=== PATIENT | female | born 1990 | race Caucasian/White ===

== ENCOUNTER 2019-06-15 17:35 | Inpatient (IN) ==
[2019-06-15] MEDS ORDERED: OXYTOCIN 30 UNITS/500 ML BAG IV PRN (20:40)
[2019-06-15] MEDS ORDERED: BUTORPHANOL TARTRATE 1 MG/ML VIAL IV ONE (20:44)
[2019-06-15] MEDS: LACTATED RINGER'S 1,000 ML IV PRN (20:45)
[2019-06-15] MEDS ORDERED: BUTORPHANOL TARTRATE 1 MG/ML VIAL ONE (20:55)
[2019-06-15] MEDS ORDERED: PENICILLIN G POTASSIUM 6 MU in DEXTROSE 5% 250 ML IV ONE (21:15)
[2019-06-15 21:16] LABS: Hematocrit (blood only) 37.9 % (37-47); Hemoglobin 12.5 g/dL (12.0-16.0); Mean Corpuscular Hemoglobin 31.3 pg (25-34); Mean Platelet Volume 12.2 fL (7.4-10.4); Platelet Count 181 K/uL (130-400); RDW Coefficient of Variation 14.1 % (11.5-14.5); RDW Standard Deviation 48.6 fL (36.4-46.3); Red Blood Count 3.99 M/uL (4.2-5.4); White Blood Count 12.69 K/uL (4.8-10.8)
[2019-06-15] MEDS ORDERED: fentaNYL citrate 100 MCG/2 ML VIAL ONE ×2 (22:12→22:35)
[2019-06-15] MEDS ORDERED: ePHEDrine sulfate 50 MG/ML AMP ONE (22:12)
[2019-06-15] MEDS ORDERED: BUPIVACAINE 0.25% 30 ML VIAL ONE (22:13)
[2019-06-15] MEDS ORDERED: fentaNYL 2MCG/ML ROPIV 1.25MG/ML 100 ML BAG EPI ONE (22:13)
--- NOTE | 2019-06-15 22:14 | Anesthesiology Consultation ---
Date of Service June 15, 2019 Assessment & Plan ASA ASA2 Proposed Anesthesia Anesthesia Type: Labor Epidural Risk / Benefits Reviewed With: PT / POA / Parent / Guardian, Accepts Plan and Informed Consent Obtained History Height/Weight Height: 5 ft 3 in Weight: 68.039 kg Allergies Allergy/AdvReac Type Severity Reaction Status Date / Time No Known Allergies Allergy Unverified 06/14/19 16:32 Medications Home Medications Medication Instructions Recorded Confirmed Last Taken vit-iron fum-folic ac 1 tab PO DAILY 06/15/19 06/15/19 06/15/19 08:00 [ Vitamin] Active Medications Generic Name Dose Route Start Last Admin Trade Name Freq PRN Reason Stop Dose Admin Penicillin G Potassium 6 mu/ 262 mls @ 262 mls/hr 06/15/19 21:15 06/15/19 21:22 Dextrose IV 06/15/19 22:14 262 mls/hr 2115 ONE Administration Exercise / Class Metabolic Activity II 4-5 Yardwork/Stairs/Walk up hill Past Anesthesia History No Hx of Anesthesia Complications and No Family Hx of Anesthesia Complications History of PONV No Hx of PONV and No Hx of Motion Sickness Social History Smoking Status: Never smoker Hx Alcohol Use: No Hx Substance Use: No substance use type: does not use Review of Systems denies fever/cough/ colds/ chest pain/ SOB/ LORE Constitutional: no fever and no chills Respiratory: no cough and no dyspnea denies LORE Cardiovascular: no chest pain and no dyspnea on exertion Physical Exam Vital Signs Last Vital Signs Temp 36.7 C 06/15/19 19:25 Pulse 100 H 06/15/19 19:29 Resp 18 06/15/19 19:25 BP 128/76 06/15/19 19:29 ENMT Mouth: no TMJ abnormality and no dentition abnormality Thyromental Distance: > or= 3.5 Finger Breadths Mallampati Class: II Neck neck extension not limited Respiratory normal respiratory effort; no respiratory distress Auscultation: lungs clear to auscultation bilaterally Cardiovascular Rate/Rhythm: regular rate and regular rhythm Neurologic moves all extremities Psychiatric Orientation: alert and oriented x 3 Testing Laboratory Results 06/15/19 20:52
[2019-06-15] MEDS ORDERED: NALOXONE HCL 1 MG in SODIUM CHLORIDE 0.9% 1000ML 1,000 ML IV PRN (22:16)
[2019-06-15] MEDS ORDERED: NALOXONE HCL 0.4 MG/1 ML VIAL/CARP IV PRN (22:16)
[2019-06-15] MEDS ORDERED: fentaNYL 2MCG/ML ROPIV 1.25MG/ML 100 ML BAG EPI PRN (22:16)
[2019-06-15] MEDS ORDERED: NALBUPHINE HCL INJ 10 MG/ML AMP IV PRN (22:16)
[2019-06-15] MEDS ORDERED: ONDANSETRON INJ 2 MG/ML 2 ML VIAL IV PRN (22:16)
[2019-06-15] MEDS ORDERED: DiphenhydrAMINE HCL 50 MG/ML VIAL IV PRN (22:16)
[2019-06-15] MEDS ORDERED: ePHEDrine sulfate 50 MG/ML AMP IV PRN (22:16)
--- NOTE | 2019-06-15 23:06 | Obstetrical Progress Note ---
Date of Service June 15, 2019 Subjective Admit Note 29 F P0000 at 40.5 weeks with early onset of labor. Cervix is 4/90/-1/intact. GBS is positive. FHT Cat 1. Patient to get epidural. Antibiotics running. Results & Data Vital Signs (Past 12 Hours) Vital Signs Temp Pulse Resp BP Pulse Ox 06/15/19 23:01 92 H 97 06/15/19 22:56 103 H 97 06/15/19 22:51 98 H 125/70 97 06/15/19 22:49 104 H 128/73 06/15/19 22:47 105 H 125/68 06/15/19 22:46 101 H 97 06/15/19 22:45 107 H 124/69 06/15/19 22:43 96 H 125/68 06/15/19 22:41 105 H 124/70 97 06/15/19 22:39 106 H 123/71 06/15/19 22:37 100 H 125/72 06/15/19 22:36 101 H 98 06/15/19 22:35 106 H 127/68 06/15/19 22:33 100 H 124/67 06/15/19 22:31 113 H 129/73 98 06/15/19 22:29 112 H 130/73 06/15/19 22:26 111 H 99 06/15/19 22:21 121 H 98 06/15/19 19:29 100 H 128/76 06/15/19 19:25 36.7 C 18 06/15/19 17:41 36.7 C 121 H 20 135/84
[2019-06-16] MEDS: LACTATED RINGER'S 1,000 ML IV PRN ×3 (01:20→11:19)
[2019-06-16] MEDS: PENICILLIN G POTASSIUM 3 MU in DEXTROSE 5% 100 ML IV PRN ×3 (02:15→09:48)
[2019-06-16] MEDS ORDERED: OXYTOCIN 30 UNITS/500 ML BAG IV PRN ×2 (06:42→13:28)
--- NOTE | 2019-06-16 06:44 | Obstetrical Progress Note ---
Date of Service June 16, 2019 Subjective patient checked by nurse and now 6 cm contractions are spaced out EFW 8lb. will start Oxytocin to augment contractions Results & Data Vital Signs (Past 12 Hours) Vital Signs Temp Pulse Resp BP Pulse Ox 06/16/19 06:41 73 95 06/16/19 06:36 76 95 06/16/19 06:34 73 108/56 L 06/16/19 06:31 75 95 06/16/19 06:26 80 95 06/16/19 06:21 75 96 06/16/19 06:19 76 110/57 L 06/16/19 06:16 78 95 06/16/19 06:11 86 97 06/16/19 06:06 92 H 118/69 97 06/16/19 06:04 92 H 115/71 06/16/19 06:02 86 109/63 06/16/19 06:01 86 96 06/16/19 05:59 18 06/16/19 05:56 90 97 06/16/19 05:51 90 96 06/16/19 05:46 90 98 06/16/19 05:41 94 H 96 06/16/19 05:36 79 96 06/16/19 05:34 78 100/60 06/16/19 05:31 82 96 06/16/19 05:30 16 06/16/19 05:26 85 95 06/16/19 05:21 87 95 06/16/19 05:20 79 98/53 L 06/16/19 05:16 87 95 06/16/19 05:11 90 96 06/16/19 05:06 85 95 06/16/19 05:03 97 H 99/58 L 06/16/19 05:01 37.3 C 82 18 95 06/16/19 05:00 18 06/16/19 04:56 89 95 06/16/19 04:52 86 94 06/16/19 04:51 90 95 06/16/19 04:49 76 98/49 L 06/16/19 04:46 89 94 06/16/19 04:43 93 H 94 06/16/19 04:41 87 95 06/16/19 04:36 89 95 06/16/19 04:34 88 97/55 L 06/16/19 04:32 89 94 06/16/19 04:31 99 H 95 06/16/19 04:30 16 06/16/19 04:26 85 95 06/16/19 04:21 85 95 06/16/19 04:19 86 99/50 L 06/16/19 04:16 83 95 06/16/19 04:11 83 95 06/16/19 04:06 87 93/53 L 96 06/16/19 04:01 86 95 06/16/19 04:00 18 06/16/19 03:56 85 96 06/16/19 03:51 88 95 06/16/19 03:49 86 98/55 L 06/16/19 03:46 90 96 06/16/19 03:41 91 H 96 06/16/19 03:36 89 96 06/16/19 03:34 82 99/52 L 06/16/19 03:31 84 96 06/16/19 03:30 16 06/16/19 03:26 90 95 06/16/19 03:21 91 H 95 06/16/19 03:19 98 H 116/62 06/16/19 03:16 91 H 95 06/16/19 03:15 37.2 C 18 06/16/19 03:11 90 95 06/16/19 03:06 85 16 95 06/16/19 03:04 113 H 108/67 06/16/19 03:01 84 95 06/16/19 02:56 94 H 95 06/16/19 02:51 88 106/69 95 06/16/19 02:46 97 H 96 06/16/19 02:41 98 H 96 06/16/19 02:36 95 H 16 98 06/16/19 02:34 88 106/65 06/16/19 02:31 89 95 06/16/19 02:26 85 96 06/16/19 02:21 91 H 100 06/16/19 02:20 92 H 117/68 06/16/19 02:19 37.7 C H 18 06/16/19 02:16 106 H 99 06/16/19 02:15 16 06/16/19 02:11 90 97 06/16/19 02:06 104 H 98 06/16/19 02:04 113 H 117/69 06/16/19 02:01 94 H 96 06/16/19 02:00 18 06/16/19 01:56 96 H 96 06/16/19 01:51 89 96 06/16/19 01:50 88 111/58 L 06/16/19 01:46 88 95 06/16/19 01:41 86 95 06/16/19 01:36 92 H 96 06/16/19 01:34 90 108/61 06/16/19 01:31 85 95 06/16/19 01:30 18 06/16/19 01:26 93 H 95 06/16/19 01:21 96 H 98 06/16/19 01:20 99 H 112/63 06/16/19 01:16 94 H 18 116/63 95 06/16/19 01:11 90 18 95 06/16/19 01:06 88 95 06/16/19 01:01 94 H 95 06/16/19 01:00 18 06/16/19 00:56 87 95 06/16/19 00:51 90 96 06/16/19 00:46 95 H 114/63 95 06/16/19 00:41 87 95 06/16/19 00:36 91 H 96 06/16/19 00:31 89 96 06/16/19 00:30 18 116/62 06/16/19 00:26 104 H 96 06/16/19 00:21 95 H 18 97 06/16/19 00:16 104 H 96 06/16/19 00:15 90 118/64 06/16/19 00:11 100 H 95 06/16/19 00:06 103 H 96 06/16/19 00:01 96 H 18 96 06/16/19 00:00 18 114/62 06/15/19 23:56 91 H 97 06/15/19 23:46 98 H 116/64 97 06/15/19 23:45 101 H 18 97 06/15/19 23:41 100 H 97 06/15/19 23:36 94 H 96 06/15/19 23:31 102 H 18 97 06/15/19 23:30 18 116/64 02 23:26 98 H 96 06/15/19 23:21 98 H 98 06/15/19 23:16 102 H 98 06/15/19 23:15 37.1 C 18 117/63 06/15/19 23:11 105 H 99 06/15/19 23:06 100 H 117/66 97 06/15/19 23:01 92 H 97 06/15/19 22:56 103 H 97 06/15/19 22:51 98 H 125/70 97 06/15/19 22:49 104 H 128/73 06/15/19 22:47 105 H 125/68 06/15/19 22:46 101 H 97 06/15/19 22:45 107 H 124/69 06/15/19 22:43 96 H 125/68 06/15/19 22:41 105 H 124/70 97 06/15/19 22:39 106 H 123/71 06/15/19 22:37 100 H 125/72 06/15/19 22:36 101 H 98 06/15/19 22:35 106 H 127/68 06/15/19 22:33 100 H 124/67 06/15/19 22:31 113 H 129/73 98 06/15/19 22:29 112 H 130/73 06/15/19 22:26 111 H 99 06/15/19 22:21 121 H 98 06/15/19 19:29 100 H 128/76 06/15/19 19:25 36.7 C 18
--- NOTE | 2019-06-16 08:12 | Obstetrical Progress Note ---
Date of Service June 16, 2019 Physical Exam Genitourinary: Manual OB Exam: + cervical dilation 7 cm, + cervical effacement 100% and + station -1 OB Exam Monitor Tracing: + external FHT monitor used, + external uterine monitor used, + category I and + normal FHT variability AROM with Amni-hook with clear fluid Results & Data Vital Signs (Past 12 Hours) Vital Signs Temp Pulse Resp BP Pulse Ox 06/16/19 08:06 83 98 06/16/19 08:04 90 115/61 06/16/19 08:01 84 96 06/16/19 07:56 80 96 06/16/19 07:51 80 96 06/16/19 07:49 79 111/59 L 06/16/19 07:46 88 96 06/16/19 07:41 85 97 06/16/19 07:36 83 96 06/16/19 07:34 86 113/59 L 06/16/19 07:31 83 97 06/16/19 07:26 84 97 06/16/19 07:21 91 H 119/69 97 06/16/19 07:16 90 97 06/16/19 07:11 89 96 06/16/19 07:08 36.9 C 20 06/16/19 07:06 92 H 96 06/16/19 07:05 94 H 115/65 06/16/19 07:01 97 H 97 06/16/19 06:56 78 95 06/16/19 06:51 80 96 06/16/19 06:50 78 107/59 L 06/16/19 06:46 83 16 95 06/16/19 06:41 73 95 06/16/19 06:36 76 95 06/16/19 06:34 73 108/56 L 06/16/19 06:31 75 95 06/16/19 06:30 16 06/16/19 06:26 80 95 06/16/19 06:21 75 96 06/16/19 06:19 76 110/57 L 06/16/19 06:16 78 95 06/16/19 06:11 86 97 06/16/19 06:06 92 H 118/69 97 06/16/19 06:04 92 H 115/71 06/16/19 06:02 86 109/63 06/16/19 06:01 86 96 06/16/19 05:59 18 02/02/20 05:56 90 97 06/16/19 05:51 90 96 06/16/19 05:46 90 98 06/16/19 05:41 94 H 96 06/16/19 05:36 79 96 06/16/19 05:34 78 100/60 06/16/19 05:31 82 96 06/16/19 05:30 16 06/16/19 05:26 85 95 06/16/19 05:21 87 95 06/16/19 05:20 79 98/53 L 06/16/19 05:16 87 95 06/16/19 05:11 90 96 06/16/19 05:06 85 95 06/16/19 05:03 97 H 99/58 L 06/16/19 05:01 37.3 C 82 18 95 06/16/19 05:00 18 06/16/19 04:56 89 95 06/16/19 04:52 86 94 06/16/19 04:51 90 95 06/16/19 04:49 76 98/49 L 06/16/19 04:46 89 94 06/16/19 04:43 93 H 94 06/16/19 04:41 87 95 06/16/19 04:36 89 95 06/16/19 04:34 88 97/55 L 06/16/19 04:32 89 94 06/16/19 04:31 99 H 95 06/16/19 04:30 16 06/16/19 04:26 85 95 06/16/19 04:21 85 95 06/16/19 04:19 86 99/50 L 06/16/19 04:16 83 95 06/16/19 04:11 83 95 06/16/19 04:06 87 93/53 L 96 06/16/19 04:01 86 95 06/16/19 04:00 18 06/16/19 03:56 85 96 06/16/19 03:51 88 95 06/16/19 03:49 86 98/55 L 06/16/19 03:46 90 96 06/16/19 03:41 91 H 96 06/16/19 03:36 89 96 06/16/19 03:34 82 99/52 L 06/16/19 03:31 84 96 06/16/19 03:30 16 06/16/19 03:26 90 95 06/16/19 03:21 91 H 95 06/16/19 03:19 98 H 116/62 06/16/19 03:16 91 H 95 06/16/19 03:15 37.2 C 18 06/16/19 03:11 90 95 06/16/19 03:06 85 16 95 06/16/19 03:04 113 H 108/67 06/16/19 03:01 84 95 06/16/19 02:56 94 H 95 06/16/19 02:51 88 106/69 95 06/16/19 02:46 97 H 96 06/16/19 02:41 98 H 96 06/16/19 02:36 95 H 16 98 06/16/19 02:34 88 106/65 06/16/19 02:31 89 95 06/16/19 02:26 85 96 06/16/19 02:21 91 H 100 06/16/19 02:20 92 H 117/68 06/16/19 02:19 37.7 C H 18 06/16/19 02:16 106 H 99 06/16/19 02:15 16 06/16/19 02:11 90 97 06/16/19 02:06 104 H 98 06/16/19 02:04 113 H 117/69 06/16/19 02:01 94 H 96 06/16/19 02:00 18 06/16/19 01:56 96 H 96 06/16/19 01:51 89 96 06/16/19 01:50 88 111/58 L 06/16/19 01:46 88 95 06/16/19 01:41 86 95 06/16/19 01:36 92 H 96 06/16/19 01:34 90 108/61 06/16/19 01:31 85 95 06/16/19 01:30 18 06/16/19 01:26 93 H 95 06/16/19 01:21 96 H 98 06/16/19 01:20 99 H 112/63 06/16/19 01:16 94 H 18 116/63 95 06/16/19 01:11 90 18 95 06/16/19 01:06 88 95 06/16/19 01:01 94 H 95 06/16/19 01:00 18 06/16/19 00:56 87 95 06/16/19 00:51 90 96 06/16/19 00:46 95 H 114/63 95 06/16/19 00:41 87 95 06/16/19 00:36 91 H 96 06/16/19 00:31 89 96 06/16/19 00:30 18 116/62 06/16/19 00:26 104 H 96 06/16/19 00:21 95 H 18 97 06/16/19 00:16 104 H 96 06/16/19 00:15 90 118/64 06/16/19 00:11 100 H 95 06/16/19 00:06 103 H 96 06/16/19 00:01 96 H 18 96 06/16/19 00:00 18 114/62 06/15/19 23:56 91 H 97 06/15/19 23:46 98 H 116/64 97 06/15/19 23:45 101 H 18 97 06/15/19 23:41 100 H 97 06/15/19 23:36 94 H 96 06/15/19 23:31 102 H 18 97 06/15/19 23:30 18 116/64 06/15/19 23:26 98 H 96 06/15/19 23:21 98 H 98 06/15/19 23:16 102 H 98 06/15/19 23:15 37.1 C 18 117/63 06/15/19 23:11 105 H 99 06/15/19 23:06 100 H 117/66 97 06/15/19 23:01 92 H 97 06/15/19 22:56 103 H 97 06/15/19 22:51 98 H 125/70 97 06/15/19 22:49 104 H 128/73 06/15/19 22:47 105 H 125/68 06/15/19 22:46 101 H 97 06/15/19 22:45 107 H 124/69 06/15/19 22:43 96 H 125/68 06/15/19 22:41 105 H 124/70 97 06/15/19 22:39 106 H 123/71 06/15/19 22:37 100 H 125/72 06/15/19 22:36 101 H 98 06/15/19 22:35 106 H 127/68 06/15/19 22:33 100 H 124/67 06/15/19 22:31 113 H 129/73 98 02/01/20 22:29 112 H 130/73 06/15/19 22:26 111 H 99 06/15/19 22:21 121 H 98
--- NOTE | 2019-06-16 10:25 | Obstetrical Progress Note ---
Date of Service June 16, 2019 Physical Exam Genitourinary: Manual OB Exam: + cervical dilation 9 cm, + cervical effacement 100%, + station 0 and + amniotic fluid clear OB Exam Monitor Tracing: + external FHT monitor used, + external uterine monitor used, + category I and + normal FHT variability Results & Data Vital Signs (Past 12 Hours) Vital Signs Temp Pulse Resp BP Pulse Ox 06/16/19 10:21 92 H 96 06/16/19 10:19 76 108/57 L 06/16/19 10:16 81 94 06/16/19 10:11 85 96 06/16/19 10:06 80 96 06/16/19 10:05 76 111/59 L 06/16/19 10:01 86 95 06/16/19 09:56 93 H 96 06/16/19 09:51 95 H 96 06/16/19 09:50 87 110/59 L 06/16/19 09:47 86 94 06/16/19 09:46 88 95 06/16/19 09:42 83 94 06/16/19 09:41 80 95 06/16/19 09:36 82 96 06/16/19 09:35 83 107/58 L 06/16/19 09:34 88 94 06/16/19 09:31 94 H 95 06/16/19 09:26 87 96 06/16/19 09:21 86 97 06/16/19 09:19 83 107/61 06/16/19 09:16 79 95 06/16/19 09:11 87 95 06/16/19 09:09 81 94 06/16/19 09:06 82 96 06/16/19 09:04 85 108/63 06/16/19 09:01 86 95 06/16/19 08:56 97 H 97 06/16/19 08:51 83 96 06/16/19 08:49 106 H 110/63 06/16/19 08:46 90 95 06/16/19 08:41 74 96 06/16/19 08:36 87 95 06/16/19 08:34 86 109/56 L 06/16/19 08:31 84 96 06/16/19 08:26 82 97 06/16/19 08:21 86 97 06/16/19 08:20 86 116/67 06/16/19 08:16 84 97 06/16/19 08:11 122 H 97 06/16/19 08:06 83 98 06/16/19 08:04 90 115/61 06/16/19 08:01 84 96 06/16/19 07:56 80 96 06/16/19 07:51 80 96 06/16/19 07:49 79 111/59 L 06/16/19 07:46 88 96 06/16/19 07:41 85 97 06/16/19 07:36 83 96 06/16/19 07:34 86 113/59 L 06/16/19 07:31 83 97 06/16/19 07:26 84 97 06/16/19 07:21 91 H 119/69 97 06/16/19 07:16 90 97 06/16/19 07:11 89 96 06/16/19 07:08 36.9 C 20 06/16/19 07:06 92 H 96 06/16/19 07:05 94 H 115/65 06/16/19 07:01 97 H 97 06/16/19 06:56 78 95 06/16/19 06:51 80 96 06/16/19 06:50 78 107/59 L 06/16/19 06:46 83 16 95 06/16/19 06:41 73 95 06/16/19 06:36 76 95 06/16/19 06:34 73 108/56 L 06/16/19 06:31 75 95 06/16/19 06:30 16 06/16/19 06:26 80 95 06/16/19 06:21 75 96 06/16/19 06:19 76 110/57 L 06/16/19 06:16 78 95 06/16/19 06:11 86 97 06/16/19 06:06 92 H 118/69 97 06/16/19 06:04 92 H 115/71 06/16/19 06:02 86 109/63 06/16/19 06:01 86 96 06/16/19 05:59 18 06/16/19 05:56 90 97 06/16/19 05:51 90 96 06/16/19 05:46 90 98 06/16/19 05:41 94 H 96 06/16/19 05:36 79 96 06/16/19 05:34 78 100/60 06/16/19 05:31 82 96 06/16/19 05:30 16 06/16/19 05:26 85 95 06/16/19 05:21 87 95 06/16/19 05:20 79 98/53 L 06/16/19 05:16 87 95 06/16/19 05:11 90 96 06/16/19 05:06 85 95 06/16/19 05:03 97 H 99/58 L 06/16/19 05:01 37.3 C 82 18 95 06/16/19 05:00 18 06/16/19 04:56 89 95 06/16/19 04:52 86 94 06/16/19 04:51 90 95 06/16/19 04:49 76 98/49 L 06/16/19 04:46 89 94 06/16/19 04:43 93 H 94 06/16/19 04:41 87 95 06/16/19 04:36 89 95 06/16/19 04:34 88 97/55 L 06/16/19 04:32 89 94 06/16/19 04:31 99 H 95 06/16/19 04:30 16 06/16/19 04:26 85 95 06/16/19 04:21 85 95 06/16/19 04:19 86 99/50 L 06/16/19 04:16 83 95 06/16/19 04:11 83 95 06/16/19 04:06 87 93/53 L 96 06/16/19 04:01 86 95 06/16/19 04:00 18 06/16/19 03:56 85 96 06/16/19 03:51 88 95 06/16/19 03:49 86 98/55 L 06/16/19 03:46 90 96 06/16/19 03:41 91 H 96 06/16/19 03:36 89 96 06/16/19 03:34 82 99/52 L 06/16/19 03:31 84 96 06/16/19 03:30 16 06/16/19 03:26 90 95 06/16/19 03:21 91 H 95 06/16/19 03:19 98 H 116/62 06/16/19 03:16 91 H 95 06/16/19 03:15 37.2 C 18 06/16/19 03:11 90 95 06/16/19 03:06 85 16 95 06/16/19 03:04 113 H 108/67 06/16/19 03:01 84 95 06/16/19 02:56 94 H 95 06/16/19 02:51 88 106/69 95 06/16/19 02:46 97 H 96 06/16/19 02:41 98 H 96 06/16/19 02:36 95 H 16 98 06/16/19 02:34 88 106/65 06/16/19 02:31 89 95 06/16/19 02:26 85 96 06/16/19 02:21 91 H 100 06/16/19 02:20 92 H 117/68 06/16/19 02:19 37.7 C H 18 06/16/19 02:16 106 H 99 06/16/19 02:15 16 06/16/19 02:11 90 97 06/16/19 02:06 104 H 98 06/16/19 02:04 113 H 117/69 06/16/19 02:01 94 H 96 06/16/19 02:00 18 06/16/19 01:56 96 H 96 06/16/19 01:51 89 96 06/16/19 01:50 88 111/58 L 06/16/19 01:46 88 95 06/16/19 01:41 86 95 06/16/19 01:36 92 H 96 06/16/19 01:34 90 108/61 06/16/19 01:31 85 95 06/16/19 01:30 18 06/16/19 01:26 93 H 95 06/16/19 01:21 96 H 98 06/16/19 01:20 99 H 112/63 06/16/19 01:16 94 H 18 116/63 95 06/16/19 01:11 90 18 95 06/16/19 01:06 88 95 06/16/19 01:01 94 H 95 06/16/19 01:00 18 06/16/19 00:56 87 95 06/16/19 00:51 90 96 06/16/19 00:46 95 H 114/63 95 06/16/19 00:41 87 95 06/16/19 00:36 91 H 96 06/16/19 00:31 89 96 06/16/19 00:30 18 116/62 06/16/19 00:26 104 H 96 06/16/19 00:21 95 H 18 97 06/16/19 00:16 104 H 96 06/16/19 00:15 90 118/64 06/16/19 00:11 100 H 95 06/16/19 00:06 103 H 96 06/16/19 00:01 96 H 18 96 06/16/19 00:00 18 114/62 06/15/19 23:56 91 H 97 06/15/19 23:46 98 H 116/64 97 06/15/19 23:45 101 H 18 97 06/15/19 23:41 100 H 97 06/15/19 23:36 94 H 96 06/15/19 23:31 102 H 18 97 06/15/19 23:30 18 116/64 06/15/19 23:26 98 H 96 06/15/19 23:21 98 H 98 06/15/19 23:16 102 H 98 06/15/19 23:15 37.1 C 18 117/63 06/15/19 23:11 105 H 99 06/15/19 23:06 100 H 117/66 97 06/15/19 23:01 92 H 97 06/15/19 22:56 103 H 97 06/15/19 22:51 98 H 125/70 97 06/15/19 22:49 104 H 128/73 06/15/19 22:47 105 H 125/68 06/15/19 22:46 101 H 97 06/15/19 22:45 107 H 124/69 06/15/19 22:43 96 H 125/68 06/15/19 22:41 105 H 124/70 97 06/15/19 22:39 106 H 123/71 06/15/19 22:37 100 H 125/72 06/15/19 22:36 101 H 98 06/15/19 22:35 106 H 127/68 06/15/19 22:33 100 H 124/67 06/15/19 22:31 113 H 129/73 98 06/15/19 22:29 112 H 130/73 06/15/19 22:26 111 H 99
--- NOTE | 2019-06-16 13:07 | Delivery Summary ---
Vaginal Delivery Summary Date of Service June 16, 2019 Vaginal Delivery Summary Delivery Note live male over intact perineum with delayed cord clamping and Apgars 8/9 weight pending. Cord blood obtained and placenta delivered spontaneously and intact. Small vaginal tear on left sidewall of vagina repaired with 3/0 Vicryl. EBL 200 ml. Final sponge, needle and instrument count are correct. Mom and baby in stable condition.
[2019-06-16] MEDS ORDERED: SUPERCREAM 0.870% 15 GM JAR EXT PRN (13:28)
[2019-06-16] MEDS ORDERED: bisacodyL 10 MG SUPP PR PRN (13:28)
[2019-06-16] MEDS ORDERED: BENZOCAINE 20% AER SPR 82.5 GM CAN EXT PRN (13:28)
[2019-06-16] MEDS ORDERED: HYDROCORTISONE ACETATE 25 MG SUPP PR PRN (13:28)
[2019-06-16] MEDS ORDERED: DIPHTHERIA/TETANUS/PERTUSSIS 0.5 ML SYR/VIAL IM ONE (13:28)
[2019-06-16] MEDS ORDERED: ACETAMINOPHEN 325 MG TAB PO PRN (13:28)
--- NOTE | 2019-06-16 14:05 | Anesthesia Procedure Note ---
Date of Service June 16, 2019 Epidural catheter removed intact. Site clean without redness or edema. Patient satisfied with care. VSS Anesthesia Post Epidural Note Vital Signs Vital Signs: Temp Pulse Resp BP Pulse Ox 37.1 C 108 H 18 119/65 97 06/16/19 11:19 06/16/19 13:49 06/16/19 13:35 06/16/19 13:49 06/16/19 12:41 Notes Mental Status: alert / awake / arousable and participated in evaluation Patient Amnestic to Procedure: Yes Nausea / Vomiting: see Notes below Pain: adequately controlled Airway Patency, RR, SpO2: stable & adequate BP & HR: stable & adequate Hydration State: stable & adequate Anesthetic Complications: no major complications apparent and Pt Satisfied with anesthetic care
[2019-06-16] MEDS: IBUPROFEN 600 MG TAB PO PRN ×2 (16:02→20:12)
[2019-06-16] MEDS: DOCUSATE SODIUM 100 MG CAP PO SCH (20:12)
[2019-06-17] MEDS: IBUPROFEN 600 MG TAB PO PRN ×3 (00:32→16:28)
[2019-06-17 06:08] LABS: Hematocrit (blood only) 29.7 % (37-47); Hemoglobin 9.9 g/dL (12.0-16.0); Mean Corpuscular Hemoglobin 31.7 pg (25-34); Mean Corpuscular Hgb Conc 33.3 g/dL (32-36); Mean Corpuscular Volume 95.2 fL (80-100); Mean Platelet Volume 12.1 fL (7.4-10.4); Platelet Count 183 K/uL (130-400); RDW Coefficient of Variation 14.3 % (11.5-14.5); RDW Standard Deviation 49.7 fL (36.4-46.3); Red Blood Count 3.12 M/uL (4.2-5.4); White Blood Count 14.33 K/uL (4.8-10.8)
--- NOTE | 2019-06-17 08:35 | Obstetrical Progress Note ---
Date of Service June 17, 2019 Assessment & Plan (1) normal course: PPD #1 pot doing well anticipate disch tomorrow Subjective Ambulation: ambulating normally Voiding: no voiding problems Passing Gas:: Yes Diet Tolerance:: regular diet Lochia:: Small Feeding Type:: breast feeding Review of Systems All systems reviewed & are unremarkable except as noted in HPI & below Physical Exam Constitutional WD/WN, vitals as above well developed and well nourished Eyes PERRL, conjunctivae normal, anicteric sclerae Neck trachea midline, no thyromegaly Respiratory normal respiratory effort, lungs clear to auscultation Auscultation: no crackles, no rales and no wheezes Cardiovascular RRR, no murmur, no edema Gastrointestinal (Abdomen) normal bowel sounds, soft, nontender, no hepatosplenomegaly Uterus is below umbilicus Musculoskeletal no cyanosis or clubbing, extremities motor strength 5/5 Skin no rashes, warm and dry Neurologic patellar DTR's 2+ bilat, sensation intact Psychiatric A+Ox3, euthymic affect Genitourinary normal external appearance Results & Data Vital Signs (Past 12 Hours) Vital Signs Temp Pulse Resp BP Pulse Ox 06/17/19 05:05 36.8 C 105 H 16 120/79 98 06/17/19 00:30 36.5 C 100 H 17 116/78 97
[2019-06-17] MEDS: DOCUSATE SODIUM 100 MG CAP PO SCH ×2 (08:39→20:48)
[2019-06-17] MEDS: FERROUS SULFATE 325 MG TAB PO SCH (08:39)
[2019-06-17] MEDS: PRENATAL VITAMIN 1 TAB PO SCH (08:39)
[2019-06-17] MEDS ORDERED: NON-FORMULARY MEDICATION (Prenatal Vit-Iron Fum-Folic Ac [Prenatal Vitamin] 1 TAB) PO SCH (09:00)
[2019-06-17] MEDS ORDERED: bisacodyL 5 MG TABEC PO SCH (20:00)
[2019-06-18 06:29] LABS: Hematocrit (blood only) 33.1 % (37-47); Hemoglobin 10.8 g/dL (12.0-16.0)
[2019-06-18] MEDS: DOCUSATE SODIUM 100 MG CAP PO SCH (07:53)
[2019-06-18] MEDS: PRENATAL VITAMIN 1 TAB PO SCH (07:53)
[2019-06-18] MEDS: FERROUS SULFATE 325 MG TAB PO SCH (07:53)
--- NOTE | 2019-06-18 08:15 | Obstetrical Progress Note ---
Date of Service June 18, 2019 Subjective Patient is seen and examined. She feels well, no complaints. Desires d/c Ambulating without dizziness Voiding without difficulty Tolerating regular diet with out N&V Bleeding is minimal No fever/ chills/ CP/ SOB/ N&V/ Leg pain Breast feeding without problems Vital Signs Temp Pulse Pulse Resp BP BP Pulse Ox 06/18/19 08:00 37.1 C 88 18 114/75 97 06/17/19 23:20 36.7 C 75 14 115/64 98 06/17/19 19:30 36.8 C 96 H 18 129/74 99 06/17/19 16:05 37.1 C 95 H 16 116/64 98 06/17/19 12:15 36.7 C 87 18 109/70 99 Lab Results 06/15/19 06/17/19 06/18/19 Range/Units 20:52 05:43 05:44 WBC 12.69 H 14.33 H (4.8-10.8) K/uL RBC 3.99 L 3.12 L (4.2-5.4) M/uL Hgb 12.5 9.9 L 10.8 L (12.0-16.0) g/dL Hct 37.9 29.7 L 33.1 L (37-47) % MCV 95.0 95.2 (80-100) fL MCH 31.3 31.7 (25-34) pg MCHC 33.0 33.3 (32-36) g/dL RDW Std Deviation 48.6 H 49.7 H (36.4-46.3) fL RDW Coeff of [place] 14.1 14.3 (11.5-14.5) % Plt Count 181 183 (130-400) K/uL MPV 12.2 H 12.1 H (7.4-10.4) fL PE: General: Alert, orientedx3, NAD Abd: soft, NT, fundus firm, below Umbilicus Perineum intact, Lochia rubra minimal Ext; NT, no edema AP: 29 yo s/p , ppd# 2 VSS Afebrile doing well Continue routine care All questions were answered Discussed when to call D/C home , f/u in office Results & Data Vital Signs (Past 12 Hours) Vital Signs Temp Pulse Pulse Resp BP BP Pulse Ox 06/18/19 08:00 37.1 C 88 18 114/75 97 06/17/19 23:20 36.7 C 75 14 115/64 98
== END 2019-06-18 12:02 | disposition home or self-care (01) | DRG 807 ==
LOC: OPB 17:35 → 4S1 17:38 → 4S2 06-16 15:05

== ENCOUNTER 2021-07-01 08:12 | Inpatient (IN) ==
[2021-07-01] MEDS ORDERED: OXYTOCIN 30 UNITS/500 ML BAG IV PRN ×2 (13:38→22:38)
[2021-07-01] MEDS ORDERED: DINOPROSTONE 10 MG INSERT PV ONE (13:38)
[2021-07-01] MEDS ORDERED: PENICILLIN G POTASSIUM 6 MU in DEXTROSE 5% 250 ML IV STA (13:38)
[2021-07-01 14:13] LABS: Hematocrit (blood only) 36.5 % (37-47); Mean Corpuscular Hemoglobin 31.7 pg (25-34); Mean Corpuscular Hgb Conc 32.9 g/dL (32-36); Mean Corpuscular Volume 96.6 fL (80-100); Mean Platelet Volume 11.7 fL (7.4-10.4); Platelet Count 165 K/uL (130-400); RDW Coefficient of Variation 14.2 % (11.5-14.5); RDW Standard Deviation 50.1 fL (36.4-46.3); Red Blood Count 3.78 M/uL (4.2-5.4); White Blood Count 9.52 K/uL (4.8-10.8)
[2021-07-01] MEDS ORDERED: BUTORPHANOL TARTRATE 1 MG/ML VIAL IV PRN (15:23)
--- NOTE | 2021-07-01 15:23 | History & Physical Report ---
Date of Service July 01, 2021 Assessment & Plan (1) Post-dates : Plan: 31-year-old -0-0-1 at 41 weeks and 1 day gestation presenting to labor and delivery for scheduled induction of labor, Vital signs stable afebrile, Heart rate reassuring, GBS positive, Cervix unfavorable, Plan to admit, monitor, labs, Cervidil for cervical ripening, penicillin for GBS, All questions were answered. (2) GBS (group B Streptococcus carrier), +RV culture, currently : Admission and Anticipated Discharge Date Admission Date: July 01, 2021 History of Present Illness Primary Care Provider: Lowell Severino DO Patient is an 32-year-old -0-0-1 at 41 weeks and 1 day of gestation who was scheduled for induction of labor for postdates. She has been feeling mild irregular tightening of uterus 4 days but they have not been painful. Denies leakage of fluid nor vaginal bleeding. She reports good movements. Her has been uncomplicated except GBS positive. Denies medical problems, surgeries, any medications except vitamins and Valtrex as needed for cold sores. She denies any history of genital herpes. 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 Surgical History H/O elbow surgery [place] teeth extracted Family History Grandfather (Maternal) Diabetes Skin cancer Grandfather (Paternal) Skin cancer Social History Smoking Status: Never smoker Hx Alcohol Use: No Hx Substance Use: No Preferred Language: Latvian Communication Ability: Effective Wet Process Miller Required: No Beliefs That Will Affect Care: None marital status: Current Living Situation: Spouse and Family Other Information That Helps Us Care for You: No Feels Safe at Home: Yes Safety Concerns: Feels Safe At This Time Assistive Devices: None OB History Full-term in 2019, uncomplicated, live male , 8 pounds 2 ounces. 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 History of STDs, no history of herpes, chlamydia, gonorrhea Review of Systems as per Subjective / HPI Physical Exam Constitutional: well developed and well nourished She is comfortable, not in acute distress Gastrointestinal (Abdomen): normal bowel sounds, soft, nontender, no hepatosplenomegaly (Distended, gravid) Murphy's 8 pounds Genitourinary: normal external appearance OB Exam Abdomen: + vertex Manual OB Exam: + cervical dilation 2 cm, + cervical effacement 30% and + station high (Posterior) OB Exam Monitor Tracing: + external uterine monitor used and + category I Results & Data ([facility]) Vital Signs (Past 12 Hours) Vital Signs Temp Pulse Resp BP 07/01/21 15:14 97 H 115/71 07/01/21 12:45 37.1 C 20 Laboratory Results Lab Results 07/01/21 Range/Units 13:47 WBC 9.52 (4.8-10.8) K/uL RBC 3.78 L (4.2-5.4) M/uL Hgb 12.0 (12.0-16.0) g/dL Hct 36.5 L (37-47) % MCV 96.6 (80-100) fL MCH 31.7 (25-34) pg MCHC 32.9 (32-36) g/dL RDW Std Deviation 50.1 H (36.4-46.3) fL RDW Coeff of [place] 14.2 (11.5-14.5) % Plt Count 165 (130-400) K/uL MPV 11.7 H (7.4-10.4) fL Code Status & VTE Plan VTE Prophylaxis Plan VTE Prophylaxis will be ordered: No
[2021-07-01] MEDS ORDERED: ePHEDrine sulfate 50 MG/ML AMP ONE (19:05)
[2021-07-01] MEDS ORDERED: SODIUM CHLORIDE 0.9% INJ 10 ML VIAL ONE (19:05)
[2021-07-01] MEDS ORDERED: BUPIVACAINE 0.25% 30 ML VIAL ONE (19:05)
[2021-07-01] MEDS ORDERED: fentaNYL 2MCG/ML ROPIVACAINE 1.25MG/ML 100 ML BAG EPI ONE (19:06)
[2021-07-01] MEDS ORDERED: fentaNYL citrate 100 MCG/2 ML VIAL ONE (19:06)
[2021-07-01] MEDS: LACTATED RINGER'S 1,000 ML IV PRN ×2 (19:14→23:57)
[2021-07-01] MEDS ORDERED: LACTATED RINGER'S 500 ML IV ONE (19:21)
--- NOTE | 2021-07-01 19:21 | Obstetrical Progress Note ---
Date of Service July 01, 2021 Assessment & Plan Admission and Anticipated Discharge Date Admission Date: July 01, 2021 Subjective Patient is reevaluated. She started to feel contractions after 6 PM and they got more regular and painful after 6:30 PM. They have been every 1 to 2 minutes regularly since then. Patient rates the pain 8 out of 10 but declines any kind of pain medications including IV pain medication and epidural. Vital signs stable afebrile, heart rate category 1, Vaginal exam, Cervidil was removed, cervix is 2 cm, 40%, posterior and -3. Start IV fluids, IV penicillin. Continue to monitor closely. Results & Data ([facility]) Vital Signs (Past 12 Hours) Vital Signs Temp Pulse Resp BP 07/01/21 15:14 97 H 115/71 07/01/21 15:13 36.6 C 20 07/01/21 12:52 37.1 C 20 121/87 07/01/21 12:45 37.1 C 20
[2021-07-01] MEDS: D5W AND LACTATED RINGERS 1,000 ML IV SCH (20:19)
[2021-07-01] MEDS ORDERED: diphenhydrAMINE Capsule 25 MG CAP PO PRN (22:36)
--- NOTE | 2021-07-01 22:38 | Obstetrical Progress Note ---
Date of Service July 01, 2021 Assessment & Plan Admission and Anticipated Discharge Date Admission Date: July 01, 2021 Subjective Patient is reevaluated. She still feels the contractions but they are not as painful as before. She took a nap in between but woke up. Vital signs stable afebrile, heart rate category 1, [place] with regular contractions every 1 to 3 minutes, Vaginal exam, cervix is 2 to 3 cm dilated, 40% effaced, posterior and high, We will continue to monitor and start oxytocin per protocol when contractions spaced out. All questions were answered. Results & Data ([facility]) Vital Signs (Past 12 Hours) Vital Signs Temp Pulse Resp BP 07/01/21 19:23 18 07/01/21 19:20 36.7 C 84 18 113/70 07/01/21 15:14 97 H 115/71 07/01/21 15:13 36.6 C 20 07/01/21 12:52 37.1 C 20 121/87 07/01/21 12:45 37.1 C 20
[2021-07-01] MEDS: PENICILLIN G POTASSIUM 3 MU in DEXTROSE 5% 100 ML IV PRN (22:58)
[2021-07-02] MEDS: D5W AND LACTATED RINGERS 1,000 ML IV SCH (02:14)
[2021-07-02] MEDS: PENICILLIN G POTASSIUM 3 MU in DEXTROSE 5% 100 ML IV PRN ×4 (03:41→17:04)
[2021-07-02] MEDS: LACTATED RINGER'S 1,000 ML IV PRN ×2 (13:07→17:56)
[2021-07-02] MEDS ORDERED: Nursing to Pharmacy Communication SCH (14:45)
--- NOTE | 2021-07-02 15:30 | Labor Progress Brief Note ---
Date of Service July 02, 2021 Assessment & Plan Admission and Anticipated Discharge Date Admission Date: July 01, 2021 Physical Exam Genitourinary: Manual OB Exam: + cervical dilation 3 cm and 4 cm, + cervical effacement 70%, + station -2 and + amniotic fluid clear OB Exam Monitor Tracing: + external FHT monitor used, + external uterine monitor used, + category I and + normal FHT variability AROM with Amni-hook clear fluid Results & Data ([facility]) Vital Signs (Past 12 Hours) Vital Signs Temp Pulse Resp BP 07/02/21 15:26 85 128/77 07/02/21 13:50 100 H 115/77 07/02/21 08:58 93 H 120/76 07/02/21 07:38 109 H 120/72 07/02/21 07:34 36.6 C 107 H 20 118/74 07/02/21 05:30 18 07/02/21 05:00 37.0 C 18
[2021-07-02] MEDS ORDERED: diphenhydrAMINE 50 MG/ML VIAL IV PRN (15:43)
[2021-07-02] MEDS ORDERED: NALOXONE HCL 0.4 MG/1 ML VIAL/CARP IV PRN (15:43)
[2021-07-02] MEDS ORDERED: NALBUPHINE HCL INJ 10 MG/ML AMP IV PRN (15:43)
[2021-07-02] MEDS ORDERED: fentaNYL 2MCG/ML ROPIVACAINE 1.25MG/ML 100 ML BAG EPI PRN (15:43)
[2021-07-02] MEDS ORDERED: ePHEDrine sulfate 50 MG/ML AMP IV PRN (15:43)
[2021-07-02] MEDS ORDERED: ONDANSETRON INJ 2 MG/ML 2 ML VIAL IV PRN (15:43)
[2021-07-02] MEDS ORDERED: NALOXONE HCL 1 MG in SODIUM CHLORIDE 0.9% 1000ML 1,000 ML IV PRN (15:43)
[2021-07-02] MEDS ORDERED: fentaNYL citrate 100 MCG/2 ML VIAL ONE (16:09)
[2021-07-02] MEDS ORDERED: SODIUM CHLORIDE 0.9% INJ 10 ML VIAL ONE (16:09)
[2021-07-02] MEDS ORDERED: ePHEDrine sulfate 50 MG/ML AMP ONE (16:09)
[2021-07-02] MEDS ORDERED: fentaNYL 2MCG/ML ROPIVACAINE 1.25MG/ML 100 ML BAG EPI ONE (16:09)
[2021-07-02] MEDS ORDERED: BUPIVACAINE 0.25% 30 ML VIAL ONE (16:09)
--- NOTE | 2021-07-02 16:21 | Anesthesiology Consultation ---
Date of Service July 02, 2021 Assessment & Plan Chart Review Chart Review: Patient NOT seen in Pre Admission Testing and Acceptable Risk for Labor Epidural Consults Requested none ASA ASA2 Proposed Anesthesia Anesthesia Type: Labor Epidural and CSE Risk / Benefits Reviewed With: PT / POA / Parent / Guardian, Accepts Plan and Informed Consent Obtained History Height/Weight Height: 5 ft 3 in Weight: 69.853 kg Allergies Allergy/AdvReac Type Severity Reaction Status Date / Time No Known Allergies Allergy Verified 07/01/21 13:14 Medications Home Medications Medication Instructions Recorded Confirmed Last Taken vitamins-iron fumarate 27 1 tab PO DAILY 06/15/19 07/01/21 1 Day Ago mg iron-folic acid 0.8 mg tablet ~06/30/21 ( Vitamin) cholecalciferol (vitamin D3) 25 mcg PO DAILY 07/01/21 07/01/21 Unknown valacyclovir 1 gram tablet 0.01 mg PO BID 07/01/21 07/01/21 2 Days Ago ~06/29/21 Active Medications Generic Name Dose Route Start Last Admin Trade Name Darshan PRN Reason Stop Dose Admin Diphenhydramine HCl 25 mg 07/01/21 22:36 07/01/21 22:58 Diphenhydramine Capsule 25 Mg Cap PO 07/31/21 22:35 25 mg Q6 PRN Administration Itching Lactated Ringer's 1,000 mls @ 150 mls/hr 07/01/21 13:38 07/02/21 13:07 Lr IV 07/03/21 13:37 150 mls/hr .Q6H40M PRN Administration L&D Protocol Protocol Penicillin G Potassium 3 mu/ 106 mls @ 100 mls/hr 07/01/21 16:38 07/02/21 12:20 Dextrose IV 07/11/21 16:37 100 mls/hr Q4H PRN Administration GBS(+) Until Delivery Oxytocin 30 units in 500 mls @ 11 mls/hr 07/01/21 22:38 07/02/21 15:15 Pitocin IV 07/03/21 22:37 0.66 units/hr .Q24H PRN 11 mls/hr Labor Induction/Augmentation Titration Protocol 0.66 UNITS/HR NPO Date Last Intake of Fluids: 07/02/21 Time Last Intake of Fluids: 15:00 Date Last Intake of Solids: 07/01/21 Time Last Intake of Solids: 19:00 Past Medical History Medical History Anemia 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 Exercise / Class Metabolic Activity II 4-5 Yardwork/Stairs/Walk up hill Past Family History Family History Grandfather (Maternal) Diabetes Skin cancer Grandfather (Paternal) Skin cancer Past Surgical History Surgical History H/O elbow surgery [place] teeth extracted Past Anesthesia History No Hx of Anesthesia Complications and No Family Hx of Anesthesia Complications History of PONV No Hx of PONV and No Hx of Motion Sickness Social History Smoking Status: Never smoker Hx Alcohol Use: No Hx Substance Use: No substance use type: does not use Review of Systems no chest pain or sob Physical Exam Vital Signs Last Vital Signs Temp 36.6 C 07/02/21 07:34 Pulse 93 H 07/02/21 16:16 Resp 20 07/02/21 07:34 BP 128/77 07/02/21 15:26 Pulse Ox 100 07/02/21 16:16 ENMT Mouth: no TMJ abnormality Thyromental Distance: > or= 3.5 Finger Breadths Mallampati Class: II Neck normal visual inspection Respiratory normal respiratory effort Auscultation: lungs clear to auscultation bilaterally Cardiovascular Rate/Rhythm: regular rate and regular rhythm Musculoskeletal Spine: normal cervical ROM Neurologic moves all extremities Psychiatric Orientation: alert and oriented x 3 Testing Laboratory Results 07/01/21 13:47
--- NOTE | 2021-07-02 19:35 | Delivery Summary ---
Vaginal Delivery Summary Date of Service July 02, 2021 Vaginal Delivery Summary Delivery Note live male FRANCOIS over intact perineum with delayed cord clamping and Apgars 8/8 weight pending. Cord blood obtained followed by spontaneous delivery of intact placenta. No tears. EBL 200 ml. Final sponge and instrument count are correct. Mom and baby stable.
[2021-07-02] MEDS ORDERED: HYDROCORTISONE ACETATE 25 MG SUPP PR PRN (20:01)
[2021-07-02] MEDS ORDERED: OXYTOCIN 30 UNITS/500 ML BAG IV PRN (20:01)
[2021-07-02] MEDS ORDERED: DIPHTHERIA/TETANUS/PERTUSSIS 0.5 ML SYR/VIAL IM ONE (20:01)
[2021-07-02] MEDS ORDERED: BENZOCAINE 20% AER SPR 82.5 GM CAN EXT PRN (20:01)
[2021-07-02] MEDS ORDERED: ACETAMINOPHEN 325 MG TAB PO PRN (20:01)
[2021-07-02] MEDS ORDERED: bisacodyL 10 MG SUPP PR PRN (20:01)
--- NOTE | 2021-07-02 20:07 | Anesthesia Procedure Note ---
Date of Service July 02, 2021 Anesthesia Post Epidural Note Vital Signs Vital Signs: Temp Pulse Resp BP Pulse Ox 37.2 C 115 H 18 143/67 H 98 07/02/21 19:00 07/02/21 20:04 07/02/21 19:00 07/02/21 20:04 07/02/21 19:36 Pain Intensity Lower Abdomen: Pain Intensity: 2 Notes Mental Status: alert / awake / arousable and participated in evaluation Nausea / Vomiting: adequately controlled Pain: adequately controlled Airway Patency, RR, SpO2: stable & adequate BP & HR: stable & adequate Hydration State: stable & adequate Neuraxial Anesthesia: was administered and sensory block is resolving Anesthetic Complications: no major complications apparent and Pt Satisfied with anesthetic care Epidural: Removed without complications and With tip intact
[2021-07-02] MEDS: DOCUSATE SODIUM 100 MG CAP PO SCH (21:18)
[2021-07-03 06:43] LABS: Hematocrit (blood only) 31.9 % (37-47); Hemoglobin 10.4 g/dL (12.0-16.0); Mean Corpuscular Hemoglobin 31.2 pg (25-34); Mean Corpuscular Hgb Conc 32.6 g/dL (32-36); Mean Corpuscular Volume 95.8 fL (80-100); Mean Platelet Volume 11.8 fL (7.4-10.4); Platelet Count 164 K/uL (130-400); RDW Coefficient of Variation 14.5 % (11.5-14.5); RDW Standard Deviation 50.3 fL (36.4-46.3); Red Blood Count 3.33 M/uL (4.2-5.4); White Blood Count 10.66 K/uL (4.8-10.8)
[2021-07-03] MEDS: IBUPROFEN 600 MG TAB PO PRN ×2 (07:20→14:24)
[2021-07-03] MEDS ORDERED: PRENATAL VITAMIN 1 TAB PO SCH (08:00)
--- NOTE | 2021-07-03 08:02 | Obstetrical Progress Note ---
Date of Service July 03, 2021 Assessment & Plan Admission and Anticipated Discharge Date Admission Date: July 01, 2021 Subjective Patient is seen and examined. She feels well, no complaints. Desires d/c tonight Ambulating without dizziness Voiding without difficulty Tolerating regular diet with out N&V Bleeding is minimal No fever/ chills/ CP/ SOB/ N&V/ Leg pain Breast feeding without problems Vital Signs Temp Pulse Pulse Pulse Resp BP BP 07/03/21 07:24 86 114/73 07/03/21 04:18 99 H 119/57 L 07/03/21 04:15 36.6 C 99 H 18 07/03/21 03:26 37.3 C 105 H 18 109/55 L 07/02/21 23:11 115 H 117/73 07/02/21 23:10 37.7 C H 108 H 18 117/73 07/02/21 21:34 37.7 C H 105 H 18 116/70 07/02/21 21:19 105 H 114/68 07/02/21 21:04 98 H 18 106/62 07/02/21 20:49 107 H 120/69 07/02/21 20:34 103 H 16 121/80 07/02/21 20:19 104 H 16 121/62 07/02/21 20:04 115 H 18 143/67 H BP 07/03/21 07:24 07/03/21 04:18 07/03/21 04:15 119/57 L 07/03/21 03:26 07/02/21 23:11 07/02/21 23:10 07/02/21 21:34 07/02/21 21:19 07/02/21 21:04 07/02/21 20:49 07/02/21 20:34 07/02/21 20:19 07/02/21 20:04 Lab Results 07/01/21 07/03/21 Range/Units 13:47 06:16 WBC 9.52 10.66 (4.8-10.8) K/uL RBC 3.78 L 3.33 L (4.2-5.4) M/uL Hgb 12.0 10.4 L (12.0-16.0) g/dL Hct 36.5 L 31.9 L (37-47) % MCV 96.6 95.8 (80-100) fL MCH 31.7 31.2 (25-34) pg MCHC 32.9 32.6 (32-36) g/dL RDW Std Deviation 50.1 H 50.3 H (36.4-46.3) fL RDW Coeff of [place] 14.2 14.5 (11.5-14.5) % Plt Count 165 164 (130-400) K/uL MPV 11.7 H 11.8 H (7.4-10.4) fL PE: General: Alert, orientedx3, NAD Abd: soft, NT, fundus firm, below Umbilicus Perineum intact, Lochia rubra minimal Ext; NT, no edema AP: 31 yo s/p , ppd# 1 VSS Afebrile doing well Continue routine care All questions were answered D/C home tonight if baby will be discharged Discussed when to call Results & Data ([facility]) Vital Signs (Past 12 Hours) Vital Signs Temp Pulse Pulse Pulse Resp BP BP 07/03/21 07:24 86 114/73 07/03/21 04:18 99 H 119/57 L 07/03/21 04:15 36.6 C 99 H 18 07/03/21 03:26 37.3 C 105 H 18 109/55 L 07/02/21 23:11 115 H 117/73 07/02/21 23:10 37.7 C H 108 H 18 117/73 07/02/21 21:34 37.7 C H 105 H 18 116/70 07/02/21 21:19 105 H 114/68 07/02/21 21:04 98 H 18 106/62 07/02/21 20:49 107 H 120/69 07/02/21 20:34 103 H 16 121/80 07/02/21 20:19 104 H 16 121/62 07/02/21 20:04 115 H 18 143/67 H BP 07/03/21 07:24 07/03/21 04:18 07/03/21 04:15 119/57 L 07/03/21 03:26 07/02/21 23:11 07/02/21 23:10 07/02/21 21:34 07/02/21 21:19 07/02/21 21:04 07/02/21 20:49 07/02/21 20:34 07/02/21 20:19 07/02/21 20:04
[2021-07-03] MEDS ORDERED: CHOLECALCIFEROL 1,000 UNITS 25 MCG TAB PO SCH (09:00)
[2021-07-03] MEDS ORDERED: NON-FORMULARY MEDICATION (Prenatal Vit-Iron Fum-Folic Ac [Prenatal Vitamin] 27 mg iron- 0. PO SCH (09:00)
[2021-07-03] MEDS: DOCUSATE SODIUM 100 MG CAP PO SCH (09:08)
[2021-07-03] MEDS ORDERED: bisacodyL 5 MG TABEC PO SCH (20:00)
== END 2021-07-03 20:35 | disposition home or self-care (01) | DRG 807 ==
LOC: 4S1 12:41 → 4S2 12:44 → 4S1 12:52

== ENCOUNTER 2023-10-18 07:30 | Inpatient (IN) ==
[2023-10-18] MEDS ORDERED: ACETAMINOPHEN 500 MG TAB PO PRN (10:14)
[2023-10-18] MEDS ORDERED: LIDOCAINE 1% LOCAL 20 ML VIAL INFIL PRN (10:14)
[2023-10-18] MEDS ORDERED: CALCIUM CARBONATE 500 MG CHEWABLE TAB PO PRN (10:14)
[2023-10-18] MEDS: LACTATED RINGER'S 1,000 ML IV PRN (10:20)
--- NOTE | 2023-10-18 10:25 | History & Physical Report ---
Date of Service October 18, 2023 Assessment & Plan (1) GBS (group B Streptococcus carrier), +RV culture, currently : (2) Post-dates : (3) Post-term , 40-42 weeks of gestation: Plan: patient is an 33-year-old -0-0-2 at 41 weeks of gestation here today for scheduled induction of labor for postdates, Vital signs stable afebrile, heart rate reassuring, GBS positive, Cervix favorable, Plan to admit, labs, monitor, IV fluids, IV penicillin and oxytocin per protocol, Epidural for pain when patient desires. All questions were answered. Admission and Anticipated Discharge Date Admission Date: October 18, 2023 History of Present Illness Primary Care Provider: Lowell Severino DO patient is a 33-year-old -0-0-2 at 41 weeks of gestation who is here for scheduled induction of labor for postdates. She has no complaints. She denies contractions, leakage of fluid, vaginal bleeding. She reports good movements. Her has been uncomplicated except GBS positive. 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 Surgical History [place] teeth extracted H/O elbow surgery Family History Grandfather (Maternal) Diabetes Skin cancer Grandfather (Paternal) Skin cancer Social History Smoking Status: Never smoker Hx Alcohol Use: No Hx Substance Use: No Preferred Language: Setswana Communication Ability: Effective Hotel Receptionist Required: No Beliefs That Will Affect Care: None marital status: Current Living Situation: Spouse Other Information That Helps Us Care for You: No Feels Safe at Home: Yes Safety Concerns: Feels Safe At This Time Assistive Devices: None OB History FT 'sx2 in 2019 and 2021 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 History No h/o STD's Review of Systems as per Subjective / HPI Physical Exam Constitutional: WD/WN, vitals as above well developed, well nourished and comfortable Gastrointestinal (Abdomen): normal bowel sounds, soft, nontender, no hepatosplenomegaly Genitourinary: no vaginal lesions, no adnexal mass normal external appearance OB Exam Abdomen: + vertex Manual OB Exam: + cervical dilation 3 cm, + cervical effacement 20% and + station high (-3) OB Exam Monitor Tracing: + external uterine monitor used and + category I Results & Data Vital Signs (Past 12 Hours) Vital Signs Temp Pulse Resp BP 10/18/23 08:14 118 H 10/18/23 08:14 135/87 10/18/23 07:59 37.1 C 20 10/18/23 07:53 144 H 133/87 10/18/23 07:52 20 10/18/23 07:52 37.1 C 20 (2) Post-dates Post-term type: 40-42 weeks gestation Qualified Code(s): O48.0 - Post-term
[2023-10-18] MEDS: OXYTOCIN 30 UNITS/NSS 30 UNITS/500 ML BAG IV PRN ×2 (10:34→19:45)
[2023-10-18 10:53] LABS: Hematocrit (blood only) 35.2 % (37.0-47.0); Hemoglobin 11.7 g/dl (12.0-16.0); Mean Corpuscular Hgb Conc 33.2 g/dL (32.0-36.0); Mean Corpuscular Volume 93.1 fL (80.0-100.0); Mean Platelet Volume 12.2 fL (9.4-12.4); Platelet Count 198 K/uL (130-400); RDW Coefficient of Variation 13.5 % (11.5-14.5); RDW Standard Deviation 46.1 fL (36.4-46.3); Red Blood Count 3.78 M/uL (4.20-5.40); White Blood Count 8.66 K/ul (4.8-10.8)
[2023-10-18 11:03] LABS: Albumin Globulin Ratio 1.1 (0.9-2); Albumin Level 3.4 gm/dl (3.4-5.0); Bilirubin,Total 0.3 mg/dl (0.2-1.0); Calcium 8.5 mg/dl (8.6-10.3); Creatinine Clr Calc Pharmacy 152.3 ml/min; Est GFR (African American) 146.4 ml/min; Est GFR (Non-African American) 126.3 ml/min; Globulin 3.2 gm/dl (2.5-4.0); Total Protein 6.6 gm/dl (6.0-8.3)
[2023-10-18] MEDS: PENICILLIN GK 6 MU in DEXTROSE 5% 250 ML IV STA (11:12)
[2023-10-18] MEDS: PENICILLIN GK 3 MU in DEXTROSE 5% 100 ML IV PRN (14:48)
--- NOTE | 2023-10-18 15:34 | Obstetrical Progress Note ---
Date of Service October 18, 2023 Assessment & Plan Admission and Anticipated Discharge Date Admission Date: October 18, 2023 Subjective Patient is related. She has been on Pitocin since this morning. Feels co ntractions as mild tightening denies any pain no discomfort. second bag of penicillin is being given. heart rate category 1, [place] showing contractions every 2 to 3 minutes, Vaginal exam, cervix 3 to 4 cm dilated, 50% effaced, -2, AROM, clear fluid obtained, Continue monitor closely, Epidural when patient desires. Results & Data Vital Signs (Past 12 Hours) Vital Signs Temp Pulse Resp BP 10/18/23 14:46 93 H 10/18/23 14:46 125/71 10/18/23 13:50 77 10/18/23 13:50 120/77 10/18/23 12:45 88 10/18/23 12:45 126/82 10/18/23 11:58 80 10/18/23 11:58 128/81 10/18/23 10:44 20 10/18/23 10:44 36.6 C 20 10/18/23 10:44 97 H 10/18/23 10:44 127/80 10/18/23 08:14 118 H 10/18/23 08:14 135/87 10/18/23 07:59 37.1 C 20 10/18/23 07:53 144 H 133/87 10/18/23 07:52 20 10/18/23 07:52 37.1 C 20
--- OUTSIDE RECORDS SUMMARY | 2023-10-18 15:49 | External Medical Summary | Summary of Care ---
Author Name Unknown Organization [facility] Address [address] [place] [address] Phone [phone] Care Team Providers Care Child Welfare Counselor Name Role Phone Juan CarlosLowell joseph Primary Care Provider [phone] Reason for Visit * Reason Comments Return Visit Encounter Details Date Type Department Care Team (Late st Contact Info) Description 10/03/2023 8:15 AM EDT Office Visit Gynecology/Obstetri [facility] [address] [facility] [place] [address] Santa Ortega CNM [address] [place] [address] Nurse Francois [facility] Beginnings Return [facility] [address] Normal intrauterine , antepartum*; Late care Allergies No known active allergiesdocumented as of this encounter (statuses as of 10/03/2023) Medications Medication Sig Dispensed Refills Start Date End Date Status Vit-Fe Fumarate-FA (DAVID-RUL VITAMINS) 28-0.8 MG TABS Take by mouth. Active Triamcinolone Acetonide 0.1 % External Ointment (Aristocort) Apply topically to affected area 2 times a day. Apply to affected area 1-2 times a day 30 g 08/14/2020 Active valACYclovir HCl 1 GM Oral Tablet (Valtrex)Indications:He rpetic gingivostomatitis take 2 tablets by mouth every 12 hours FOR 1 DAY FOR COLD SORES 8 Tablet 2 07/17/2023 Active Vitamin D3 Complete Oral Tablet Take by mouth. Active Azelaic Acid 15 % External Gel (Finacea)Indications:Ac ne vulgaris After skin is thoroughly washed and patted dry, gently but thoroughly massage a thin film of azelaic acid gel into the affected area twice daily 50 g 3 07/18/2023 Active Breast PumpIndications:Breast feeding status of mother MONTY 10/11/23, Z39.1, use as directed 1 Each 09/04/2023 Active documented as of this encounter (statuses as of 10/03/2023) Active Problems Problem Noted Date Diagnosed Date Normal 08/28/2023 Late care 08/28/2023 Overview: Started at 16 wks Health counseling 10/03/2022 Overview: Problem Action Taken Date entered Entered by Date resolved Need for food assistance referred to [facility] and local [facility] 10/03/2022 Viry Brown RN 10/03/2022 Problem Action Taken Date entered Entered by Date resolved Current needs or questions Patient denies having any current needs or questions 10/03/2022 Viry Brown RN 10/03/2022 Problem Action Taken Date entered Entered by Date resolved Late care Maternal Consult 04/28/2023 Viry Brown RN 04/28/2023 Problem Action Taken Date entered Entered by Date resolved Current needs or questions Patient denies having any current needs or questions 04/28/2023 Viry Brown RN 04/28/2023 Problem Action Taken Date entered Entered by Date resolved Current needs or questions Patient denies having any current needs or questions 06/26/2023 Viry Brown RN 06/26/2023 INFORMATION 05/27/2019 Overview: Daughter in law of Dr Fernandez( anesthesia) History of squamous cell carcinoma 08/07/2014 Multiple pigmented nevi 08/07/2014 Herpetic gingivostomatitis 02/15/2011 Estimated Date of Delivery Comme nts Yes 10/11/2023 Based on last me nstrual period of 01/04/2023 (Exact Date) documented as of this encounter (statuses as of 10/03/2023) Resolved Problems Problem Noted Date Diagnosed Date Resolved Date Supervision of normal 10/03/2022 08/28/2023 Carrier of group B Streptococcus 06/16/2021 08/28/2023 Antepartum anemia complicating 04/09/2021 08/28/2023 Overview: Taking protein and supplements though manager sharepoint rather than Vitron C. Supervision of other normal 12/23/2020 08/28/2023 Group beta Strep positive 05/24/2019 Supervision of normal first , antepartum 12/24/2018 12/23/2020 LSC (lichen simplex chronicus) 10/04/2012 11/01/2018 Other acne 02/15/2011 11/01/2018 documented as of this encounter (statuses as of 10/03/2023) Immunizations Name Administration Dates Next Due HPV Vaccine, 4-Valent 08/10/2014,02/07/2014 PPD 08/06/2014 Seasonal Influenza, Split, IIV3, With Preserve, Inj 02/15/2011 TDAP (age 10 and older)(Boostrix) 02/07/2014 documented as of this encounter Social History Tobacco Use Types Packs/Day Years Used Date Smoking Tobacco: Never Smokeless Tobacco: Never Alcohol Use Standard Drinks/Week Comments Not Currently 0 (1 standard drink = 0.6 oz pur e alcohol) rarely PHQ-2 Answer Date Recorded PHQ Adult Total Score 0 05/28/2023 Hunger Vital Sign Answer Date Recorded Within the past 12 months, y ou worried that your food would run out before you got the money to buy more. Never true 05/28/19 24 Within the past 12 months, t he food you bought just didn't last and you didn't have money to get more. Never true 05/28/2023 [place] Depression Scale Answer Date Recorded [place] Depression Scale Total 0 08/28/2023 The thought of harming myself has occurred to me . Never 08/28/2023 Estimated Date of Delivery Comme nts Yes 10/11/2023 Based on last me nstrual period of 01/04/2023 (Exact Date) Sex and Gender Information Value Date Recorded Sex Assigned at Female 10/03/2022 3:18 PM EDT Gender Identity Female 10/03/2022 3:18 PM EDT Sexual Orientation Straight 10/03/2022 3: 18 PM EDT Job Start Date Occupation Industry Not on file Not on file Not on file documented as of this encounter Last Filed Vital Signs Vital Sign Reading Time Taken Comments Blood Pressure 108/62 10/03/2023 8:24 AM EDT Pulse - - Temperature - - Respiratory Rate - - Oxygen Saturation - - Inhaled Oxygen Concentration - - Weight 72.6 kg (160 lb) 10/03/2023 8:24 AM EDT Height - - Body Mass Index 28.34 09/27/2023 7:58 AM EDT documented in this encounter Progress Notes * Karen Lindsay LPN - 10/03/2023 8:24 AM EDT Pt is currently 38w6d with an Estimated Date of Delivery: 10/11/23 - * Santa Ortega CNM - 10/03/2023 8:15 AM EDT Rea Fernandez is a 33 year old female here for her routine OB appointment at 38w6d Her Estimated Date of Delivery: 10/11/23 REVIEW OF SYSTEMS: She affirms movement. Denies vaginal bleeding, LOF, contractions, N/V, headaches Reports occasional sharp groin pain PHYSICAL EXAM: Filed Vitals: 10/03/23 0824 BP: 108/62 Weight: 72.6 kg (160 lb) +FHT 140s Fundal height 38 ASSESSMENT/PLAN: 1. Late care 2. Normal intrauterine , antepartum - labor precautions and kick counts reviewed - RTO in 1 week Santa Ortega CNM documented in this encounter Plan of Treatment Upcoming Encounters Date Type Department Care Team (Late st Contact Info) Description 10/10/2023 8:15 AM EDT Office Visit Gynecology/Obstetrics [facility] Parrish [address] [facility] [place] [address] Daphne Valdivia CRNP [address] [place] [address] Nurse Francois [facility] Return John [address] [place] [address] 06/28/2024 9:00 AM EST Office Visit Family Practice [facility] [place] [address] [facility] [place] [address] Lowell Severino DO [address] [facility] [place] [address] 08/05/2024 8:15 AM EDT Office Visit Dermatology [facility] [place] [address] [place] [address] Abraham Mcnulty MD [address] [facility] [place] [address] Health Maintenance Due Date Last Done Comments GARDASIL-HPV IMMUNIZATION SERIES (3 - 3-dose series) 11/02/2014 08/10/2014, 02/07/2014 HPV/Co-Test 2019 COVID-19 Vaccine ( season) 2023 Influenza Vaccine (FLU shot) (Season Ended) 2024 02/15/2011 DTaP,Tdap,and Td Vaccines (7 - Td or Tdap) 02/08/2024 02/07/2014, 02/09/1999, 07/17/1997, Additional history exists Depression Screening 05/28/2024 05/28/2023 Cervical Cancer Screening 08/12/2024 Pap Smear 08/12/2024 08/12/2021, 12/14, 05/07/2014, Additional history exists Hepatitis B Completed 11/17/1995, 09/1995, 04/14/1995 MENINGOCOCCAL (MENACTRA/MENVEO) Aged Out No longer eligible based on patient's age to complete this topic Pneumococcal Vaccine: Pediatrics (0 to 5 Years) and At-Risk Patients (6 to 64 Years) Aged Out No longer eligible based on patient's age to complete this topic documented as of this encounter Medical Devices Not on filedocumented as of this encounter Visit Diagnoses Diagnosis Normal intrauterine , antepartum- Primary Late care Insufficient care documented in this encounter Care Teams Child Welfare Counselor Relationship Specialty Start Date End Date Lowell Severino DO [address] [place] [address] PCP - General Family Medicine 05/20/19 documented as of this encounter
--- OUTSIDE RECORDS SUMMARY | 2023-10-18 15:49 | External Medical Summary | Summary of Care ---
Author Name Unknown Organization [facility] Address [address] [place] [address] Phone [phone] Care Team Providers Care Hand Engraver Name Role Phone Juan CarlosLowell joseph Primary Care Provider Encounter Details Date Type Department Care Team (Late st Contact Info) Description 09/25/2023 Telephone Gynecology/Obstetrics [facility] [address] [facility] [place] [address] Casandra Flowers PA-C [facility] [place] [address] Allergies No known active allergiesdocumented as of this encounter (statuses as of 09/25/2023) Medications Medication Sig Dispensed Refills Start Date End Date Status Vit-Fe Fumarate-FA (DAVID-RUL VITAMINS) 28-0.8 MG TABS Take by mouth. 0 Active Triamcinolone Acetonide 0.1 % External Ointment (Aristocort) Apply topically to affected area 2 times a day. Apply to affected area 1-2 times a day 30 g 0 08/14/2020 Active valACYclovir HCl 1 GM Oral Tablet (Valtrex)Indications:He rpetic gingivostomatitis take 2 tablets by mouth every 12 hours FOR 1 DAY FOR COLD SORES 8 Tablet 2 07/17/2023 Active Vitamin D3 Complete Oral Tablet Take by mouth. 0 Active Azelaic Acid 15 % External Gel (Finacea)Indications:Ac ne vulgaris After skin is thoroughly washed and patted dry, gently but thoroughly massage a thin film of azelaic acid gel into the affected area twice daily 50 g 3 07/18/2023 Active Breast PumpIndications:Breast feeding status of mother MONTY 10/11/23, Z39.1, use as directed 1 Each 0 09/04/2023 Active documented as of this encounter (statuses as of 09/25/2023) Active Problems Problem Noted Date Diagnosed Date Normal 08/28/2023 Late care 08/28/2023 Overview: Started at 16 wks Health counseling 10/03/2022 Overview: Problem Action Taken Date entered Entered by Date resolved Need for food assistance referred to [facility] and local food [employer] 10/03/2022 Viry Bronw RN 10/03/2022 Problem Action Taken Date entered [...] as of this encounter (statuses as of 09/25/2023) Resolved Problems Problem Noted Date Diagnosed Date Resolved Date Supervision of normal 10/03/2022 08/28/2023 Carrier of group B Streptococcus 06/16/2021 08/28/2023 Antepartum anemia complicating 04/09/2021 08/28/2023 Overview: Taking protein and supplements though grape pruner rather than Vitron C. Supervision of other normal 12/23/2020 08/28/2023 Group beta Strep positive 05/24/2019 Supervision of normal first , antepartum 12/24/2018 12/23/2020 LSC (lichen simplex chronicus) 10/04/2012 11/01/2018 Other acne 02/15/2011 11/01/2018 documented as of this encounter (statuses as of 09/25/2023) Immunizations Name Administration Dates Next Due HPV [...] money to get more. Never true 05/28/2023 [place] Depression Scale Answer Date Recorded [place] Depression Scale Total 0 08/28/2023 The thought [...] on file documented as of this encounter Miscellaneous Notes * Telephone Encounter - Karen Lindsay LPN - 09/25/2023 8:27 AM EDT ----- Message from Casandra Flowers PA-C sent at 09/25/2023 7:56 AM EDT ----- Please let patient know her GBS culture was positive. Thanks! Casandra Flowers PA-C documented in this encounter Plan of Treatment Upcoming Encounters Date Type Department Care Team (Late st Contact Info) Description 09/27/2023 8:00 AM EDT Office Visit Gynecology/Obstetrics [facility] [address] [place] [address] Tiffanie Glaser CRNP [address] [place] [address] Nurse Francois [facility] Return John [address] [place] [address] 10/03/2023 8:15 AM EDT Office Visit Gynecology/Obstetrics Murphy [facility] [address] [place] [address] Santa Ortega, PABLO [address] [place], [place] [address] [address] Nurse Francois [facility] Return John [address] [place] [address] 10/10/2023 8:15 AM EDT Office Visit Gynecology/Obstetrics Murphy [facility] [address] [place] [address] Daphne Valdivia CRNP [address] [place] [address] Nurse Francois [facility] Return John 132 [place] [address] 06/28/2024 9:00 AM EST Office Visit Family Practice [facility] 200 [facility] [place] [address] Lowell Severino DO [address] [facility] [place] [address] 08/05/2024 8:15 AM EDT Office Visit Dermatology [facility] [address] [facility] [place] [address] Abraham Mcnulty MD 200 [facility] [place] [address] Health Maintenance Due Date Last Done Comments [...] Not on filedocumented as of this encounter Care Teams Hand Engraver Relationship Specialty Start Date End Date Lowell Severino DO [address] [place] [address] PCP - General Family Medicine 05/20/19 documented as of this encounter
--- OUTSIDE RECORDS SUMMARY | 2023-10-18 15:49 | External Medical Summary | Summary of Care ---
Author Name Unknown Organization [facility] Address [address] [place] [address] Phone [phone] Care Team Providers Care Real Estate Sales Manager Name Role Phone SusanLowell richey Primary Care Provider Reason for Visit * Reason Comments Return Visit Encounter Details Date Type Department Care Team (Late st Contact Info) Description 09/27/2023 8:00 AM EDT Office Visit Gynecology/Obstetri cs [facility] [address] [place] [address] Tiffanie Glaser CRNP [address] [place] [address] Nurse Francois Healthy Beginnings Return [facility] [address] [place] [address] Normal in third trimester*; Late care Allergies No known active allergiesdocumented as of this encounter (statuses as of 09/27/2023) Medications Medication Sig Dispensed Refills Start Date [...] as of this encounter (statuses as of 09/27/2023) Active Problems Problem Noted Date Diagnosed Date Normal 08/28/2023 Late care 08/28/2023 Overview: Started at 16 wks Health counseling 10/03/2022 Overview: Problem Action Taken Date entered Entered by Date resolved Need for food assistance referred to [facility] and local [employer] 10/03/2022 Viry Brown RN 10/03/2022 Problem Action [...] as of this encounter (statuses as of 09/27/2023) Resolved Problems Problem Noted Date Diagnosed Date Resolved Date Supervision of normal 10/03/2022 08/28/2023 Carrier of group B Streptococcus 06/16/2021 08/28/2023 Antepartum anemia complicating 04/09/2021 08/28/2023 Overview: Taking protein and supplements though journal clerk rather than Vitron C. Supervision of other normal 12/23/2020 08/28/2023 Group beta Strep positive 05/24/2019 Supervision of normal first , antepartum 12/24/2018 12/23/2020 LSC (lichen simplex chronicus) 10/04/2012 11/01/2018 Other acne 02/15/2011 11/01/2018 documented as of this encounter (statuses as of 09/27/2023) Immunizations Name Administration Dates Next Due HPV [...] money to get more. Never true 05/28/2023 [place] Depression Scale Answer Date Recorded [place] Depression Scale Total 0 08/28/2023 The thought [...] Sign Reading Time Taken Comments Blood Pressure 118/68 09/27/2023 7:58 AM EDT Pulse - - Temperature - - Respiratory Rate - - Oxygen Saturation - - Inhaled Oxygen Concentration - - Weight 72.6 kg (160 lb) 09/27/2023 7:58 AM EDT Height 160 cm (5' 3") 09/27/2023 7:58 AM EDT Body Mass Index 28.34 09/27/2023 7:58 AM EDT documented in this encounter Progress Notes * Tiffanie Glaser CRNP - 09/27/2023 8:09 AM EDT 38w No concerns. Baby is active. Denies contractions, bleeding, LOF. Swelling has gone away, happy about that. LEA Silver * Roxie Skelton LPN - 09/27/2023 7:58 AM EDT 38w0d Denies any concerns documented in this encounter Plan of Treatment Upcoming Encounters Date Type Department Care Team (Late st Contact Info) Description 10/03/2023 8:15 AM EDT Office Visit Gynecology/Obstetrics [facility] [address] [place] [address] Santa Ortega CNM [address] [place] [address] [place] [address] Nurse Francois [facility] Return John [address] [place] [address] 10/10/2023 8:15 AM EDT Office Visit Gynecology/Obstetrics Murphy Parrish [address] [place] [address] BackerDaphne CRNP [address] [place] [address] Nurse Francois [facility] Return John [address] [place] [address] 06/28/2024 9:00 AM EST Office Visit Family Practice [facility] [address] [place] [address] Lowell Severino DO 200 [facility] [place] [address] 08/05/2024 8:15 AM EDT Office Visit Dermatology [facility] [address] [place] [address] Abraham Mcnulty MD 200 [facility] [place], [place] [address] Health Maintenance Due Date Last Done Comments [...] of this encounter Visit Diagnoses Diagnosis Normal in third trimester- Primary Late care Insufficient care documented in this encounter Care Teams Real Estate Sales Manager Relationship Specialty Start Date End Date Lowell Severino DO [address] [place] [address] PCP - General Family Medicine 05/20/19 documented as of this encounter
--- OUTSIDE RECORDS SUMMARY | 2023-10-18 15:49 | External Medical Summary | Summary of Care ---
Author Name Unknown Organization [facility] Address [address] [place] [address] Phone [phone] Care Team Providers Care Motor Vehicle Lecturer Name Role Phone Juan CarlosLowell joseph Primary Care Provider [phone] Reason for Visit * Reason Comments Return Visit Encounter Details Date Type Department Care Team (Late st Contact Info) Description 09/21/2023 9:15 AM EDT [facility] [address] [facility] [place] [address] Casandra Flowers PA-C [address] [place] [address] [place] [address] Nurse Francois Healthy [facility]nings Return [facility] [address] [facility] [place] [address] Normal in third trimester*; Late care Allergies No known active allergiesdocumented as of this encounter (statuses as of 09/21/2023) Medications Medication Sig Dispensed Refills Start Date [...] as of this encounter (statuses as of 09/21/2023) Active Problems Problem Noted Date Diagnosed Date Normal 08/28/2023 Late care 08/28/2023 Overview: Started at 16 wks Health counseling 10/03/2022 Overview: Problem Action Taken Date entered Entered by Date resolved Need for food assistance referred to [facility] and local food [employer] 10/03/2022 Viry Brown RN 10/03/2022 Problem Action [...] as of this encounter (statuses as of 09/21/2023) Resolved Problems Problem Noted Date Diagnosed Date Resolved Date Supervision of normal 10/03/2022 08/28/2023 Carrier of group B Streptococcus 06/16/2021 08/28/2023 Antepartum anemia complicating 04/09/2021 08/28/2023 Overview: Taking protein and supplements though supervisor pigment making rather than Vitron C. Supervision of other normal 12/23/2020 08/28/2023 Group beta Strep positive 05/24/2019 Supervision of normal first , antepartum 12/24/2018 12/23/2020 LSC (lichen simplex chronicus) 10/04/2012 11/01/2018 Other acne 02/15/2011 11/01/2018 documented as of this encounter (statuses as of 09/21/2023) Immunizations Name Administration Dates Next Due DTaP Dipth/Tet/Acell Pertussis (Infanrix), Peds 02/09/1999,07/17/1997,06/19/1995, 995,09/09/1994 HIB PRP-T, 4 dose (ActHib) 04/14/1995 HPV Vaccine, 4-Valent 08/10/2014,02/07/2014 Hepatitis B, 0-19 yrs 11/17/1995,06/19/1995,1205/1994 MMR - Measles/Mumps/Rubella Vaccine 07/17/1997,0 09/09/1994 OPV - Polio Virus Vaccine (Oral) 998,06/19/1995,04/14/1995, 995 PPD 08/06/2014,06/20/2001 Seasonal Influenza, Split, I IV3, With Preserve, Inj 02/15/2011 TDAP (age 10 [...] money to get more. Never true 05/28/2023 [place] Depression Scale Answer Date Recorded [place] Depression Scale Total 0 08/28/2023 The thought [...] Sign Reading Time Taken Comments Blood Pressure 110/64 09/21/2023 9:11 AM EDT Pulse - - Temperature - - Respiratory Rate - - Oxygen Saturation - - Inhaled Oxygen Concentration - - Weight 73 kg (161 lb) 09/21/2023 9:11 AM EDT Height 160 cm (5' 3") 09/21/2023 9:11 AM EDT Body Mass Index 28.52 09/21/2023 9:11 AM EDT documented in this encounter Progress Notes * Casandra Flowers PA-C - 09/21/2023 9:14 AM EDT Rea Fernandez is a 33 year old female here for her routine OB appointment at 37w1d Her Estimated Date of Delivery: 10/11/23 REVIEW OF SYSTEMS She affirms movement. Denies vaginal bleeding, LOF, contractions, N/V, headaches, vision changes, chest pain, deep calf pain/swelling, RUQ pain. PHYSICAL EXAM Filed Vitals: 09/21/23 0911 BP: 110/64 Weight: 73 kg (161 lb) Height: 1.6 m (5' 3") +FHT 140s Fundal height 35 cm. Patient declines U/S at this time. GBS swab collected. Payer Specialist Documentation Patient offered citizen participation specialist and accepted. Name of citizen participation specialist: Chary Diop LPN. ASSESSMENT/PLAN Normal in third trimester (Primary) - GROUP B STREP CULTURE/PCR; Future; Expected date: 09/21/2023 Late care Supervision of - recommended Tdap vaccine. Patient declines. - GBS swab collected today - labor precautions and kick counts reviewed RTO in 1 week Casandra Flowers PA-C 09/21/2023 * Roxie Skelton LPN - 09/21/2023 9:11 AM EDT 37w1d documented in this encounter Plan of Treatment Upcoming Encounters Date Type Department Care Team (Late st Contact Info) Description 09/27/2023 8:00 AM EDT Office Visit Gynecology/Obstetrics [facility] Parrish [address] [place] [address] Tiffanie Glaser CRNP [address] [place] [address] Nurse Francois [facility] Return John [address] [place] [address] 10/03/2023 8:15 AM EDT Office Visit Gynecology/Obstetrics Murphy Parrish [address] [place] [address] Santa Ortega CNM [address] [place] [address] [place] [address] Nurse Garland Parrish Beginnings Return John [address] [place] [address] 10/10/2023 8:15 AM EDT Office Visit Gynecology/Obstetrics [facility] Parrish [address] [facility] [address] Daphne Valdivia CRNP [address] [facility] [place] [address] Nurse Francois [facility] Return [facility] [place] [address] 06/28/2024 9:00 AM EST Office Visit Family Practice [facility] [address] [place] [address] Lowell Severino DO 200 [facility] [place] [address] 08/05/2024 8:15 AM EDT Office Visit Dermatology [facility] [address] [place] [address] Abraham Mcnulty MD 200 [place] [address] Pending Results Name Type Priority Associated Diagnoses Date /Time GROUP B STREP CULTURE/PCR Lab Routine Normal in third trimester 09/21/2023 10:15 AM EDT Scheduled Orders Name Type Priority Associated Diagnoses Orde r Schedule GROUP B STREP CULTURE/PCR Lab Routine Normal in third trimester Expected: 09/21/2023, Expires: 09/20/2024 Health Maintenance Due Date Last Done Comments [...] care documented in this encounter Care Teams Motor Vehicle Lecturer Relationship Specialty Start Date End Date Lowell Severino DO [address] [place] [address] PCP - General Family Medicine 05/20/19 documented as of this encounter
--- OUTSIDE RECORDS SUMMARY | 2023-10-18 15:49 | External Medical Summary | Summary of Care ---
Author Name Unknown Organization [facility] Address [address] [place] [address] Phone [phone] Care Team Providers Care Clinical Safety Manager Name Role Phone Juan CarlosLowell joseph Primary Care Provider [phone] Reason for Visit * Reason Comments Return Visit Encounter Details Date Type Department Care Team (Late st Contact Info) Description 09/21/2023 9:15 AM EDT [facility] [address] [facility] [place] [address] Casandra Flowers PA-C [address] [place] [address] [place] [address] Nurse Francois [facility]nings Return [facility] [place] [address] Normal in third trimester*; Late care Allergies [...] resolved Need for food assistance referred to [facility] and local food velez 10/03/2022 Viry Brown [...] 08/28/2023 Overview: Taking protein and supplements though aircraft motor mechanic rather than Vitron C. Supervision of other normal 12/23/2020 08/28/2023 Group beta Strep positive 05/24/2019 Supervision of normal first , antepartum 12/24/2018 12/23/2020 LSC (lichen simplex chronicus) 10/04/2012 11/01/2018 Other acne 02/15/2011 11/01/2018 documented as of this encounter (statuses as of 09/21/2023) Immunizations Name Administration Dates Next Due HPV [...] money to get more. Never true 05/28/2023 [place] Depression Scale Answer Date Recorded [place] Depression Scale Total 0 08/28/2023 The thought [...] U/S at this time. GBS swab collected. Funding Analyst Documentation Patient offered pyridine recovery operator and accepted. Name of pyridine recovery operator: Chary Diop LPN. ASSESSMENT/PLAN Normal in third [...] Visit Gynecology/Obstetrics [facility] [address] [place] [address] Tiffanie Glaser CRNP [address] [place] [address] Nurse Francois [facility] Return John [address] [place] [address] 10/03/2023 8:15 AM EDT Office Visit Gynecology/Obstetrics [facility] [address] [place] [address] [place], [address] [place] [address] Nurse Francois [facility] Return John [address] [place] [address] 10/10/2023 8:15 AM EDT Office Visit Gynecology/Obstetrics [facility] [address] [place] [address] Daphne Valdivia CRNP [address] [place] [address] Nurse Francois [facility] Return John [address] [place] [address] 06/28/2024 9:00 AM EST Office Visit [address] [place], [place] [address] Lowell Severino DO [address] [facility] [place], [place] [address] 08/05/2024 8:15 AM EDT Office Visit Dermatology [facility] [place], [place] [address] Abraham Mcnulty MD [address] [facility] [place], [place] [address] Scheduled Orders Name Type Priority Associated Diagnoses [...] care documented in this encounter Care Teams Clinical Safety Manager Relationship Specialty Start Date End Date Lowell Severino DO [address] [place] [address] PCP - General Family Medicine 05/20/19 documented as of this encounter
--- OUTSIDE RECORDS SUMMARY | 2023-10-18 15:49 | External Medical Summary | Summary of Care ---
Author Name Unknown Organization [facility] Address [address] [place] [address] Phone [phone] Care Team Providers Care Java Tech Name Role Phone Juan CarlosLowell joseph Primary Care Provider Reason for Visit * Reason Comments Return Visit Encounter Details Date Type Department Care Team (Late st Contact Info) Description 10/10/2023 8:15 AM EDT Office Visit Gynecology/Obstetri [facility] [address] [facility] [place] [address] Daphne Valdivia CRNP [address] [facility] [place] [address] Nurse Francois [facility]nings Return [facility] [address] [facility] [address] Normal in third trimester*; Late care; GBS (group B Streptococcus carrier), +RV culture, currently Allergies No known active allergiesdocumented as of this encounter (statuses as of 10/10/2023) Medications Medication Sig Dispensed Refills Start Date [...] as of this encounter (statuses as of 10/10/2023) Active Problems Problem Noted Date Diagnosed Date GBS (group B Streptococcus c arrier), +RV culture, currently 10/10/2023 Normal 08/28/2023 Late care 08/28/2023 Overview: Started at 16 wks Health counseling 10/03/2022 Overview: Problem Action Taken Date entered Entered by Date resolved Need for food assistance referred to [facility] and local food velez 10/03/2022 Viry Brown [...] as of this encounter (statuses as of 10/10/2023) Resolved Problems Problem Noted Date Diagnosed Date Resolved Date Supervision of normal 10/03/2022 08/28/2023 Carrier of group B Streptococcus 06/16/2021 08/28/2023 Antepartum anemia complicating 04/09/2021 08/28/2023 Overview: Taking protein and supplements though care information associate rather than Vitron C. Supervision of other normal 12/23/2020 08/28/2023 Group beta Strep positive 05/24/2019 Supervision of normal first , antepartum 12/24/2018 12/23/2020 LSC (lichen simplex chronicus) 10/04/2012 11/01/2018 Other acne 02/15/2011 11/01/2018 documented as of this encounter (statuses as of 10/10/2023) Immunizations Name Administration Dates Next Due HPV [...] money to get more. Never true 05/28/2023 [place] Depression Scale Answer Date Recorded [place] Depression Scale Total 0 08/28/2023 The thought [...] Sign Reading Time Taken Comments Blood Pressure 116/68 10/10/2023 8:08 AM EDT Pulse - - Temperature - - Respiratory Rate - - Oxygen Saturation - - Inhaled Oxygen Concentration - - Weight 73.5 kg (162 lb) 10/10/2023 8:08 AM EDT Height - - Body Mass Index 28.7 09/27/2023 7:58 AM EDT documented in this encounter Progress Notes * Daphne Valdivia CRNP - 10/10/2023 8:18 AM EDT 39w6d Post dates IOL scheduled. Baby is active. No leaking, bleeding, ctx. 1 week return LEA Cardona * Chary Diop LPN - 10/10/2023 8:08 AM EDT 39w6d Denies vaginal bleeding/rom + movement No new concerns documented in this encounter Plan of Treatment Upcoming Encounters Date Type Department Care Team (Late st Contact Info) Description 06/28/2024 9:00 AM EST Office Visit Family Practice [facility] [place] [address] Lowell Severino, [address] [facility] [place] [address] 08/05/2024 8:15 AM EDT Office Visit Dermatology [facility] [address] [place] [address] Abraham Mcnulty MD [address] [place] [address] Health Maintenance Due Date Last Done Comments [...] third trimester- Primary Late care Insufficient care GBS (group B Streptococcus carrier), +RV culture, currently Supervision of other high-risk documented in this encounter Care Teams Java Tech Relationship Specialty Start Date End Date Lowell Severino DO [address] [place] [address] PCP - General Family Medicine 05/20/19 documented as of this encounter
--- OUTSIDE RECORDS SUMMARY | 2023-10-18 15:50 | External Medical Summary | Summary of Care ---
Author Name Unknown Organization [facility] Address [address] [place] [address] Phone [phone] Care Team Providers Care Tail Puller Name Role Phone SusanLowell richey Belinda BRYAN Primary Care Provider Reason for Visit * Reason Comments Return Visit Encounter Details Date Type Department Care Team (Late st Contact Info) Description 09/12/2023 8:00 AM EDT Office Visit Gynecology/Obstetri [facility] [address] [place] [address] Tiffanie Glaser CRNP [address] [place] [address] Nurse Francois [facility] Return [facility] [address] [facility] [place] [address] Normal in third trimester*; Late care Allergies No known active allergiesdocumented as of this encounter (statuses as of 09/19/2023) Medications Medication Sig Dispensed Refills Start Date [...] as of this encounter (statuses as of 09/19/2023) Active Problems Problem Noted Date Diagnosed Date Normal 08/28/2023 Late care 08/28/2023 Overview: Started at 16 wks Health counseling 10/03/2022 Overview: Problem Action Taken Date entered Entered by Date resolved Need for food assistance referred to [facility] and local [employer] 10/03/2022 Viry Brown RN 10/03/2022 Problem Action [...] as of this encounter (statuses as of 09/19/2023) Resolved Problems Problem Noted Date Diagnosed Date Resolved Date Supervision of normal 10/03/2022 08/28/2023 Carrier of group B Streptococcus 06/16/2021 08/28/2023 Antepartum anemia complicating 04/09/2021 08/28/2023 Overview: Taking protein and supplements though ct mri technologist rather than Vitron C. Supervision of other normal 12/23/2020 08/28/2023 Group beta Strep positive 05/24/2019 Supervision of normal first , antepartum 12/24/2018 12/23/2020 LSC (lichen simplex chronicus) 10/04/2012 11/01/2018 Other acne 02/15/2011 11/01/2018 documented as of this encounter (statuses as of 09/19/2023) Immunizations Name Administration Dates Next Due DTaP Dipth/Tet/Acell Pertussis (Infanrix), Peds 02/09/1999,07/17/1997,06/19/1995, 995,09/09/1994 HIB PRP-T, 4 dose (ActHib) 04/14/1995 HPV Vaccine, 4-Valent 08/10/2014,02/07/2014 Hepatitis B, 0-19 yrs 11/17/1995,06/19/1995,12/05/1994 MMR - Measles/Mumps/Rubella Vaccine 07/17/1997,0 09/09/1994 OPV [...] money to buy more. Never true 05/28/19 Within the past 12 months, t he food you bought just didn't last and you didn't have money to get more. Never true 05/28/2023 [place] Depression Scale Answer Date Recorded [place] Depression Scale Total 0 08/28/2023 The thought [...] Sign Reading Time Taken Comments Blood Pressure 114/74 09/12/2023 8:05 AM EDT Pulse - - Temperature - - Respiratory Rate - - Oxygen Saturation - - Inhaled Oxygen Concentration - - Weight 71.2 kg (157 lb) 09/12/2023 8:05 AM EDT Height 160 cm (5' 3") 09/12/2023 8:05 AM EDT Body Mass Index 27.81 09/12/2023 8:05 AM EDT documented in this encounter Progress Notes * Tiffanie Glaser CRNP - 09/12/2023 8:20 AM EDT 35w6d Only concern is a leaky bladder. Discussed that unfortunately not a lot can be done at this stage of . She states she does not drink much because she then has to go to the bathroom more frequently. Baby is active. No contractions, bleeding, LOF. GBS next visit. LEA Silver documented in this encounter Nursing Notes * Sulma Jamison LPN - 09/12/2023 8:13 AM EDT 35w6d Denies concerns Given breast pump rx documented in this encounter Plan of Treatment Upcoming Encounters Date Type Department Care Team (Late st Contact Info) Description 09/21/2023 9:15 AM EDT Office Visit Gynecology/Obstetrics [facility] [address] [place] [address] Casandra Flowers PA-C [address] [place] [address] Nurse Francois Healthy Beginnings Return John [address] [place], [place] [address] 09/27/2023 8:00 AM EDT Office Visit Gynecology/Obstetrics [facility] [address] [place], [place] [address] Tiffanie Glaser CRNP [address] [place] [address] Nurse Francois Healthy [facility]nings Return John [address] [place] [address] 10/03/2023 8:15 AM EDT Office Visit Gynecology/Obstetrics [facility] [address] [place], [place] [address] [place] CNM [address] [place] [address] Nurse Francois Healthy [facility]nings Return John [address] [place], [place] [address] 10/10/2023 8:15 AM EDT Office Visit Gynecology/Obstetrics [facility] [address] [facility] [place] [address] BackerDaphne CRNP [address] [place] [address] Nurse Francois Healthy Beginnings Return John [address] [place] [address] 06/28/2024 9:00 AM EST Office Visit Family Practice [facility] [place] [address] Lowell Severino, [address] [facility] [place] [address] 08/05/2024 8:15 AM EDT Office Visit Dermatology [facility] [place] [address] Abraham Mcnulty MD [address] [facility] [place] [address] Health Maintenance Due Date Last Done Comments GARDASIL-HPV IMMUNIZATION SERIES (3 - 3-dose series) 11/02/2014 08/10/2014, 02/07/2014 HPV/Co-Test 2019 COVID-19 Vaccine (2022- season) 2023 Influenza Vaccine (FLU shot) (Season [...] care documented in this encounter Care Teams Tail Puller Relationship Specialty Start Date End Date Lowell Severino DO [address] [place] [address] PCP - General Family Medicine 05/20/19 documented as of this encounter
--- OUTSIDE RECORDS SUMMARY | 2023-10-18 15:50 | External Medical Summary ---
Author Name Unknown Address Unknown Organization [id number]:LAB[facility]ATORY [facility] - [address] [facility] [address] Laboratory Report Ordering Provider Test Date Status LEONOR TANG 08/28/2023 09:10:25 Final Observation Date Value Abnormality Reference (Units ) Status WBC, Total 08/28/2023 09:10:25 10.49 4.00-10.8 0 (K/uL) Final RBC 08/28/2023 09:10:25 3.68 3.85-5.15 (M/uL) Final Hemoglobin 08/28/2023 09:10:25 12.0 12.0-15.3 (g/dL) Final Anemia reflex testing trigge rs on a HGB < 12.0 for Females and HGB < 13.0 for Males in accordance with the WHO Anemia Guidelines
Anemia reflex testing triggers on a HGB < 12.0 for Females and HGB < 13.0 for Males in accordance with the WHO Anemia Guidelines HCT 08/28/2023 09:10:25 36.4 36.0-45.2 (%) Final MCV 08/28/2023 09:10:25 98.9 81.5-97.5 (fL) Final MCH 08/28/2023 09:10:25 32.6 27.0-34.0 (pg) Final MCHC 08/28/2023 09:10:25 33.0 32.0-36.0 (g/dL) Final RDW 08/28/2023 09:10:25 13.2 11.5-15.5 (%) Final Platelets 08/28/2023 09:10:25 155 140-400 (K /uL) Final MPV 08/28/2023 09:10:25 11.9 6.6-11.1 ( fL) Final Nucleated erythrocytes/100 leukocytes [Ratio] in Blood by Automated count 08/28/2023 09:10:25 0 <=0 (/100 WBCs) [facility] Performing Location [facility] - [address] [facility] [address]
--- OUTSIDE RECORDS SUMMARY | 2023-10-18 15:50 | External Medical Summary ---
Author Name Unknown Address Unknown Organization [id number]:[facility]ORY [facility] [place] [address] [facility] [address]. [facility] [address] Laboratory Report Ordering Provider Test Date Status LEONOR TANG 08/28/2023 09:10:25 Final Observation Date Value Abnormality Reference (Units ) Status Treponema pallidum Ab [Presence] in Serum by Immunoassay 08/28/2023 09:10:25 Nonreactive Nonreactive Final No serologic evidence of syp hilis. No additional testing clinicially indicated at this time. Consider repeat testing in 2-4 weeks if acute or primary syphilis is suspected. Performing Location [facility] [place] [address] [place] [address]
--- OUTSIDE RECORDS SUMMARY | 2023-10-18 15:50 | External Medical Summary | Summary of Care ---
Author Name Unknown Organization [facility] Address [address] [place] [address] Phone [phone] Care Team Providers Care Sandblasting Supervisor Name Role Phone Juan CarlosLowell joseph Primary Care Provider Reason for Visit * Reason Comments Outpatient Testing Encounter Details Date Type Department Care Team (Late st Contact Info) Description 08/28/2023 8:50 AM EDT Laboratory Laboratory, [facility] [address] [place] [id number] [facility] [address] [place] [address] Supervision of other normal , antepartum Allergies No known active allergiesdocumented as of this encounter (statuses as of 08/28/2023) Medications Medication Sig Dispensed Refills Start Date [...] twice daily 50 g 3 07/18/2023 Active documented as of this encounter (statuses as of 08/28/2023) Active Problems Problem Noted Date Diagnosed Date Normal 08/28/2023 Late care 08/28/2023 Overview: Started at 16 wks Health counseling 10/03/2022 Overview: Problem Action Taken Date entered Entered by Date resolved Need for food assistance referred to [facility] and local food velez 10/03/2022 Viry [...] as of this encounter (statuses as of 08/28/2023) Resolved Problems Problem Noted Date Diagnosed Date Resolved Date Supervision of normal 10/03/2022 08/28/2023 Carrier of group B Streptococcus 06/16/2021 08/28/2023 Antepartum anemia complicating 04/09/2021 08/28/2023 Overview: Taking protein and supplements though product steward rather than Vitron C. Supervision of other normal 12/23/2020 08/28/2023 Group beta Strep positive 05/24/2019 Supervision of normal first , antepartum 12/24/2018 12/23/2020 LSC (lichen simplex chronicus) 10/04/2012 11/01/2018 Other acne 02/15/2011 11/01/2018 documented as of this encounter (statuses as of 08/28/2023) Immunizations Name Administration Dates Next Due HPV [...] money to get more. Never true 05/28/2023 [place] Depression Scale Answer Date Recorded [place] Depression Scale Total 0 08/28/2023 The thought [...] on file documented as of this encounter Plan of Treatment Upcoming Encounters Date Type Department Care Team (Late st Contact Info) Description 09/11/2023 8:45 AM EDT Office Visit Gynecology/Obstetrics [facility] [address] [place] [address] Dali Glass PA-C [address] [place] [address] Nurse Francois [facility] Return John [address] [place] [address] 09/18/2023 8:15 AM EDT Office Visit Gynecology/Obstetrics [facility] [address] [place] [address] Backer, LEA Holly [address] [place] [address] Nurse Francois [facility]nings Return John [address] [place], [place] [address] 09/25/2023 8:45 AM EDT Office Visit Gynecology/Obstetrics [facility] [address] [place] [address] Dali Glass PA-C [address] [place], [place] [address] Nurse Francois Healthy [facility]nings Return John [address] [place], [place] [address] 10/02/2023 8:15 AM EDT Office Visit Gynecology/Obstetrics [facility] [address] [place] [address] [place], AT[place] [address] [place] [address] Nurse Francois Healthy Beginnings Return John [address] [place] [address] 10/10/2023 8:15 AM EDT Office Visit Gynecology/Obstetrics [facility] Parrish [address] [place], [place] [address] Backer, LEA Holly [address] [place], [place] [address] Nurse Francois Healthy [facility]nings Return John [address] [place], [place] [address] 06/28/2024 9:00 AM EST Office Visit Family Practice [facility] [address] [place] [address] Lowell Severino DO [address] [facility] [place] [address] 08/05/2024 8:15 AM EDT Office Visit Dermatology [facility] [place] [address] [place] [address] Abraham Mcnulty MD [address] [place] [address] Pending Results Name Type Priority Associated Diagnoses Date /Time SYPHILIS ANTIBODY SCREEN WITH REFLEX TO RPR Lab Routine Supervision of other normal , antepartum 08/28/2023 9:10 AM EDT 50-G GESTATIONAL GLUCOSE, 1 HOUR Lab Routine Supervision of other normal , antepartum 08/28/2023 9:10 AM EDT CBC WITH WBC DIFFERENTIAL AND ANEMIA REFLEX WORKUP Lab Routine Supervision of other normal , antepartum 08/28/2023 9:10 AM EDT SYPHILIS ANTIBODY SCREEN Lab Routine Supervision of other normal , antepartum 08/28/2023 9:10 AM EDT ANEMIA CBC Lab Routine Supervision of other normal , antepartum 08/28/2023 9:10 AM EDT DIFFERENTIAL, AUTOMATED Lab Routine Supervision of other normal , antepartum 08/28/2023 9:10 AM EDT ANEMIA REFLEX CHEMISTRY HOLD Lab Routine Supervision of other normal , antepartum 08/28/2023 9:10 AM EDT Health Maintenance Due Date Last Done Comments [...] as of this encounter Visit Diagnoses Diagnosis Supervision of other normal , antepartum documented in this encounter Care Teams Sandblasting Supervisor Relationship Specialty Start Date End Date Lowell Severino DO [facility] [place] [address] PCP - General Family Medicine 05/20/19 documented as of this encounter
--- OUTSIDE RECORDS SUMMARY | 2023-10-18 15:50 | External Medical Summary | Summary of Care ---
Author Name Unknown Organization [facility] Address [address] [place] [address] Phone [phone] Care Team Providers Care Mechanical Meter Tester Name Role Phone Juan CarlosLowell joseph Primary Care Provider Encounter Details Date Type Department Care Team (Late st Contact Info) Description 09/14/2023 Telephone Gynecology/Obstetrics [facility] [address] [place] [address] Tiffanie Glaser CRNP [address] [facility] [place] [address] Allergies No known active allergiesdocumented as of this encounter (statuses as of 09/15/2023) Medications Medication Sig Dispensed Refills Start Date [...] as of this encounter (statuses as of 09/15/2023) Active Problems Problem Noted Date Diagnosed Date Normal 08/28/2023 Late care 08/28/2023 Overview: Started at 16 wks Health counseling 10/03/2022 Overview: Problem Action Taken Date entered Entered by Date resolved Need for food assistance referred to [facility] and local food velez 10/03/2022 Viry [...] as of this encounter (statuses as of 09/15/2023) Resolved Problems Problem Noted Date Diagnosed Date Resolved Date Supervision of normal 10/03/2022 08/28/2023 Carrier of group B Streptococcus 06/16/2021 08/28/2023 Antepartum anemia complicating 04/09/2021 08/28/2023 Overview: Taking protein and supplements though aluminum fabrication supervisor rather than Vitron C. Supervision of other normal 12/23/2020 08/28/2023 Group beta Strep positive 05/24/2019 Supervision of normal first , antepartum 12/24/2018 12/23/2020 LSC (lichen simplex chronicus) 10/04/2012 11/01/2018 Other acne 02/15/2011 11/01/2018 documented as of this encounter (statuses as of 09/15/2023) Immunizations Name Administration Dates Next Due HPV [...] money to get more. Never true 05/28/2023 [place] Depression Scale Answer Date Recorded [place] Depression Scale Total 0 08/28/2023 The thought [...] encounter Miscellaneous Notes * Telephone Encounter - Darlene Schaffer OSA - 09/15/2023 2:35 PM EDT Called patient and rescheduled appointment for 02.21.24 at 9:15. * Telephone Encounter - Zoila Vidales RN - 09/14/2023 1:55 PM EDT T/C from pt requesting to reschedule OB appt on 09/18 at 8:00 am. She has a dentist appt at that time. She said after 11:00 am on 09/18 she is free the rest of the day. Pt okay with being scheduled that day at another time or receiving a phone call to get rescheduled. documented in this encounter Plan of Treatment Upcoming Encounters Date Type Department Care Team (Late st Contact Info) Description 09/21/2023 9:15 AM EDT Office Visit Gynecology/Obstetrics [facility] [address] [place] [address] Casandra Flowers PA-C [address] [place] [address] [place] [address] Nurse Garland Parrish Beginningtoni Return John [address] [place] [address] 09/27/2023 8:00 AM EDT Office Visit Gynecology/Obstetrics [facility] [address] [place] [address] Tiffanie Glaser CRNP [address] [place] [address] Nurse Garland Parrish Beginnings Return John [address] [place] [address] 10/03/2023 8:15 AM EDT Office Visit Gynecology/Obstetrics Murphy Ellisons [address] [place] [address] [place] Or[place]ga, CNM [address] [facility] [place] [address] Nurse Francois Healthy Beginning Return John [address] [place] [address] 10/10/2023 8:15 AM EDT Office Visit Gynecology/Obstetrics Murphy Ellisons [address] [facility] [place] [address] Backer, LEA Holly [address] [facility] [place] [address] Nurse Francois Healthy [facility] John [address] [place] [address] 06/28/2024 9:00 AM EST Office Visit Family Practice [facility] [address] [facility] [place] [address] Lowell Severino, [address] [facility] [place] [address] 08/05/2024 8:15 AM EDT Office Visit Dermatology [facility] [address] [facility] [place] [address] Abraham Mcnulty MD [address] [facility] [place] [address] Health Maintenance Due Date Last Done Comments GARDASIL-HPV IMMUNIZATION SERIES (3 - 3-dose series) 11/02/2014 08/10/2014, 02/07/2014 HPV/Co-Test 2019 COVID-19 Vaccine (2022-24 season) 2023 Influenza Vaccine (FLU shot) (Season [...] filedocumented as of this encounter Care Teams Mechanical Meter Tester Relationship Specialty Start Date End Date Lowell Severino DO [address] [place] [place] [address] PCP - General Family Medicine 05/20/19 documented as of this encounter
--- OUTSIDE RECORDS SUMMARY | 2023-10-18 15:50 | External Medical Summary | Summary of Care ---
Author Name Unknown Organization [facility] Address [address] [place] [address] Phone [phone] Care Team Providers Care Rn Operating Room Name Role Phone SusanLowell richey Belinda BRYAN Primary Care Provider [phone] Reason for Visit * Reason Comments Return Visit Encounter Details Date Type Department Care Team (Late st Contact Info) Description 09/12/2023 8:00 AM EDT Office Visit Gynecology/Obstetri cs [facility] [address] [place] [address] Tiffanie Glaser CRNP [address] [place] [address] Nurse Francois Healthy Beginnings Return [facility] [address] [facility] [place] [address] Normal in third trimester*; Late care Allergies No known active allergiesdocumented as of this encounter (statuses as of 09/12/2023) Medications Medication Sig Dispensed Refills Start Date [...] as of this encounter (statuses as of 09/12/2023) Active Problems Problem Noted Date Diagnosed Date Normal 08/28/2023 Late care 08/28/2023 Overview: Started at 16 wks Health counseling 10/03/2022 Overview: Problem Action Taken Date entered Entered by Date resolved Need for food assistance referred to [facility] and local [employer] 10/03/2022 Viry Brown RN 10/03/2022 Problem Action [...] as of this encounter (statuses as of 09/12/2023) Resolved Problems Problem Noted Date Diagnosed Date Resolved Date Supervision of normal 10/03/2022 08/28/2023 Carrier of group B Streptococcus 06/16/2021 08/28/2023 Antepartum anemia complicating 04/09/2021 08/28/2023 Overview: Taking protein and supplements though hog sticker rather than Vitron C. Supervision of other normal 12/23/2020 08/28/2023 Group beta Strep positive 05/24/2019 Supervision of normal first , antepartum 12/24/2018 12/23/2020 LSC (lichen simplex chronicus) 10/04/2012 11/01/2018 Other acne 02/15/2011 11/01/2018 documented as of this encounter (statuses as of 09/12/2023) Immunizations Name Administration Dates Next Due HPV [...] money to get more. Never true 05/28/2023 [place] Depression Scale Answer Date Recorded [place] Depression Scale Total 0 08/28/2023 The thought [...] Care Team (Late st Contact Info) Description 09/19/2023 8:00 AM EDT [facility] [address] [place] [address] Tiffanie Glaser CRNP [address] [place], [place] [address] Nurse Francois Healthy Beginnings Return John [address] [place] [address] 09/27/2023 8:00 AM EDT Office Visit Gynecology/Obstetrics [facility] [address] [place], [place] [address] Tiffanie Glaser CRNP [address] [place] [address] Nurse Francois Healthy Beginnings Return John [address] [place], [place] [address] 10/03/2023 8:15 AM EDT Office Visit Gynecology/Obstetrics [facility] [address] [place] [address] [place]ga, ATA 400 [facility], [place] [address] Nurse Francois Healthy Beginnings Return John [address] [place], [place] [address] 10/10/2023 8:15 AM EDT Office Visit Gynecology/Obstetrics [facility] [address] [place] [address] Daphne Valdivia CRNP [address] [place], [place] [address] Nurse Francois Healthy Beginnings Return John [address] [place] [address] 06/28/2024 9:00 AM EST [facility] [address] [place] [address] Lowell Severino, DO [address] [place] [address] 08/05/2024 8:15 AM EDT Office [facility] [place] [address] [facility] [place] [address] Abraham Mcnulty MD 200 [place] [address] Health Maintenance Due Date Last Done Comments [...] care documented in this encounter Care Teams Rn Operating Room Relationship Specialty Start Date End Date Lowell Severino DO [address] [facility] [place], [place] [address] PCP - General Family Medicine 05/20/19 documented as of this encounter
--- OUTSIDE RECORDS SUMMARY | 2023-10-18 15:50 | External Medical Summary | Summary of Care ---
Author Name Unknown Organization [facility] Address [address] [place] [address] Phone [phone] Care Team Providers Care Angle Roll Operator Name Role Phone Juan CarlosLowell joseph Primary Care Provider Reason for Visit * Reason Comments Return Visit Encounter Details Date Type Department Care Team (Late st Contact Info) Description 08/28/2023 8:15 AM EDT Office Visit Gynecology/Obstetri [facility] [address] [facility] [place] [address] Daphne Valdivia CRNP [address] [place] [address] Nurse Francois Healthy Beginnings Return John [address] [facility] [place] [address] Normal in third trimester*; Breast feeding status of mother; Late care Allergies No known active allergiesdocumented [...] Z39.1, use as directed 1 Each 0 08/28/2023 Active documented as of this encounter (statuses as of 08/28/2023) Active Problems Problem Noted Date Diagnosed Date Normal 08/28/2023 Late care 08/28/2023 Overview: Started at 16 wks Health counseling 10/03/2022 Overview: Problem Action Taken Date entered Entered by Date resolved Need for food assistance referred to [facility] and local food velez 10/03/2022 Viry [...] Overview: Taking protein and supplements though supervisor paper machine rather than Vitron C. Supervision of other [...] money to get more. Never true 05/28/2023 [place] Depression Scale Answer Date Recorded [place] Depression Scale Total 0 08/28/2023 The thought [...] Sign Reading Time Taken Comments Blood Pressure 118/70 08/28/2023 8:13 AM EDT Pulse - - Temperature - - Respiratory Rate - - Oxygen Saturation - - Inhaled Oxygen Concentration - - Weight - - Height - - Body Mass Index - - documented in this encounter Progress Notes * Daphne Valdivia CRNP - 08/28/2023 8:16 AM EDT 33w5d Good movement. No ctx, leaking, bleeding. Completing 3rd trimester labs today. Labor instructions provided. Possibly vasectomy for future contraception. Rx breast pump. 2 week return LEA Cardona * Chary Diop LPN - 08/28/2023 8:11 AM EDT 33w5d Denies vaginal bleeding/rom + movement Labor instructions given [facility] breast [facility] documented in this encounter Plan of Treatment Upcoming Encounters Date Type Department Care Team (Late st Contact Info) Description 08/28/2023 8:50 AM EDT Laboratory Laboratory, [facility] [place] [address] [place] [id number] Modesta [facility] [address] [place] [address] Arrived 09/11/2023 8:45 AM EDT Office Visit Gynecology/[place] [address] Dali Glass PA-C [address] [place] [address] Nurse Francois Healthy Beginnings Return John [address] [place] [address] 09/18/2023 8:15 AM EDT Office Visit Gynecology/Obstetrics [facility] [address] [place] [address] Backer, LEA Holly [address] [place] [address] Nurse Francois Healthy Beginnings Return John [address] [place] [address] 09/25/2023 8:45 AM EDT Office Visit Gynecology/Obstetrics [facility] [address] [place] [address] Dali Glass PA-C [address] [place] [address] Nurse Franocis Healthy Beginnings Return John [address] [place] [address] 10/02/2023 8:15 AM EDT Office Visit Gynecology/Obstetrics [facility] [address] [place] [address] [place] Ortega, PABLO [address] [place] [address] [place] [address] Nurse Francois Healthy Beginnings Return John [address] [place] [address] 10/10/2023 8:15 AM EDT Office Visit Gynecology/Obstetrics [facility] [address] [place] [address] Backer, LEA Holly [address] [place] [address] Nurse Francois Healthy Beginnings Return John [address] [place] [address] 06/28/2024 9:00 AM EST Office Visit Family Practice [facility] [address] [facility] [place] [address] Lowell Severino DO [address] [facility] [place] [address] 08/05/2024 8:15 AM EDT Office Visit Dermatology [facility] [address] [facility] [place] [address] Abraham Mcnulty MD [address] [facility] [place] [address] Health Maintenance Due Date Last Done Comments [...] Diagnoses Diagnosis Normal in third trimester- Primary Breast feeding status of mother care and examination of lactating mother Late care Insufficient care documented in this encounter Care Teams Angle Roll Operator Relationship Specialty Start Date End Date Lowell Severino DO [address] [place] [address] PCP - General Family Medicine 05/20/19 documented as of this encounter
--- OUTSIDE RECORDS SUMMARY | 2023-10-18 15:50 | External Medical Summary ---
Author Name Unknown Address Unknown Organization K01:[facility] [place] [facility] [address] [facility] [address] Laboratory Report Ordering Provider Test Date Status JULIO FREGOSO 09/21/2023 10:15:39 Final Observation Date Value Abnormality Reference (Units ) Status Streptococcus agalactiae DNA [Presence] in Specimen by HOLA with probe detection 09/21/2023 10:15:39 Positive Abnormal Negative Final Group B Streptococcus detect ed by culture-enhanced PCR (amplified probe).
The collection of vaginal/rectal swab specimen combinations (FDA approved specimen type) is optimal for the detection of Group B Streptococcus. Single source collection (vaginal only or rectal only) or alternate specimen sources may lead to false negative results. Performing Location [facility] [place] - [address] [facility] [address] [facility] [address]
--- OUTSIDE RECORDS SUMMARY | 2023-10-18 15:50 | External Medical Summary | Summary of Care ---
Author Name Unknown Organization [facility] Address [address] [place] [address] Phone [phone] Care Team Providers Care Criminal Profiler Name Role Phone Juan CarlosLowell joseph Belinda BRYAN Primary Care Provider Encounter Details Date Type Department Care Team (Late st Contact Info) Description 09/05/2023 Telephone Gynecology/Obstetrics [facility] [address] [place] [address] Tiffnaie Glaser CRNP [address] [place] [address] Allergies No known active allergiesdocumented as of this encounter (statuses as of 09/05/2023) Medications Medication Sig Dispensed Refills Start Date [...] as of this encounter (statuses as of 09/05/2023) Active Problems Problem Noted Date Diagnosed Date Normal 08/28/2023 Late care 08/28/2023 Overview: Started at 16 wks Health counseling 10/03/2022 Overview: Problem Action Taken Date entered Entered by Date resolved Need for food assistance referred to [facility] and local food velez 10/03/2022 Viry [...] as of this encounter (statuses as of 09/05/2023) Resolved Problems Problem Noted Date Diagnosed Date Resolved Date Supervision of normal 10/03/2022 08/28/2023 Carrier of group B Streptococcus 06/16/2021 08/28/2023 Antepartum anemia complicating 04/09/2021 08/28/2023 Overview: Taking protein and supplements though fish net stringer rather than Vitron C. Supervision of other normal 12/23/2020 08/28/2023 Group beta Strep positive 05/24/2019 Supervision of normal first , antepartum 12/24/2018 12/23/2020 LSC (lichen simplex chronicus) 10/04/2012 11/01/2018 Other acne 02/15/2011 11/01/2018 documented as of this encounter (statuses as of 09/05/2023) Immunizations Name Administration Dates Next Due HPV [...] money to get more. Never true 05/28/2023 [place] Depression Scale Answer Date Recorded [place] Depression Scale Total 0 08/28/2023 The thought [...] encounter Miscellaneous Notes * Telephone Encounter - Phil Ramos MED ASSIST - 09/05/2023 11:54 AM EDT Appts rescheduled, pt aware * Telephone Encounter - Ryann Rivera RN - 09/05/2023 9:33 AM EDT Pt called the office stating that she needs to reschedule all of her appointments to a different day now to working Mondays. Will have phil call her to change appts. documented in this encounter Plan of Treatment Upcoming Encounters Date Type Department Care Team (Late st Contact Info) Description 09/12/2023 8:00 AM EDT Office Visit Gynecology/Obstetrics [facility] [address] [place] [address] Tiffanie Glaser CRNP [address] [place] [address] Nurse Francois Healthy Beginnings Return John [address] [place], [place] [address] 09/19/2023 8:00 AM EDT Office Visit Gynecology/Obstetrics [facility] [address] [place] [address] Tiffanie Glaser CRNP [address] [place], [place] [address] Nurse Garland Parrish Beginnings Return John [address] [place] [address] 09/27/2023 8:00 AM EDT Office Visit Gynecology/Obstetrics [facility] [address] [place] [address] Tiffanie Glaser CRNP [address] [place] [address] Nurse Francois Healthy Beginnings Return John [address] [place] [address] 10/03/2023 8:15 AM EDT Office Visit Gynecology/Obstetrics Murphy Ellisons [address] [place], [place] [address] [place] Ortega, [address], [place] [address] Nurse Francois Healthy Beginnings Return John [address] [place] [address] 10/10/2023 8:15 AM EDT Office Visit Gynecology/Obstetrics [facility] [address] [place] [address] Daphne Valdivia CRNP [address] [place] [address] Nurse Francois Healthy Beginnings Return John [address] [place], [place] [address] 06/28/2024 9:00 AM EST Office Visit Family Practice [facility] [address] [place], [place] [address] Lowell Severino, DO [address] [facility] [place], [place] [address] 08/05/2024 8:15 AM EDT Office Visit Dermatology Jeane Rivera [place] [address] [place] [address] Abraham Mcnulty MD [address] [place], [place] [address] Health Maintenance Due Date Last Done Comments GARDASIL-HPV IMMUNIZATION SERIES (3 - 3-dose series) 11/02/2014 08/10/2014, 02/07/2014 HPV/Co-Test 2019 COVID-19 Vaccine (1 - 2022-24 season) 2023 Influenza Vaccine (FLU shot) (Season [...] filedocumented as of this encounter Care Teams Criminal Profiler Relationship Specialty Start Date End Date Lowell Severino DO [address] [place] [address] PCP - General Family Medicine 05/20/19 documented as of this encounter
--- OUTSIDE RECORDS SUMMARY | 2023-10-18 15:50 | External Medical Summary ---
Author Name Unknown Address Unknown Organization K01:LABORATORY [facility] [place] - [address] [facility] [facility] [address] [facility] [address] Laboratory Report Ordering Provider Test Date Status LEONOR TANG 08/28/2023 09:10:25 Final Observation Date Value Abnormality Reference (Units ) Status TSH 08/28/2023 09:10:25 1.65 0.27-4.20 (uIU/mL) Final Performing Location LABORATORY [facility] - [address] [facility] [address]
--- OUTSIDE RECORDS SUMMARY | 2023-10-18 15:51 | External Medical Summary | Summary of Care ---
Author Name Unknown Organization [facility] Address [address] [place] [address] Phone [phone] Care Team Providers Care Dictating Transcribing Machine Servicer Name Role Phone Lowell Severino DO Primary Care Provider [phone] Reason for Referral * Evaluate & Treat - Unlimited Visits (Within 30 days (routine)) - Authorized Specialty Diagnoses / Procedures Referred By Jazmin dickson Referred To Contact Dermatology Diagnoses History of squamous cell carcinoma Lowell Severino DO [address] [place] [id number] Referral ID Status Reason Start Date Expiration Date Visits Requested Visits Authorized [id number] Authorized Specialty Services Required 06/27/2023 999 999 Question Answer Referral Priority Within 30 days (routine) Where should this appointment be scheduled? [facility] Are you referring the patient for Mohs Surgery and have a current positive skin cancer biopsy result? No What is the reason for the patient referral? Other Reason for Visit * Reason Comments Re-Check Encounter Details Date Type Department Care Team (Late st Contact Info) Description 06/27/2023 8:20 AM EST Office Visit Family Practice [facility] [address] [place] [id number] Lowell Severino DO [address] [place] [id number] Routine medical exam*; History of squamous cell carcinoma Allergies No known active allergiesdocumented as of this encounter (statuses as of 06/27/2023) Medications Medication Sig Dispensed Refills Start Date End Date Status Vit-Fe Fumarate-FA (DAVID-RUL VITAMINS) 28-0.8 MG TABS Take by mouth. 0 Active Triamcinolone Acetonide 0.1 % External Ointment (Aristocort) Apply topically to affected area 2 times a day. Apply to affected area 1-2 times a day 30 g 0 08/14/2020 Active valACYclovir HCl 1 GM Oral Tablet (Valtrex)Indications:Her petic gingivostomatitis take 2 tablets by mouth every 12 hours FOR 1 DAY FOR COLD SORES 8 Tablet 5 12/09/2022 Active documented as of this encounter (statuses as of 06/27/2023) Active Problems Problem Noted Date Diagnosed Date Health counseling 10/03/2022 Overview: Problem Action Taken Date entered Entered by Date resolved Need for food assistance referred to [facility] and local Copyright Agent 10/03/2022 Viry Brown RN 10/03/2022 Problem Action [...] or questions 06/26/2023 Viry Brown RN 06/26/2023 Supervision of normal 10/03/2022 Carrier of group B Streptococcus 06/16/2021 Antepartum anemia complicating 021 Overview: Taking protein and supplements though clothing supervisor rather than Vitron C. Supervision of other normal 12/23/2020 INFORMATION 05/27/2019 Overview: Daughter in law of Dr Fernandez( anesthesia) History of squamous cell carcinoma 08/07/2014 Multiple pigmented nevi 08/07/2014 Herpetic gingivostomatitis 02/15/2011 Estimated Date of Delivery Comme nts Yes 10/11/2023 Based on last me nstrual period of 01/04/2023 (Exact Date) documented as of this encounter (statuses as of 06/27/2023) Resolved Problems Problem Noted Date Diagnosed Date Resolved Date Group beta Strep positive 05/24/2019 Supervision of normal first , antepartum 12/24/2018 12/23/2020 LSC (lichen simplex chronicus) 10/04/2012 11/01/2018 Other acne 02/15/2011 11/01/2018 documented as of this encounter (statuses as of 06/27/2023) Immunizations Name Administration Dates Next Due HPV [...] money to get more. Never true 05/28/2023 [place] Depression Scale Answer Date Recorded [place] Depression Scale Total 0 04/28/2023 The thought of harming myself has occurred to me . Never 04/28/2023 Estimated Date of Delivery Comme nts Yes [...] Sign Reading Time Taken Comments Blood Pressure 108/60 06/27/2023 8:16 AM EST Pulse 83 06/27/2023 8:16 AM EST Temperature 36.9 C (98.4 F) 06/27/2023 8:16 AM ES T Respiratory Rate 16 06/27/2023 8:16 AM EST Oxygen Saturation 100% 06/27/2023 8:16 AM EST Inhaled Oxygen Concentration - - Weight 64.9 kg (143 lb) 06/27/2023 8:16 AM EST Height - - Body Mass Index 25.33 06/26/2023 7:41 AM EST documented in this encounter Progress Notes * Lowell Severino, DO - 06/27/2023 8:27 AM EST Subjective: Rea Fernandez is a 33 year old female. Chief Complaint Patient presents with Re-Check HPI: PT here for a physical. Currently 24 weeks . Some low back pain. History of skin CA. Needs skin checked. PMHx, PSHx, SHx, FHx, Medications, and Allergies fully reviewed Staying active. Miscarriage last summer and wonders if she was working too hard. Now doing some less. Active chasing kiddos. Diet has been good, focused on protein. Doing Prenatals and added Vitamin D. Patient Active Problem List Diagnosis Code Herpetic gingivostomatitis B00.2 History of squamous cell carcinoma Z85.89 Multiple pigmented nevi D22.9 INFORMATION INFO Supervision of other normal Z34.80 Antepartum anemia complicating O99.019 Carrier of group B Streptococcus Z22.330 Health counseling Z71.9 Supervision of normal Z34.90 Current Outpatient Medications Medication Sig Dispense Refill Vit-Fe Fumarate-FA (DAVID-RUL VITAMINS) 28-0.8 MG TABS Take by mouth. Triamcinolone Acetonide 0.1 % External Ointment (Aristocort) Apply topically to affected area 2 times a day. Apply to affected area 1-2 times a day 30 g 0 valACYclovir HCl 1 GM Oral Tablet (Valtrex) take 2 tablets by mouth every 12 hours FOR 1 DAY FOR COLD SORES 8 Tablet 5 No current facility-administered medications for this visit. Review of patient's allergies indicates: No Known Allergies OBJECTIVE: BP 108/60 | Pulse 83 | Temp 36.9 C (98.4 F) (Tympanic) | Resp 16 | Wt 64.9 kg (143 lb) | LMP 01/04/2023 (Exact Date) | SpO2 100% | BMI 25.33 kg/m | BSA 1.7 m Estimated body mass index is 25.33 kg/m as calculated from the following: Height as of 06/26/23: 1.6 m (5' 3"). Weight as of this encounter: 64.9 kg (143 lb). BP Readings from Last 3 Encounters: 06/27/23 108/60 06/26/23 104/70 05/29/23 116/64 Wt Readings from Last 3 Encounters: 06/27/23 64.9 kg (143 lb) 06/26/23 63.1 kg (139 lb 3.2 oz) 05/29/23 58.2 kg (128 lb 3.2 oz) ROS: General: No change in weight, No weakness, No fatigue and No fevers, sweats, or chills Head: No significant headache and No recent significant head injury Eyes: No recent significant change in vision, No eye pain, redness, discharge, or excessive tearing, No diplopia and No h/o cataracts or glaucoma Ears: No recent change in hearing, No tinnitus or vertigo, No ear pain and No ear discharge Nose: No h/o frequent colds or sinusitis, No nasal stuffiness, No h/o hay fever and No significant epistaxis Throat/Oropharynx: No teeth or gum problems, No bleeding gums, No tongue complaints, No sore throatand No recent change in voice or hoarseness Neck: No complaint of lumps in neck, No swollen glands, No recent swelling in thyroid area and No significant pain in neck Respiratory: No cough, sputum, or hemoptysis, No wheezing, No shortness of breath and No recent change in breathing Cardiac: No chest pain, No shortness of breath, No dyspnea on exertion, No orthopnea, No paroxysmalnocturnal dyspnea, No edema, No palpitations and No syncope Gastrointestinal: No dysphagia, No significant heartburn, No significant change in appetite, No nausea, vomiting, diarrhea, or constipation, No hematemesis, No blood in stools or black tarry stools, No abdominal bloating or early satiety and No abdominal pain Urinary: No urinary frequency, No dysuria, No hematuria, No urinary urgency, No polyuria, No nocturia, No incontinence, No hesitancy and No sensation of incomplete voiding Musculoskeletal: No joint pain or stiffness, No arthritis, No backache, No muscle pains or cramps and No joint swelling Hematologic: No anemia, No easy bruising or abnormal bleeding and No history of transfusion Neurologic: No fainting or blackouts, No seizures, No paralysis or focal weakness, No numbness or tingling, No tremors and No significant problems with memory PHYSICAL EXAM: General: alert, healthy and no distress Head: Normocephalic, No masses, lesions, tenderness or abnormalities Ears: External ears normal, Canals clear, TM's Normal Nose: no mucosal erythema, no mucosal edema, no purulent discharge Oropharynx: no exudate, no erythema, lips, buccal mucosa, and tongue normal and mucous membranes are moist Heart: regular rate & rhythm, no murmurs and no gallops Lungs: chest symmetric with normal AP diameter, no chest deformities noted, no chest wall tenderness, lungs clear to auscultation Abdomen: abdomen soft, non-tender, normal bowel sounds and no masses or organomegaly Extremities: less than 2 second capillary refill, no joint deformities, effusion, or inflammation Skin: growth on L chest compared to prior imaging. It has less pigmentation now and no thickness toit ASSESSMENT/Plan Routine medical exam (Primary) History of squamous cell carcinoma - DERMATOLOGY REFERRAL OP Dental and sun care discussed along with weight. Will follow with derm considering cncer history. The above was discussed and understanding was expressed. Lowell Severino DO documented in this encounter Nursing Notes * Justine Tuttle LPN - 06/27/2023 8:14 AM EST Rea Fernandez presents for 6 month recheck. Medications & HM reviewed. Denies any concerns at this time documented in this encounter Plan of Treatment Upcoming Encounters Date Type Department Care Team (Late st Contact Info) Description 07/27/2023 9:10 AM EDT Laboratory Laboratory, [facility] [address] [facility] [place] [id number] Modesta Parrish [facility] [address] [facility] [place] [address] 07/27/2023 9:30 AM EDT Office Visit Gynecology/Obstetrics [facility] [address] [facility] [place] [address] [place] CN[place] [address] [facility] [place] [address] Nurse Francois [facility] [address] [facility] [place] [address] 06/28/2024 9:00 AM EST Office Visit Family Practice [facility] [address] [place] [address] Lowell Severino, [address] [place] [address] Scheduled Referrals Name Type Priority Associated Diagnoses Orde r Schedule DERMATOLOGY REFERRAL OP Referral Within 30 days (routine) History of squamous cell carcinoma Ordered: 06/27/2023 Health Maintenance Due Date Last Done Comments COVID-19 Vaccine (#1) 1989 GARDASIL-HPV IMMUNIZATION SERIES (3 - 3-dose series) 11/02/2014 08/10/2014, 02/07/2014 HPV/Co-Test 2019 Influenza Vaccine (FLU shot) (#1) 2023 02/15/2011 DTaP,Tdap,and Td Vaccines (7 - Td [...] as of this encounter Visit Diagnoses Diagnosis Routine medical exam- Primary Routine general medical examination at a health care facility History of squamous cell carcinoma Personal history of malignant neoplasm of other site documented in this encounter Care Teams Dictating Transcribing Machine Servicer Relationship Specialty Start Date End Date Lowell Severino DO [address] [place] [address] PCP - General Family Medicine 05/20/19 documented as of this encounter
--- OUTSIDE RECORDS SUMMARY | 2023-10-18 15:51 | External Medical Summary | Summary of Care ---
Author Name Unknown Organization [facility] Address [address] [place] [address] Phone [phone] Care Team Providers Care Video Specialist Name Role Phone Selena Garay DO Primary Care Provider [phone] Reason for Visit * Reason Comments Follow Up Skin check- hx of sc c * Evaluate & Treat - Unlimited Visits (Within 30 days (routine)) - Authorized Specialty Diagnoses / Procedures Referred By Conthollis t Referred To Contact Dermatology Diagnoses History of squamous cell carcinoma Selena Garay DO [address] [place] [address] Referral ID Status Reason Start Date Expiration Date Visits Requested Visits Authorized [id number] Authorized Specialty Services Required 06/27/2023 999 999 Encounter Details Date Type Department Care Team (Late st Contact Info) Description 07/18/2023 9:45 AM EST Office Visit Dermatology [facility] [address] [place] [address] Abraham Mcnulty MD [address] [place] [address] Hx of squamous cell carcinoma*; Acne vulgaris; Solar lentiginosis; Recurrent nevus; LSC (lichen simplex chronicus); Scar Allergies No known active allergiesdocumented as of this encounter (statuses as of 07/18/2023) Medications Medication Sig Dispensed Refills Start Date [...] as of this encounter (statuses as of 07/18/2023) Active Problems Problem Noted Date Diagnosed Date [...] 021 Overview: Taking protein and supplements though magistrate assistant rather than Vitron C. Supervision of other normal 12/23/2020 INFORMATION 05/27/2019 Overview: Daughter in law of Dr Fernandez( anesthesia) History of squamous cell carcinoma 08/07/2014 Multiple pigmented nevi 08/07/2014 Herpetic gingivostomatitis 02/15/2011 Estimated Date of Delivery Comme nts Yes 10/11/2023 Based on last me nstrual period of 01/04/2023 (Exact Date) documented as of this encounter (statuses as of 07/18/2023) Resolved Problems Problem Noted Date Diagnosed Date Resolved Date Group beta Strep positive 05/24/2019 Supervision of normal first , antepartum 12/24/2018 12/23/2020 LSC (lichen simplex chronicus) 10/04/2012 11/01/2018 Other acne 02/15/2011 11/01/2018 documented as of this encounter (statuses as of 07/18/2023) Immunizations Name Administration Dates Next Due HPV [...] money to get more. Never true 05/28/2023 [place] Depression Scale Answer Date Recorded [place] Depression Scale Total 0 04/28/2023 The thought [...] on file documented as of this encounter Progress Notes * Abraham Mcnulty MD - 07/18/2023 9:38 AM EST SUBJECTIVE: Chief Complaint: Chief Complaint Patient presents with Follow Up Skin check- hx of scc HPI: Rea Fernandez is a 33 year old female seen for a full skin check for history of nonmelanomaskin cancer. Gets pimples on face, asking for tretinoin, currently Gets itchy skin on elbows. Using moisturizer DERMATOLOGIC HISTORY: SCC L brow near lid 2013 OBJECTIVE: GEN: Healthy, alert, no distress, appears oriented, pleasant, and cooperative SKIN: Detailed exam of hair, face, trunk, arms, and legs Left side of neck/collarbone - think eroded pink papule Face with a few scattered eroded erythematous papules Left lateral breast - atrophic scar with recurrent pigment Well-healed scar(s) at primary site(s) without evidence of recurrence Uniform appearing brown macules and patches in sun exposed areas. Elbows with scaling erythema and lichenifcation ASSESSMENT/PLAN: Inflammatory lesion (Neck/collarbone) - will message me in 1 month if not resolved Acne vulgaris - discussed limited options in - will trial azelaic acid (discussed likely safe) - if 15 or 20% not covered, patient to try The Ordinary 10% Recurrent nevus - Mildly atypical, not extending beyond scar, no need for further treatment Scar(s), History of Nonmelanoma Skin Cancer - Well healed scar(s) with no evidence of recurrence - Recommended periodic skin exams and instructed to call clinic if patient notices any changing lesions, including rapid enlargement, changes in color or shape or symptoms, bleeding, or other concerns. The common features and behavior of non-melanoma skin cancers (e.g. basal cell carcinoma/squamouscell carcinoma) as well as the features of melanoma were also reviewed. -Daily sun protection recommended including physical (i.e. clothing) and chemical blockers. Broad spectrum sunscreens with at least SPF 30 for UVA and UVA protection were recommended. Solar lentigines - Discussed that skin changes are due to chronic sun exposure. - Daily sun protection recommended as discussed above lichen simplex chronicus - Will hold on topical steroids as patient is currently - recommend frequent moisturizer Abraham Mcnulty MD Ref: SELENA GARAY[[id number]] [address] [facility] [place] [address] (office) [phone] (fax) PCP: SELENA GARAY [address] [place] [address] [phone] documented in this encounter Nursing Notes * Benita Yang LPN - 07/18/2023 9:29 AM EST Patient identified by name and date of . Do you have any concerns about pain management for today's visit? No Living Will or Advance Directive for Health Care as noted on problem list. [facility] is a way you can talk to your provider online through e-mail. Would you like to sign up? I can activate it for you? ALREADY ACTIVE Chief Complaint Patient presents with Follow Up Skin check- hx of scc documented in this encounter Plan of Treatment Upcoming Encounters Date Type Department Care Team (Late st Contact Info) Description 07/27/2023 9:10 AM EDT [facility] [address] Modesta Parrish [facility] 132 [facility] [place] [address] 07/27/2023 9:30 AM EDT Office Visit Gynecology/[address]etrics [address] [address] [place], [place] [address] [facility] [place] [address] Nurse Francois [facility] [address] 06/28/2024 9:00 AM EST Office Visit Family Practice [facility] 200 [facility] [place] [address] Selena Garay DO 200 [facility] [place] [address] 08/05/2024 8:15 AM EDT Office Visit Dermatology [facility] 200 [facility] [place] [address] Abraham Mcnulty MD 200 [facility] [place] [address] Health Maintenance Due Date Last Done Comments GARDASIL-HPV IMMUNIZATION SERIES (3 - 3-dose series) 11/02/2014 08/10/2014, 02/07/2014 HPV/Co-Test 2019 COVID-19 Vaccine (2022- season) 2023 Influenza Vaccine (FLU shot) (#1) 2023 02/15/2011 [...] as of this encounter Visit Diagnoses Diagnosis Hx of squamous cell carcinoma- Primary Personal history of malignant neoplasm of other site Acne vulgaris Other acne Solar lentiginosis Other dyschromia Recurrent nevus LSC (lichen simplex chronicus) Lichenification and lichen simplex chronicus Scar Scar condition and fibrosis of skin documented in this encounter Care Teams Video Specialist Relationship Specialty Start Date End Date Selena Garay DO [address] [place] [address] PCP - General Family Medicine 05/20/19 documented as of this encounter
--- OUTSIDE RECORDS SUMMARY | 2023-10-18 15:51 | External Medical Summary ---
Author Name Unknown Address Unknown Organization [facility] [address] [place] [id number] Laboratory Report Ordering Provider Test Date Status LEONOR TANG 08/28/2023 09:10:25 Final Observation Date Value Abnormality Reference (Units ) Status Glucose [Moles/volume] in Serum or Plasma --1 hour post 50 g glucose PO 08/28/2023 09:10:25 93 70-129 (mg/dL) Final Performing Location [facility] [address] [place] [id number]
--- OUTSIDE RECORDS SUMMARY | 2023-10-18 15:51 | External Medical Summary | Summary of Care ---
Author Name Unknown Organization [facility] Address [address] [place] [address] Phone [phone] Care Team Providers Care Income Tax Auditor Name Role Phone Juan CarlosLowell joseph Primary Care Provider Encounter Details Date Type Department Care Team (Late st Contact Info) Description 08/01/2023 Telephone Gynecology/Obstetrics [facility] [address] [place] [address] [place]oacano Cobos MD [address] [place] [address] Allergies No known active allergiesdocumented as of this encounter (statuses as of 08/01/2023) Medications Medication Sig Dispensed Refills Start Date [...] as of this encounter (statuses as of 08/01/2023) Active Problems Problem Noted Date Diagnosed Date Health counseling 10/03/2022 Overview: Problem Action Taken Date entered Entered by Date resolved Need for food assistance referred to [facility] and local food [place] 10/03/2022 Viry Brown RN 10/03/2022 Problem Action [...] 021 Overview: Taking protein and supplements though guest services lead rather than Vitron C. Supervision of other normal 12/23/2020 INFORMATION 05/27/2019 Overview: Daughter in law of Dr Fernandez( anesthesia) History of squamous cell carcinoma 08/07/2014 Multiple pigmented nevi 08/07/2014 Herpetic gingivostomatitis 02/15/2011 Estimated Date of Delivery Comme nts Yes 10/11/2023 Based on last me nstrual period of 01/04/2023 (Exact Date) documented as of this encounter (statuses as of 08/01/2023) Resolved Problems Problem Noted Date Diagnosed Date Resolved Date Group beta Strep positive 05/24/2019 Supervision of normal first , antepartum 12/24/2018 12/23/2020 LSC (lichen simplex chronicus) 10/04/2012 11/01/2018 Other acne 02/15/2011 11/01/2018 documented as of this encounter (statuses as of 08/01/2023) Immunizations Name Administration Dates Next Due HPV [...] money to get more. Never true 05/28/2023 [place] Depression Scale Answer Date Recorded [place] Depression Scale Total 0 04/28/2023 The thought [...] Telephone Encounter - Karen Lindsay LPN - 08/01/2023 1:06 PM EDT left message for patient to call office. Patient missed her last appointment and is on [facility] care report. documented in this encounter Plan of Treatment Upcoming Encounters Date Type Department Care Team (Late st Contact Info) Description 08/14/2023 11:30 AM EDT Office Visit Gynecology/Obstetrics Murphy Parrish [address] [facility] [place] [address] [place], [place] [address] [place] [address] Nurse Francois [facility] [address] [facility] [place] [address] 06/28/2024 9:00 AM EST Office Visit Family Practice [facility] [place] [address] [facility] [place] [address] Lowell Severino DO [address] [facility] [place] [address] 08/05/2024 8:15 AM EDT Office Visit Dermatology [facility] [place] [address] [facility] [place] [address] Abraham Mcnulty MD [address] [facility] [place] [address] Health Maintenance Due Date Last Done Comments [...] filedocumented as of this encounter Care Teams Income Tax Auditor Relationship Specialty Start Date End Date Lowell Severino DO [address] [place] [address] PCP - General Family Medicine 05/20/19 documented as of this encounter
--- OUTSIDE RECORDS SUMMARY | 2023-10-18 15:51 | External Medical Summary | Summary of Care ---
Author Name Unknown Organization [facility] Address [address] [place] [address] Phone [phone] Care Team Providers Care Mortgage Loan Funder Name Role Phone Juan CarlosLowell joseph Primary Care Provider [phone] Reason for Visit * Reason Comments Return Visit Encounter Details Date Type Department Care Team (Late st Contact Info) Description 08/14/2023 11:30 AM EDT Office [facility] 132 [facility] [place] [address] Santa Ortega CNM 400 [place] [address] Nurse Francois [facility] Beginnings Return [facility] 132 [facility] [place] [address] Encounter for supervision of other normal in third trimester* Allergies No known active allergiesdocumented as of this encounter (statuses as of 08/14/2023) Medications Medication Sig Dispensed Refills Start Date [...] as of this encounter (statuses as of 08/14/2023) Active Problems Problem Noted Date Diagnosed Date Health counseling 10/03/2022 Overview: Problem Action Taken Date entered Entered by Date resolved Need for food assistance referred to [facility] and local food velez 10/03/2022 Viry Brown [...] 021 Overview: Taking protein and supplements though jackaroo rather than Vitron C. Supervision of other normal 12/23/2020 INFORMATION 05/27/2019 Overview: Daughter in law of Dr Fernandez( anesthesia) History of squamous cell carcinoma 08/07/2014 Multiple pigmented nevi 08/07/2014 Herpetic gingivostomatitis 02/15/2011 Estimated Date of Delivery Comme nts Yes 10/11/2023 Based on last me nstrual period of 01/04/2023 (Exact Date) documented as of this encounter (statuses as of 08/14/2023) Resolved Problems Problem Noted Date Diagnosed Date Resolved Date Group beta Strep positive 05/24/2019 Supervision of normal first , antepartum 12/24/2018 12/23/2020 LSC (lichen simplex chronicus) 10/04/2012 11/01/2018 Other acne 02/15/2011 11/01/2018 documented as of this encounter (statuses as of 08/14/2023) Immunizations Name Administration Dates Next Due DTaP [...] money to get more. Never true 05/28/2023 Liberal Depression Scale Answer Date Recorded Liberal Depression Scale Total 0 04/28/2023 The thought [...] Sign Reading Time Taken Comments Blood Pressure 108/72 08/14/2023 11:38 AM EDT Pulse - - Temperature - - Respiratory Rate - - Oxygen Saturation - - Inhaled Oxygen Concentration - - Weight 68.1 kg (150 lb 3.2 oz) 08/14/2023 11:38 AM EDT Height 160 cm (5' 3") 08/14/2023 11:38 AM EDT Body Mass Index 26.61 08/14/2023 11:38 AM EDT documented in this encounter Progress Notes * Santa Ortega CNM - 08/14/2023 11:30 AM EDT Rea Fernandez is a 33 year old female here for her routine OB appointment at 31w5d Her Estimated Date of Delivery: 10/11/23 REVIEW OF SYSTEMS: She affirms movement. Denies vaginal bleeding, LOF, contractions, N/V, headaches PHYSICAL EXAM: Filed Vitals: 08/14/23 1138 BP: 108/72 Weight: 68.1 kg (150 lb 3.2 oz) Height: 1.6 m (5' 3") +FHT 120s Fundal height 32 ASSESSMENT/PLAN: No diagnosis found. Supervision of -has not done 28w labs yet, will check insurance coverage and then have them done - labor precautions and kick counts reviewed - RTO in 2 weeks Santa Ortega CNM documented in this encounter Nursing Notes * Viry Brown, RN - 08/14/2023 11:41 AM EDT Patient here for ITA visit No concerns + FM Checking with insurance on coverage of 28 wk labs , Has not completed yet. Recommended she completelabs. Patient seen by [facility] Electric Motor Repairman. Patient denies any questions or concerns. Viry Brown, RN documented in this encounter Plan of Treatment Upcoming Encounters Date Type Department Care Team (Late st Contact Info) Description 08/28/2023 8:15 AM EDT Office Visit Gynecology/Obstetrics [facility] [address] [place] [address] Daphne Valdivia CRNP [address] [place] [address] Nurse Francois [facility] Return [facility] [address] [place] [address] 09/11/2023 8:45 AM EDT Office Visit Gynecology/Obstetrics [facility] [address] [place], [place] [address] Dali Glass PA-C [address] [place] [address] Nurse Francois [facility] [address] [place] [address] 09/18/2023 8:15 AM EDT Office Visit Gynecology/Obstetrics [facility] [address] [place] [address] Daphne Valdivia CRNP [address] [place] [address] Nurse Francois [facility] [address] [place] [address] 09/25/2023 8:45 AM EDT Office Visit Gynecology/Obstetrics [facility] [address] [place] [address] Dali Glass PA-C [address] [place] [address] Nurse Francois [facility] [address] [place] [address] 10/02/2023 8:15 AM EDT Office Visit Gynecology/Obstetrics [facility] [address] [place] [address] [place]tega, [address] [place] [address] Nurse Francois [facility] Return [facility] [address] [place] [address] 10/10/2023 8:15 AM EDT Office Visit Gynecology/Obstetrics [facility] [address] [place] [address] Backer, LEA Holly [address] [place] [address] Nurse Francois [facility] Return [facility] [address] [place] [address] 06/28/2024 9:00 AM EST Office Visit Family Practice [facility] 200 [facility] [place], [place] [address] Lowell Severino, DO [address] [place], [place] [address] 08/05/2024 8:15 AM EDT Office Visit Dermatology [facility] [address] [place] [address] Abraham Mcnulty MD [address] [place] [address] Health Maintenance Due Date Last Done Comments [...] as of this encounter Visit Diagnoses Diagnosis Encounter for supervision of other normal in third trimester- Primary documented in this encounter Care Teams Mortgage Loan Funder Relationship Specialty Start Date End Date Lowell Severino DO [address] [place], [place] [address] PCP - General Family Medicine 05/20/19 documented as of this encounter
--- OUTSIDE RECORDS SUMMARY | 2023-10-18 15:51 | External Medical Summary | Summary of Care ---
Author Name Unknown Organization [facility] Address [address] [place] [address] Phone [phone] Care Team Providers Care Refrigeration Unit Repairer Name Role Phone Selena Garay DO Primary Care Provider Reason for Visit * Reason Onset Date Comments Medication Refill 07/15/2023 Encounter Details Date Type Department Care Team (Late st Contact Info) Description 07/15/2023 Refill Family Practice [facility] 200 [place] [address] Selena Garay DO 200 [place] [address] Herpetic gingivostomatitis Allergies No known active allergiesdocumented as of this encounter (statuses as of 07/17/2023) Medications Medication Sig Dispensed Refills Start Date End Date Status Vit-Fe Fumarate-FA (DAVID-RUL VITAMINS) 28-0.8 MG TABS Take by mouth. 0 Active Triamcinolone Acetonide 0.1 % External Ointment (Aristocort) Apply topically to affected area 2 times a day. Apply to affected area 1-2 times a day 30 g 0 08/14/2020 Active valACYclovir HCl 1 GM Oral Tablet (Valtrex)Indications:H erpetic gingivostomatitis take 2 tablets by mouth every 12 hours FOR 1 DAY FOR COLD SORES 8 Tablet 2 07/17/2023 Active valACYclovir HCl 1 GM Oral Tablet (Valtrex)Indications:H erpetic gingivostomatitis take 2 tablets by mouth every 12 hours FOR 1 DAY FOR COLD SORES 8 Tablet 5 12/09/2022 Discontinue d(Refill) documented as of this encounter (statuses as of 07/17/2023) Active Problems Problem Noted Date Diagnosed Date Health counseling 10/03/2022 Overview: Problem Action Taken Date entered Entered by Date resolved Need for food assistance referred to [facility] and local [employer] 10/03/2022 Viry Brown RN 10/03/2022 Problem Action [...] 021 Overview: Taking protein and supplements though brazer induction rather than Vitron C. Supervision of other normal 12/23/2020 INFORMATION 05/27/2019 Overview: Daughter in law of Dr Fernandez( anesthesia) History of squamous cell carcinoma 08/07/2014 Multiple pigmented nevi 08/07/2014 Herpetic gingivostomatitis 02/15/2011 Estimated Date of Delivery Comme nts Yes 10/11/2023 Based on last me nstrual period of 01/04/2023 (Exact Date) documented as of this encounter (statuses as of 07/17/2023) Resolved Problems Problem Noted Date Diagnosed Date Resolved Date Group beta Strep positive 05/24/2019 Supervision of normal first , antepartum 12/24/2018 12/23/2020 LSC (lichen simplex chronicus) 10/04/2012 11/01/2018 Other acne 02/15/2011 11/01/2018 documented as of this encounter (statuses as of 07/17/2023) Immunizations Name Administration Dates Next Due HPV [...] money to get more. Never true 05/28/2023 Talent Depression Scale Answer Date Recorded Talent Depression Scale Total 0 04/28/2023 The thought [...] encounter Miscellaneous Notes * Telephone Encounter - Regino Stanford, [facility] - 07/17/2023 1:18 PM EST Signed Prescriptions: Disp Refills valACYclovir HCl 1 GM Oral Tablet (Valtrex)8 Tabl*2 Sig: take 2 tablets by mouth every 12 hours FOR 1 DAY FOR COLD SORES Authorizing Provider: SELENA GARAY Ordering User: REGINO STANFORD * Telephone Encounter - Justine Glass, major case detective - 07/17/2023 11:15 AM EST Pending Prescriptions: Disp Refills valACYclovir HCl 1 GM Oral Tablet (Valtrex)8 Tabl*5 Sig: take 2 tablets by mouth every 12 hours FOR 1 DAY FOR COLD SORES * Telephone Encounter - Justine Glass, major case detective - 07/17/2023 11:14 AM EST Did you pend patient's preferred pharmacy and medication before forwarding?yes Pharmacy: [id number] Pending Prescriptions: Disp Refills valACYclovir HCl 1 GM Oral Tablet (Valtre*8 Tabl*5 Sig: take 2 tablets by mouth every 12 hours FOR 1 DAY FOR COLD SORES Last Visit: 06/27/2023 (in office), Visit date not found (telemedicine) Next Visit: 06/28/2024 If no future appointments scheduled, and last appointment is greater than a year ago, please schedule patient for a follow-up appointment Last date the medication was ordered: 12/09/22 Is this request for a controlled substance?No Urine Drug Screen:No results found for this or any previous visit. Patient Phone Numbers Labs: Lab Results Component Value Date/Time CREAT 0.6 04/07/2021 09:45 AM TSH 1.40 04/07/2021 09:45 AM documented in this encounter Plan of Treatment Upcoming Encounters Date Type Department Care Team (Late st Contact Info) Description 07/18/2023 9:45 AM EST Office Visit Dermatology [facility] [address] [place] [address] Abraham Mcnulty MD 200 [facility] [place] [address] 07/27/2023 9:10 AM EDT Laboratory Laboratory, [facility] [id number] [address] [facility] 132 [facility] [place] [address] 07/27/2023 9:30 AM EDT Office Visit Gynecology/Obstetrics [facility] 132 [facility] [place] [address] Santa Ortega CNM [address] [place] [address] [place] [address] Nurse Francois [facility] 132 [facility] [place] [address] 06/28/2024 9:00 AM EST Office Visit Family Practice [facility] [address] [place] [address] Selena Garay DO [address] [place], [place] [address] Health Maintenance Due Date Last Done Comments GARDASIL-HPV IMMUNIZATION SERIES (3 - 3-dose series) 11/02/2014 08/10/2014, 02/07/2014 HPV/Co-Test 2019 COVID-19 Vaccine ( season) 2023 Influenza Vaccine (FLU shot) (#1) [...] as of this encounter Visit Diagnoses Diagnosis Herpetic gingivostomatitis documented in this encounter Care Teams Refrigeration Unit Repairer Relationship Specialty Start Date End Date Selena Garay DO 200 [facility] [place] [address] PCP - General Family Medicine 05/20/19 documented as of this encounter
--- OUTSIDE RECORDS SUMMARY | 2023-10-18 15:51 | External Medical Summary | Summary of Care ---
Author Name Unknown Organization [facility] Address [address] [place] [address] Phone [phone] Care Team Providers Care Bar Staff Name Role Phone Lowell Severino DO Primary Care Provider [phone] Reason for Visit * Reason Comments eRx-Medication Refill Encounter Details Date Type Department Care Team (Late st Contact Info) Description 07/17/2023 Refill Family Practice [facility] 200 [facility] [place] [address] Lowell Severino DO 200 [facility] [address] Herpetic gingivostomatitis Allergies No known active allergiesdocumented [...] COLD SORES 8 Tablet 2 07/17/2023 Active documented as of this encounter (statuses as of 07/17/2023) Active Problems Problem Noted Date Diagnosed Date Health counseling 10/03/2022 Overview: Problem Action Taken Date entered Entered by Date resolved Need for food assistance referred to [facility] and local food velez 10/03/2022 Viry Brown [...] 021 Overview: Taking protein and supplements though statement processor rather than Vitron C. Supervision of other [...] money to get more. Never true 05/28/2023 [place] Depression Scale Answer Date Recorded [place] Depression Scale Total 0 04/28/2023 The thought [...] Notes * Telephone Encounter - Regino Stanford, [facility] - 07/17/2023 1:18 PM EST Refused Prescriptions: Disp Refills valACYclovir HCl 1 GM Oral Tablet (Valtrex)8 Tabl*5 Sig: take 2tablets by mouth every 12 hoursRefused By: REGINO STANFORD for Refusal: Duplicate Reque st documented in this encounter Plan of Treatment Upcoming Encounters Date Type Department Care Team (Late st Contact Info) Description 07/18/2023 9:45 AM EST Office Visit Dermatology [facility] [address] [place] [address] Abraham Mcnulty MD [address] [place] [address] 07/27/2023 9:10 AM EDT Laboratory Laboratory, [facility] 132 [facility] [place] [phone] ParrishModesta muñoz [facility] 132 [facility] [place] [address] 07/27/2023 9:30 AM EDT Office Visit Gynecology/Obstetrics [facility] 132 [facility] [place] [address] Santa Ortega, PABLO [address] [place], [place] [address] [address] Nurse Francois [facility] Return [facility] 132 [facility] [place] [address] 06/28/2024 9:00 AM EST Office Visit Family Practice [facility] [address] [place] [address] Lowell Severino DO [address] [place] [address] Health Maintenance Due Date Last Done Comments GARDASIL-HPV IMMUNIZATION SERIES (3 - 3-dose series) 11/02/2014 08/10/2014, 02/07/2014 HPV/Co-Test 2019 COVID-19 Vaccine (2022-24 season) 2023 Influenza Vaccine (FLU shot) (#1) [...] gingivostomatitis documented in this encounter Care Teams Bar Staff Relationship Specialty Start Date End Date Lowell Severino DO [address] [place] [address] PCP - General Family Medicine 05/20/19 documented as of this encounter
--- OUTSIDE RECORDS SUMMARY | 2023-10-18 15:51 | External Medical Summary | Summary of Care ---
Author Name Unknown Organization [facility] Address [address] [place] [address] Phone [phone] Care Team Providers Care Tallier Name Role Phone Juan CarlosLowell joseph Primary Care Provider [phone] Reason for Visit * Reason Comments Return Visit Encounter Details Date Type Department Care Team (Late st Contact Info) Description 08/14/2023 11:30 AM EDT [facility] 132 [facility] [place] [address] Santa Ortega CNM 400 [place] [address] Nurse Francois [facility] Beginnings Return [facility] 132 [facility] [place] [address] Encounter for supervision of other normal in [...] resolved Need for food assistance referred to [facility] and local food velez 10/03/2022 [...] 021 Overview: Taking protein and supplements though supervisory cbp officer rather than Vitron C. Supervision of other [...] 08/14/2023) Immunizations Name Administration Dates Next Due HPV [...] money to get more. Never true 05/28/2023 [place] Depression Scale Answer Date Recorded [place] Depression Scale Total 0 04/28/2023 The thought [...] in this encounter Nursing Notes * Viry Brown RN - 08/14/2023 11:41 AM EDT Patient here for ITA visit No concerns + FM Checking with insurance on coverage of 28 wk labs , Has not completed yet. Recommended she completelabs. Patient seen by [facility]. Patient denies any questions or concerns. Viry Brown RN documented in this encounter Plan of Treatment Upcoming Encounters Date Type Department Care Team (Late st Contact Info) Description 08/28/2023 8:15 AM EDT Office Visit Gynecology/Obstetrics [facility] [address] [place] [address] BackDaphne wilson CRNP [address] [place] [address] Nurse Francois [facility] Return John [address] [place] [address] 09/11/2023 8:45 AM EDT Office Visit Gynecology/Obstetrics [facility] [address] [place] [address] Dali Glass PA-C [address] [place] [address] Nurse Francois [facility] [address] [place] [address] 09/18/2023 8:15 AM EDT Office Visit Gynecology/Obstetrics [facility] [address] [place] [address] BackDaphne wilson CRNP [address] [place] [address] Nurse Francois [facility] John [address] [place] [address] 09/25/2023 8:45 AM EDT Office Visit Gynecology/Obstetrics [facility] [address] [place] [address] Dali Glass PA-C [address] [place] [address] Nurse Francois [facility] John [address] [place] [address] 10/02/2023 8:15 AM EDT Office Visit Gynecology/Obstetrics [facility] [address] [facility] [address] Santa Ortega CNM 400 [facility] [place] [address] Nurse Francois [facility] [address] [place] [address] 10/10/2023 8:15 AM EDT Office Visit Gynecology/Obstetrics [facility] [address] [facility] [place] [address] Daphne Valdivia CRNP [address] [facility] [place] [address] Nurse Francois [facility] Beginning[facility]i Return John [address] [place] [address] 06/28/2024 9:00 AM EST Office Visit Family Practice [facility] 200 [facility] [place], [place] [address] Lowell Severino DO 200 [facility] [place], [place] [address] 08/05/2024 8:15 AM EDT Office Visit Dermatology [facility] 200 [facility] [place], [place] [address] Abraham Mcnulty MD 200 [facility] [place], [place] [address] Health Maintenance Due Date Last Done Comments GARDASIL-HPV IMMUNIZATION SERIES (3 - 3-dose series) 11/02/2014 08/10/2014, 02/07/2014 HPV/Co-Test 2019 COVID-19 Vaccine ( - 2022-24 season) 2023 Influenza Vaccine (FLU [...] Primary documented in this encounter Care Teams Tallier Relationship Specialty Start Date End Date Lowell Severino DO [address] [place] [address] PCP - General Family Medicine 05/20/19 documented as of this encounter
--- OUTSIDE RECORDS SUMMARY | 2023-10-18 15:51 | External Medical Summary ---
Author Name Unknown Address Unknown Organization K01:[place] [facility] [place] 100 [facility] [address] Laboratory Report Ordering Provider Test Date Status LEONOR TANG 08/28/2023 09:10:25 Final Observation Date Value Abnormality Reference (Units ) Status SYNC LEUKOCYTES IN BLOOD BY AUTOMATED COUNT 08/28/2023 09:10:25 10.49 4.00-10.80 (K/uL) Final Segs 08/28/2023 09:10:25 75.6 Above high normal 40.0-75.0 (%) Final Lymphs % 08/28/2023 09:10:25 15.9 Below low normal 18.0-42.0 (%) Final Monos 08/28/2023 09:10:25 6.5 1.0-11.0 (%) Final Eosinophils 08/28/2023 09:10:25 0.0 0.0-6.0 (%) Final Basos 08/28/2023 09:10:25 0.5 0.0-2.0 (%) Final Immature Granulocyte, Percent 08/28/2023 09:10:25 1.5 0.0-2.0 (%) Final Absolute Segs 08/28/2023 09:10:25 7.93 Above high normal 1.80-7.70 (K/uL) Final Lymphs, absolute 08/28/2023 09:10:25 1.67 1.00-4.80 (K/ul) Final Monos, Abs 08/28/2023 09:10:25 0.68 0.00-1.10 (K/uL) Final Eos, Abs 08/28/2023 09:10:25 0.00 0.00-0.70 (K/uL) Final Basos, Abs 08/28/2023 09:10:25 0.05 0.00-0.20 (K/uL) Final Immature Granulocytes, Number 08/28/2023 09:10:25 0.16 0.00-0.20 (K/uL) Final Performing Location [place] [facility] [place] [facility] [address]. [facility] [address]
--- OUTSIDE RECORDS SUMMARY | 2023-10-18 15:52 | External Medical Summary | Summary of Care ---
Author Name Unknown Organization [facility] Address [address] [facility] [address] Phone [phone] Care Team Providers Care Component Prep Operator Name Role Phone SusanLowell richey Belinda BRYAN Primary Care Provider [phone] Reason for Visit * Reason Comments Return Visit Encounter Details Date Type Department Care Team (Late st Contact Info) Description 06/26/2023 7:30 AM EST Office Visit Gynecology/Obstetri [facility] [address] [place] [address] Dali Glass PA-C [address] [place] [address] Nurse [facility] [address] [place] [address] Supervision of other normal , antepartum* Allergies No known active allergiesdocumented as of this encounter (statuses as of 06/26/2023) Medications Medication Sig Dispensed Refills Start Date [...] as of this encounter (statuses as of 06/26/2023) Active Problems Problem Noted Date Diagnosed Date Health counseling 10/03/2022 Overview: Problem Action Taken Date entered Entered by Date resolved Need for food assistance referred to [facility] and local [employer] 10/03/2022 Viry Brown RN 10/03/2022 Problem Action Taken Date entered Entered by Date resolved Current needs or questions Patient denies having any current needs or questions 10/03/2022 Viry Brown RN 10/03/2022 Problem Action Taken Date entered Entered by Date resolved Late care Maternal Consult 04/28/2023 Viry Brwon RN 04/28/2023 Problem Action Taken Date entered [...] 021 Overview: Taking protein and supplements though master black belt rather than Vitron C. Supervision of other normal 12/23/2020 INFORMATION 05/27/2019 Overview: Daughter in law of Dr Fernandez( anesthesia) History of squamous cell carcinoma 08/07/2014 Multiple pigmented nevi 08/07/2014 Herpetic gingivostomatitis 02/15/2011 Estimated Date of Delivery Comme nts Yes 10/11/2023 Based on last me nstrual period of 01/04/2023 (Exact Date) documented as of this encounter (statuses as of 06/26/2023) Resolved Problems Problem Noted Date Diagnosed Date Resolved Date Group beta Strep positive 05/24/2019 Supervision of normal first , antepartum 12/24/2018 12/23/2020 LSC (lichen simplex chronicus) 10/04/2012 11/01/2018 Other acne 02/15/2011 11/01/2018 documented as of this encounter (statuses as of 06/26/2023) Immunizations Name Administration Dates Next Due HPV [...] money to get more. Never true 05/28/2023 Stendal Depression Scale Answer Date Recorded Stendal Depression Scale Total 0 04/28/2023 The thought [...] Sign Reading Time Taken Comments Blood Pressure 104/70 06/26/2023 7:41 AM EST Pulse - - Temperature - - Respiratory Rate - - Oxygen Saturation - - Inhaled Oxygen Concentration - - Weight 63.1 kg (139 lb 3.2 oz) 06/26/2023 7:41 A M EST Height 160 cm (5' 3") 06/26/2023 7:41 AM EST Body Mass Index 24.66 06/26/2023 7:41 AM EST documented in this encounter Progress Notes * Dali Glass PA-C - 06/26/2023 7:49 AM EST 24w5d Doing well, no concerns. Denies VB, LOF, contractions. Pos fm. Reviewed glucola with next visit. RTC in 4 weeks Dali Glass PA-C documented in this encounter Nursing Notes * Viry Brown RN - 06/26/2023 7:42 AM EST Patient here for ITA Pended 28wk labs No concerns Patient seen by [facility]. Patient denies any questions or concerns. documented in this encounter Plan of Treatment Upcoming Encounters Date Type Department Care Team (Late st Contact Info) Description 06/27/2023 8:20 AM EST Office Visit Family Practice [facility] [address] [facility] [place] [address] Lowell Severino, DO [address] [facility] [place] [address] 07/27/2023 9:10 AM EDT Laboratory Laboratory, [facility] [address] [facility] [place] [phone] Par[facility]esta muñoz [facility] [address] [facility] [place] [address] 07/27/2023 9:30 AM EDT Office Visit Gynecology/Obstetrics [facility] [address] [place] [address] [place], PABLO [address] [place] [address] [place] [address] Nurse [facility] [address] [place] [address] Scheduled Orders Name Type Priority Associated Diagnoses Orde r Schedule SYPHILIS ANTIBODY SCREEN WITH REFLEX TO RPR Lab Routine Supervision of other normal , antepartum Expected: 07/25/2023, Expires: 06/26/2024 50-G GESTATIONAL GLUCOSE, 1 HOUR Lab Routine Supervision of other normal , antepartum Expected: 07/25/2023, Expires: 06/26/2024 CBC WITH WBC DIFFERENTIAL AND ANEMIA REFLEX WORKUP Lab Routine Supervision of other normal , antepartum Expected: 07/25/2023, Expires: 06/26/2024 Health Maintenance Due Date Last Done Comments [...] Diagnoses Diagnosis Supervision of other normal , antepartum- Primary documented in this encounter Care Teams Component Prep Operator Relationship Specialty Start Date End Date Lowell Severino DO [address] [facility] [place] [address] PCP - General Family Medicine 05/20/19 documented as of this encounter
--- OUTSIDE RECORDS SUMMARY | 2023-10-18 15:52 | External Medical Summary | Summary of Care ---
Author Name Unknown Organization [facility] Address [address] [place] [address] Phone [phone] Care Team Providers Care Accountant Bookkeeper Name Role Phone SusanLowell richey Belinda BRYAN Primary Care Provider Reason for Visit * Reason Comments Healthy Beginnings New Encounter Details Date Type Department Care Team (Late st Contact Info) Description 04/28/2023 9:45 AM EST Office Visit Gynecology/Obstetric s [facility] [address] [place] [address] Clyde Glass PA-C [address] [place] [address] Gw, Nurse Radial Saw Operator New [address] [place] [address] Supervision of other normal , antepartum* Allergies No known active allergiesdocumented as of this encounter (statuses as of 05/03/2023) Medications Medication Sig Dispensed Refills Start Date End Date Status Vit-Fe Fumarate-FA (DAVID-RUL VITAMINS) 28-0.8 MG TABS Take by mouth. 0 Active Triamcinolone Acetonide 0.1 % External Ointment (Aristocort) Apply topically to affected area 2 times a day. Apply to affected area 1-2 times a day 30 g 0 1 Active valACYclovir HCl 1 GM Oral Tablet (Valtrex)Indications:H erpetic gingivostomatitis take 2 tablets by mouth every 12 hours FOR 1 DAY FOR COLD SORES 8 Tablet 5 3 Active Breast Pump Use as directed. 1 Each 0 1 04/28/20 23 Discontinued documented as of this encounter (statuses as of 05/03/2023) Active Problems Problem Noted Date Diagnosed Date Health counseling 10/03/2022 Overview: Problem Action Taken Date entered Entered by Date resolved Need for food assistance referred to [facility] and local [employer] 10/03/2022 Viry Brown RN 10/03/2022 Problem Action [...] or questions 04/28/2023 Viry Brown RN 04/28/2023 Supervision of normal 10/03/2022 Carrier of group B Streptococcus 06/16/2021 Antepartum anemia complicating 021 Overview: Taking protein and supplements though vendor management specialist rather than Vitron C. Supervision of other normal 12/23/2020 INFORMATION 05/27/2019 Overview: Daughter in law of Dr Fernandez( anesthesia) History of squamous cell carcinoma 08/07/2014 Multiple pigmented nevi 08/07/2014 Herpetic gingivostomatitis 02/15/2011 Estimated Date of Delivery Comme nts Yes 10/11/2023 Based on last me nstrual period of 01/04/2023 (Exact Date) documented as of this encounter (statuses as of 05/03/2023) Resolved Problems Problem Noted Date Diagnosed Date Resolved Date Group beta Strep positive 05/24/2019 Supervision of normal first , antepartum 12/24/2018 12/23/2020 LSC (lichen simplex chronicus) 10/04/2012 11/01/2018 Other acne 02/15/2011 11/01/2018 documented as of this encounter (statuses as of 05/03/2023) Immunizations Name Administration Dates Next Due DTaP Dipth/Tet/Acell Pertussis (Infanrix), Peds 02/09/1999,07/17/1997,06/19/1995, 995,09/09/1994 HIB PRP-T, 4 dose (ActHib) 04/14/1995 HPV Vaccine, 4-Valent 08/10/2014,02/07/2014 Hepatitis B, 0-19 yrs 11/17/1995,06/19/1995,05/1994 MMR - Measles/Mumps/Rubella Vaccine 07/17/1997,0 09/09/1994 OPV [...] e alcohol) rarely PHQ-2 Answer Date Recorded PHQ-2 Score 0 07/27/2018 Hunger Vital Sign Answer Date Recorded Within the past 12 months, y ou worried that your food would run out before you got the money to buy more. Never true 04/14/20 Within the past 12 months, t he food you bought just didn't last and you didn't have money to get more. Never true 04/14/2023 [place] Depression Scale Answer Date Recorded [place] Depression Scale Total 0 04/28/2023 The thought [...] Sign Reading Time Taken Comments Blood Pressure 104/68 04/28/2023 9:53 AM EST Pulse - - Temperature - - Respiratory Rate - - Oxygen Saturation - - Inhaled Oxygen Concentration - - Weight - - Height - - Body Mass Index - - documented in this encounter Progress Notes * Clyde Glass PA-C - 04/28/2023 10:40 AM EST CC: NOB HPI: Rea Fernandez is a 33 year old female here for initial OB exam. MONTY 10/11/2023 by LMP. LMP: 01/04/2023 menses were regular, pt is certain about date. She tracks her cycles. She is currently 16 weeks and 2 days according to LMP. She had declined ultrasound for dating and viability prior to arrival for NOB today. She did have SAB earlier this year in October 2022, beta-hcg trending to <1. She is taking vitamins. Reviewed PMH, social hx, family hx, surgical hx, ob hx with patient. Pertinent positives: n/a - Denies history of GHTN or GDM Current symptoms: denies bleeding or leaking. Pos FM. Discussed Qnatal and Quad screen. Declines genetic testing. She states did early at home blood testand found out it is BOY! Reviewed current medications with patient. Last pap smear 08/12/2021 NILM/-HPV [place] Depression Scale: [place] Depression Scale Total: 0 [place] suicide question and score: Score of 3 = Yes, quite often. Score of 2 = Sometimes. Score of 1 = Hardly ever The thought of harming myself has occurred to me.: 0 OB History Para Term AB Living 4 2 2 0 1 2 SAB IAB Ectopic Multiple Live Births 1 0 0 0 2 # Outcome Date GA Lbr Mynor/2nd Weight Sex Delivery Anes PTL Lv 4 Current 3 SAB 10/2022 2 Term 07/02/21 41w2d 3.883 kg (8 lb 9 oz) M Vag-Spont JUAN 1 Term 06/16/19 40w6d 3.705 kg (8 lb 2.7 oz) M Vag-Spont N JUAN Past Medical History: Diagnosis Date Closed ill-defined fractures of upper limb old avulsion fracture of right medial epicondyle Skin cancer left eyebrow Social History Socioeconomic History Marital status: Occupational History 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 Social Determinants of Health Food Insecurity: No Food Insecurity (04/14/2023) Hunger Vital Sign Worried About Running Out of Food in the Last Year: Never true Ran Out of Food in the Last Year: Never true Past Surgical History: Procedure Laterality Date INFORMATION elbow surgery INFORMATION 07/26/2017 07/26/2017 I & D of rectal abscess - office procedure Dr. Miramontes Current Outpatient Medications Medication Sig Dispense Refill Vit-Fe Fumarate-FA (DAVID-RUL VITAMINS) 28-0.8 MG TABS Take by mouth. Triamcinolone Acetonide 0.1 % External Ointment (Aristocort) Apply topically to affected area 2 times a day. Apply to affected area 1-2 times a day 30 g 0 Breast Pump Use as directed. 1 Each 0 valACYclovir HCl 1 GM Oral Tablet (Valtrex) take 2 tablets by mouth every 12 hours FOR 1 DAY FOR COLD SORES 8 Tablet 5 No current facility-administered medications for this visit. Review of patient's allergies indicates: No Known Allergies Family History Problem Relation Age of Onset No Past Hx None Skin cancer Grandfather (Maternal) Diabetes Grandfather (Maternal) Skin cancer Grandfather (Paternal) Denies family history of genetic conditions in patient's and FOB's families. ROS: General: no fevers, chills CV: no chest pain, SOB GI: no constipation, diarrhea Breast: no masses, nipple discharge : no vaginal bleeding, unusual vaginal discharge, dysuria Psychological: no anxiety, depression, SI/HI PHYSICAL EXAM: please see physical FH: fundus palpates approx alf between suprapubic bone and umbilicus consistent with 16 week GA FHT: 150's ASSESSMENT/PLAN: Supervision of other normal , antepartum (Primary) She had declined dating and viability ultrasound prior to appointment today. Reviewed with patient at time of appointment. We dicussed importance of ultrasound for dating and confirmation of jonas IUP. + FHT with doppler indicating viability. Upon discussion she was agreeable to dating ultrasound ahead of anatomy ultrasound which would be completed in 4 weeks, as long as not internal ultrasound. Given later GA, I discussed that an abdominal ultrasound for dating would likely be reasonable. She was agreeable to scheduling both ultrasound. Dating as soon as she can and then anatomy in about4 weeks. She politely declined breast and pelvic exam upon recommendation. Discussed genetic testing, declines. Advised daily vitamin. Recommended COVID and Flu vaccine. Call with any bleeding, cramping, LOF or concerns. - CULTURE, URINE, QUANTITATIVE; Future; Expected date: 04/28/2023 - TYPE AND SCREEN; Future; Expected date: 04/28/2023 - RUBELLA IGG ANTIBODY; Future; Expected date: 04/28/2023 - HEPATITIS B SURFACE ANTIGEN; Future; Expected date: 04/28/2023 - HIV ANTIGEN & ANTIBODY SCREEN W/ CONFIRMATION; Future; Expected date: 04/28/2023 - CHLAMYDIA TRACHOMATIS AND NEISSERIA GONORRHOEAE, AMPLIFIED PROBE; Future; Expected date: 04/28/2023 - CBC WITH WBC DIFFERENTIAL AND ANEMIA REFLEX WORKUP; Future; Expected date: 04/28/2023 - HEPATITIS C ANTIBODY SCREEN WITH PROGRESSION TO HEPATITIS C RNA QUANTITATIVE; Future; Expected date: 04/28/2023 - SYPHILIS ANTIBODY SCREEN WITH REFLEX TO RPR; Future; Expected date: 04/28/2023 - US PREG SINGLE/1ST GEST, 14 WEEKS OR LATER; Future; Expected date: 05/29/2023 - URINE SCREEN, POINT OF CARE (ENTER/EDIT) RTO in 4 weeks for ANTOLIN JEAN BAPTISTE with concern Clyde Glass PA-C documented in this encounter Nursing Notes * Viry Brown, JESSIKA - 04/28/2023 10:12 AM EST Patient here for NOB visit. Recent miscarriage in October 2022 LMP 01/04/2023 Patient refused dating US, + UPT in office today , agreeable to anatomy US Refuses pelvic exam today According to LMP she is about 16w No bleeding or pelvic pain Denies N/V/SÁNCHEZ Taking Patient refuses NOB education during visit, Denies any questions, Given OB book to take home, patient states "she knows everything". Given triage number Patient here to enroll in the Healthy Beginnings Plus program. Forms completed and intake assessment form completed. have you cut down with your smoking n/a have you quit n/a have you seen a cushion sewer n/a have you seen a social research assistant n/a are you receiving counseling no have you received dental care during your yes are you enrolled in WIC yes do you receive food stamps or lovell assistance no documented in this encounter Miscellaneous Notes * Addendum Note - Clyde Glass PA-C - 04/28/2023 11:59 AM ESTAddended by: CLYED GLASS on: 04/28/2023 11:59 AM Modules accepted: Orders documented in this encounter Plan of Treatment Upcoming Encounters Date Type Department Care Team (Late st Contact Info) Description 05/26/2023 9:15 AM EST Imaging Radiology [facility] 2nd [facility] [address] [place] [address] 05/26/2023 11:15 AM EST Office Visit Gynecology/Obstetrics [facility] [address] [place] [address] Clyde Glass PA-C [address] [place] [address] [facility] [address] [facility] [place] [address] 06/27/2023 8:20 AM EST Office Visit [facility] [address] [place] [address] Lowell Severino, DO [address] [facility] [place] [address] Scheduled Orders Name Type Priority Associated Diagnoses Orde r Schedule US PREG SINGLE/1ST GEST, 14 WEEKS OR LATER Medical Imaging Routine Supervision of other normal , antepartum Expected: 05/29/2023, Expires: 05/29/2024 Health Maintenance Due Date Last Done Comments COVID-19 Vaccine (#1) 1989 GARDASIL-HPV IMMUNIZATION SERIES (3 - 3-dose series) 11/02/2014 08/10/2014, 02/07/2014 HPV/Co-Test 2019 Depression Screening 11/02/2019 11/01/2018 Influenza Vaccine (FLU shot) (#1) 2023 02/15/2011 DTaP,Tdap,and Td Vaccines (7 - Td or Tdap) 02/08/2024 02/07/2014, 02/09/1999, 07/17/1997, Additional history exists Cervical Cancer Screening 08/12/2024 Pap Smear 08/12/2024 [...] Not on filedocumented as of this encounter Procedures Procedure Name Priority Date/Time Associated Diagnosis Comments CHLAMYDIA TRACHOMATIS AND NEISSERIA GONORRHOEAE, AMPLIFIED PROBE Routine 04/28/2023 11:02 AM EST Supervision of other normal , antepartum CULTURE, URINE, QUANTITATIVE Routine 04/28/2023 11:02 AM EST Supervision of other normal , antepartum URINALYSIS, POINT OF CARE (ENTER/EDIT) Routine 04/28/2023 Supervision of other normal , antepartum URINE SCREEN, POINT OF CARE (ENTER/EDIT) Routine 04/28/2023 Supervision of other normal , antepartum documented in this encounter Results * US PREG LIMITED 1 OR MORE FETUSES (05/03/2023 8:40 AM EST) Anatomical Region Laterality Modality Pelvis, Body Ultrasound 05/03/2023 9:01 AM EST Impressions 05/03/2023 8:58 AM EST IMPRESSION Single live fetus with MONTY of 10/17/2023. Follow-up anatomy scan in 4 weeks. Narrative 05/03/2023 8:58 AM EST EXAM US PREG LIMITED 1 OR MORE FETUSES - 05/03/2023 8:40 am HISTORY dating COMPARISON None TECHNIQUE Sonographic examination performed. FINDINGS General : Jonas Presentation: Cephalic heart rate: 155 bpm Amniotic Fluid: Normal Placenta: Posterior Biometry Biparietal diameter: 3.3 cm, 16w 1d Head circumference: 12.4 cm, 16w 2d Abdominal circumference: 10.1 cm, 16w 1d Femur length: 2.0 cm, 16w 1d Humeral length: 2.0 cm, 15w 6d HC/AC: 1.23,within normal limits The composite age is 16 weeks 1 days, which gives an estimated date of delivery of 10/17/2023. Maternal Structures Myometrium: Unremarkable Right ovary: Not seen Left ovary: Not seen Procedure Note Marshall Carlos MD - 05/03/2023 EXAM US PREG LIMITED 1 OR MORE FETUSES - 05/03/2023 8:40 am HISTORY dating COMPARISON None TECHNIQUE Sonographic examination performed. FINDINGS General : Jonas Presentation: Cephalic heart rate: 155 bpm Amniotic Fluid: Normal Placenta: Posterior Biometry Biparietal diameter: 3.3 cm, 16w 1d Head circumference: 12.4 cm, 16w 2d Abdominal circumference: 10.1 cm, 16w 1d Femur length: 2.0 cm, 16w 1d Humeral length: 2.0 cm, 15w 6d HC/AC: 1.23,within normal limits The composite age is 16 weeks 1 days, which gives an estimated dateof delivery of 10/17/2023. Maternal Structures Myometrium: Unremarkable Right ovary: Not seen Left ovary: Not seen IMPRESSION IMPRESSION Single live fetus with MONTY of 10/17/2023. Follow-up anatomy scan in 4weeks. Clyde Glass PA-C RAD ULTRASOUND * HIV ANTIGEN & ANTIBODY SCREEN W/ CONFIRMATION (04/28/2023 11:14 AM EST) Pathologist [facility] HIV Antigen & Antibody Negative Negative 04/28/2023 8:32 PM EST [facility] Comment:Negative HIV-1/2 ant igen and antibody screening tset results usually indicate the absence of HIV-1 and HIV-2 infection. However, such negative results do not rule-out acute HIV infection. If acute HIV-1 infection is highly suspected, it is recommended that a specimen be submitted for detection of HIV-1 RNA. Blood Venous blood specimen / Unknown Venipuncture / Unknown 04/28/2023 11:14 AM EST 04/28/2023 11:14 AM EST Clyde Glass PA-C LAB BLOOD ORDERABLES Performing Organization Address [facility] Co de Phone Number [facility]ORY [facility] [address] [place] [address] * HEPATITIS B SURFACE ANTIGEN (04/28/2023 11:14 AM EST) [facility] Hepatitis B Surface Antigen Negative Negative 04/28/2023 8:32 PM EST [facility] Blood Venous blood specimen / Unknown Venipuncture / Unknown 04/28/2023 11:14 AM EST 04/28/2023 11:14 AM EST Clyde Glass PA-C LAB BLOOD ORDERABLES Performing Organization Address [facility] de Phone Number [facility] [address] [place] [address] * (ABNORMAL) RUBELLA IGG ANTIBODY (04/28/2023 11:14 AM EST) Pathologist [facility] Rubella IgG Antibody Positive( A) Negative 04/28/2023 8:32 PM EST [facility] Comment:A positive result is consistent with having had rubella virus or vaccination. Blood Venous blood specimen / Unknown Venipuncture / Unknown 04/28/2023 11:14 AM EST 04/28/2023 11:14 AM EST Clyde Glass PA-C LAB BLOOD ORDERABLES [facility] [address] [place] [address] * TYPE AND SCREEN (04/28/2023 11:14 AM EST) ABO A 04/28/2023 6:50 PM EST [facility] BLOOD BANK Rh Positive 04/28/2023 6:50 PM EST [facility] BLOOD BANK Red Blood Cell Antibody Screen Negative 04/28/2023 6:50 PM EST [facility] BLOOD BANK Specimen Expiration Date 05/01/2023 23:59 04/28/2023 6:50 PM EST [facility] BLOOD BANK Blood Venous blood specimen / Unknown Venipuncture / Unknown 04/28/2023 11:14 AM EST 04/28/2023 11:14 AM EST Clyde Glass PA-C LAB BLOOD BANK TEST ORDERABLES Performing Organization Address [facility] de Phone Number LAB[facility]ATORY [facility] BLOOD BANK [address] [place] [id number] * CHLAMYDIA TRACHOMATIS AND NEISSERIA GONORRHOEAE, AMPLIFIED PROBE (04/28/2023 11:02 AM EST) Chlamydia Trachomatis Result Negative Negative 05/01/2023 11:46 AM EST [facility] Comment:No Chlamydia trachom atis detected by director university-mediated nucleic acid amplification. Neisseria Gonorrhoeae Result Negative Negative 05/01/2023 11:46 AM EST [facility] Comment:No Neisseria gonorrh oeae detected by director university-mediated nucleic acid amplification. Urine Urine specimen obtained by clean catch procedure / Unknown Non-blood Collection / Unknown 04/28/2023 11:02 AM EST 04/28/2023 11:02 AM EST Clyde Glass PA-C LAB MICRO - GENERAL ORDERABLES [facility] [address] [place] [address] * CULTURE, URINE, QUANTITATIVE (04/28/2023 11:02 AM EST) Culture Growth No significant growth 04/29/2023 11:15 AM EST [facility] Urine Urine specimen obtained by clean catch procedure / Unknown Non-blood Collection / Unknown 04/28/2023 11:02 AM EST 04/28/2023 11:02 AM EST Clyde Glass PA-C LAB MICRO - GENERAL ORDERABLES [facility] [address] [place] [address] * URINALYSIS, POINT OF CARE (ENTER/EDIT) (04/28/2023) Color, Urine Yellow Yellow or Light Yellow Clarity, Urine Clear Clear Glucose, Urine Negative Negative mg/dL Bilirubin, Urine Negative Negative Ketone, Urine Negative Negative mg/dL Specific [place], Urine 1.020 1.003 - 1.030 Blood, Urine Negative Negative pH, Urine 6.5 5.0 - 7.5 units Protein, Urine Negative Negative mg/dL Urobilinogen, Urine 0.2 0.2 - 1.0 mg/dL Nitrite, Urine Negative Negative Esterase, Urine Negative Negative Urine 04/28/2023 Clyde Glass PA-C LAB POINT OF CARE TE ST ENTER/EDIT ORDERABLES * URINE SCREEN, POINT OF CARE (ENTER/EDIT) (04/28/2023) hCG Beta, Urine Positive Negative Procedural Control Valid? Yes Lot Number [id number] Expiration Date 05/19/2024 Urine 04/28/2023 Clyde Glass PA-C LAB POINT OF CARE TE ST ENTER/EDIT ORDERABLES documented in this encounter Visit Diagnoses Diagnosis Supervision of other normal , antepartum- Primary Supervision of other normal , antepartum documented in this encounter Care Teams Accountant Bookkeeper Relationship Specialty Start Date End Date Lowell Severino DO [address] [place] [address] PCP - General Family Medicine 05/20/19 documented as of this encounter
--- OUTSIDE RECORDS SUMMARY | 2023-10-18 15:52 | External Medical Summary | Summary of Care ---
Author Name Unknown Organization [facility] Address [address] [facility] [address] Phone [phone] Care Team Providers Care Petrophysicist Name Role Phone SusanLowell richey Belinda BRYAN Primary Care Provider [phone] Reason for Visit * Reason Comments Return Visit Encounter Details Date Type Department Care Team (Late st Contact Info) Description 05/29/2023 10:30 AM EST Office Visit Gynecology/Obstetri cs [facility] [address] [place] [address] Dali Glass PA-C [address] [place] [address] Nurse Francois [facility] Return [facility] [address] [place] [address] 20 weeks gestation of * Allergies No known active allergiesdocumented as of this encounter (statuses as of 05/29/2023) Medications Medication Sig Dispensed Refills Start Date [...] as of this encounter (statuses as of 05/29/2023) Active Problems Problem Noted Date Diagnosed Date Health counseling 10/03/2022 Overview: Problem Action Taken Date entered Entered by Date resolved Need for food assistance referred to [facility] and local [employer] 10/03/2022 Viry Brown RN 10/03/2022 Problem Action [...] 021 Overview: Taking protein and supplements though seo manager rather than Vitron C. Supervision of other normal 12/23/2020 INFORMATION 05/27/2019 Overview: Daughter in law of Dr Fernandez( anesthesia) History of squamous cell carcinoma 08/07/2014 Multiple pigmented nevi 08/07/2014 Herpetic gingivostomatitis 02/15/2011 Estimated Date of Delivery Comme nts Yes 10/11/2023 Based on last me nstrual period of 01/04/2023 (Exact Date) documented as of this encounter (statuses as of 05/29/2023) Resolved Problems Problem Noted Date Diagnosed Date Resolved Date Group beta Strep positive 05/24/2019 Supervision of normal first , antepartum 12/24/2018 12/23/2020 LSC (lichen simplex chronicus) 10/04/2012 11/01/2018 Other acne 02/15/2011 11/01/2018 documented as of this encounter (statuses as of 05/29/2023) Immunizations Name Administration Dates Next Due HPV [...] money to get more. Never true 05/28/2023 [place] Depression Scale Answer Date Recorded [place] Depression Scale Total 0 04/28/2023 The thought [...] Sign Reading Time Taken Comments Blood Pressure 116/64 05/29/2023 10:43 AM EST Pulse - - Temperature - - Respiratory Rate - - Oxygen Saturation - - Inhaled Oxygen Concentration - - Weight 58.2 kg (128 lb 3.2 oz) 05/29/2023 10:43 AM EST Height 160 cm (5' 3") 05/29/2023 10:43 AM EST Body Mass Index 22.71 05/29/2023 10:43 AM EST documented in this encounter Progress Notes * Dali Glass PA-C - 05/29/2023 10:58 AM EST 20w5d Doing well, no concerns. Anatomy complete last week. Baby boy! Reviewed with patient. Denies bleeding, leaking, contractions. RTC in 4 weeks Dali Glass PA-C documented in this encounter Nursing Notes * Viry Brown RN - 05/29/2023 10:43 AM EST Patient here for ITA visit 20w5d No concerns Anatomy last week Patient seen by [facility] Basket Sorter. Patient denies any questions or concerns. documented in this encounter Plan of Treatment Upcoming Encounters Date Type Department Care Team (Late st Contact Info) Description 06/26/2023 7:30 AM EST Office Visit Gynecology/Obstetrics [facility] [address] [place] [address] Dali Glass PA-C [address] [place] [address] Nurse [facility] Return [facility] [address] [place] [address] 06/27/2023 8:20 AM EST Office Visit Family [facility] [place] [address] [facility] [place] [address] Lowell Severino DO [address] [facility] [place] [address] Health Maintenance Due Date Last Done Comments [...] as of this encounter Visit Diagnoses Diagnosis 20 weeks gestation of - Primary state, incidental documented in this encounter Care Teams Petrophysicist Relationship Specialty Start Date End Date Lowell Severino DO [address] [place] [address] PCP - General Family Medicine 05/20/19 documented as of this encounter
--- OUTSIDE RECORDS SUMMARY | 2023-10-18 15:52 | External Medical Summary | Summary of Care ---
Author Name Unknown Organization [facility] Address [address] [facility] [place] [address] Phone [phone] Care Team Providers Care Dermatology Teacher Name Role Phone SusanLowell richey Belinda BRYAN Primary Care Provider [phone] Reason for Visit * Reason Comments Healthy Beginnings New Encounter Details Date Type Department Care Team (Late st Contact Info) Description 04/28/2023 9:45 AM EST Office Visit Gynecology/Obstetric s [facility] [address] [place] [address] Clyde Glass PA-C [address] [place] [address] Gw, Nurse Medical Record Retrieval Specialist New [address] [place] [address] Supervision of other normal , antepartum* Allergies [...] resolved Need for food assistance referred to [facility] and local [employer] 10/03/2022 Viry Brown RN 10/03/2022 Problem [...] 021 Overview: Taking protein and supplements though closing specialist rather than Vitron C. Supervision of [...] money to get more. Never true 04/14/2023 [place] Depression Scale Answer Date Recorded [place] Depression Scale Total 0 04/28/2023 The thought [...] with patient. 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 Social Determinants of Health Food Insecurity: No [...] please see physical FH: fundus palpates approx group home between suprapubic bone and umbilicus consistent with [...] you quit n/a have you seen a clinical rehab liaison n/a have you seen a mental health social worker n/a are you receiving counseling no have you received dental care during your yes are you enrolled in WIC yes do you receive food stamps or lovell assistance no documented in this encounter Miscellaneous Notes * Addendum Note - Clyde Glass PA-C - 04/28/2023 11:59 AM ESTAddended by: CLYDE GLASS on: 04/28/2023 11:59 AM Modules accepted: Orders documented in this encounter Plan of Treatment Upcoming Encounters Date Type Department Care Team (Late st Contact Info) Description 05/26/2023 9:15 AM EST Imaging Radiology [facility] 2nd [facility] [address] [place] [address] 05/26/2023 11:15 AM EST Office Visit Gynecology/Obstetrics [facility] [address] [place] [address] Clyde Glass PA-C [address] [place] [address] Nurse [facility] [place] [facility] [place] [facility] [facility] [place] [address] 06/27/2023 8:20 AM EST Office Visit Family [facility] [address] [place] [address] Lowell Severino, DO [address] [facility] [place] [address] Scheduled Orders Name Type Priority Associated Diagnoses [...] seen Left ovary: Not seen Procedure Note Marhsall Carlos MD - 05/03/2023 EXAM US PREG [...] seen IMPRESSION IMPRESSION Single live fetus with MNOTY of 10/17/2023. Follow-up anatomy scan in 4weeks. Clyde Glass PA-C RAD ULTRASOUND * HIV ANTIGEN & ANTIBODY SCREEN W/ CONFIRMATION (04/28/2023 11:14 AM EST) Pathologist [facility] HIV Antigen & Antibody Negative Negative 04/28/2023 8:32 PM EST [facility] Comment:Negative HIV-1/2 ant igen and antibody screening [...] PA-C LAB BLOOD ORDERABLES Performing Organization Address [facility] Co de Phone Number [facility] [address] [place] [address] * HEPATITIS B SURFACE ANTIGEN (04/28/2023 11:14 AM EST) [facility] Hepatitis B Surface Antigen Negative Negative 04/28/2023 8:32 PM EST [facility] Blood Venous blood specimen / Unknown Venipuncture / Unknown 04/28/2023 11:14 AM EST 04/28/2023 11:14 AM EST Clyde Glass PA-C LAB BLOOD ORDERABLES Performing Organization Address City/[facility] de Phone Number [facility] [address] [place] [address] * (ABNORMAL) RUBELLA IGG ANTIBODY (04/28/2023 11:14 AM EST) Pathologist [facility] Rubella IgG Antibody Positive( A) Negative 04/28/2023 8:32 PM EST [facility] Comment:A positive result is consistent with having had rubella virus or vaccination. Blood Venous blood specimen / Unknown Venipuncture / Unknown 04/28/2023 11:14 AM EST 04/28/2023 11:14 AM EST Clyde Glass PA-C LAB BLOOD ORDERABLES [facility] [address] [place] [address] * TYPE AND SCREEN (04/28/2023 11:14 AM EST) ABO A 04/28/2023 6:50 PM EST [facility] BLOOD BANK Rh Positive 04/28/2023 6:50 PM EST [facility] BLOOD BANK Red Blood Cell Antibody Screen Negative 04/28/2023 6:50 PM EST [facility] BLOOD BANK Specimen Expiration Date 05/01/2023 23:59 04/28/2023 6:50 PM EST [facility] BLOOD BANK Blood Venous blood specimen / Unknown Venipuncture / Unknown 04/28/2023 11:14 AM EST 04/28/2023 11:14 AM EST Clyde Glass PA-C LAB BLOOD BANK TEST ORDERABLES Performing Organization Address [facility] de Phone Number [facility] BLOOD BANK [address] [place] [phone] * CHLAMYDIA TRACHOMATIS AND NEISSERIA GONORRHOEAE, AMPLIFIED PROBE (04/28/2023 11:02 AM EST) Chlamydia Trachomatis Result Negative Negative 05/01/2023 11:46 AM EST [facility] Comment:No Chlamydia trachom atis detected by yard switch operator-mediated nucleic acid amplification. Neisseria Gonorrhoeae Result Negative Negative 05/01/2023 11:46 AM EST [facility] Comment:No Neisseria gonorrh oeae detected by yard switch operator-mediated nucleic acid amplification. Urine Urine specimen obtained by clean catch procedure / Unknown Non-blood Collection / Unknown 04/28/2023 11:02 AM EST 04/28/2023 11:02 AM EST Clyde Glass PA-C LAB MICRO - GENERAL ORDERABLES [facility] [address] [place] [address] * CULTURE, URINE, QUANTITATIVE (04/28/2023 11:02 AM EST) Culture Growth No significant growth 04/29/2023 11:15 AM EST [facility] Urine Urine specimen obtained by clean catch procedure / Unknown Non-blood Collection / Unknown 04/28/2023 11:02 AM EST 04/28/2023 11:02 AM EST Clyde Glass PA-C LAB MICRO - GENERAL ORDERABLES [facility] [address] [place] [address] * URINALYSIS, POINT OF CARE (ENTER/EDIT) (04/28/2023) Color, Urine Yellow Yellow or Light Yellow Clarity, Urine Clear Clear Glucose, Urine Negative Negative mg/dL Bilirubin, Urine Negative Negative Ketone, Urine Negative Negative mg/dL Specific [place], Urine 1.020 1.003 - 1.030 Blood, Urine [...] antepartum documented in this encounter Care Teams Dermatology Teacher Relationship Specialty Start Date End Date Lowell Severino DO [address] [place] [address] PCP - General Family Medicine 05/20/19 documented as of this encounter
--- OUTSIDE RECORDS SUMMARY | 2023-10-18 15:52 | External Medical Summary | Summary of Care ---
Author Name Unknown Organization [facility] Address [address] [facility] [place] [address] Phone [phone] Care Team Providers Care Nursery Supervisor Name Role Phone SusanLowell richey Belinda BRYAN Primary Care Provider Reason for Visit * Reason Comments Healthy Beginnings New Encounter Details Date Type Department Care Team (Late st Contact Info) Description 04/28/2023 9:45 AM EST Office Visit Gynecology/Obstetric s [facility] [address] [place] [address] Clyde Glass PA-C [address] [place] [address] Gw, Nurse Manager Produce New [address] [place] [address] Supervision of other normal , antepartum* Allergies No known active allergiesdocumented as of this encounter (statuses as of 04/28/2023) Medications Medication Sig Dispensed Refills Start Date [...] as of this encounter (statuses as of 04/28/2023) Active Problems Problem Noted Date Diagnosed Date Health counseling 10/03/2022 Overview: Problem Action Taken Date entered Entered by Date resolved Need for food assistance referred to [facility] and local [employer] 10/03/2022 Viry Brown RN 10/03/2022 Problem Action [...] 021 Overview: Taking protein and supplements though automotive glass installer rather than Vitron C. Supervision of other normal 12/23/2020 INFORMATION 05/27/2019 Overview: Daughter in law of Dr Fernandez( anesthesia) History of squamous cell carcinoma 08/07/2014 Multiple pigmented nevi 08/07/2014 Herpetic gingivostomatitis 02/15/2011 Estimated Date of Delivery Comme nts Yes 10/11/2023 Based on last me nstrual period of 01/04/2023 (Exact Date) documented as of this encounter (statuses as of 04/28/2023) Resolved Problems Problem Noted Date Diagnosed Date Resolved Date Group beta Strep positive 05/24/2019 Supervision of normal first , antepartum 12/24/2018 12/23/2020 LSC (lichen simplex chronicus) 10/04/2012 11/01/2018 Other acne 02/15/2011 11/01/2018 documented as of this encounter (statuses as of 04/28/2023) Immunizations Name Administration Dates Next Due DTaP [...] money to get more. Never true 04/14/2023 [place] Depression Scale Answer Date Recorded [place] Depression Scale Total 0 04/28/2023 The thought [...] with patient. 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 Social Determinants of Health Food Insecurity: No [...] please see physical FH: fundus palpates approx half-way between suprapubic bone and umbilicus consistent with [...] you quit n/a have you seen a jr. systems administrator n/a have you seen a licensed clinical social worker n/a are you receiving counseling no have you received dental care during your yes are you enrolled in [place] yes do you receive food stamps or loevll assistance no documented in this encounter Miscellaneous Notes * Addendum Note - Clyde Glass PA-C - 04/28/2023 11:59 AM ESTAddended by: CLYDE GLASS on: 04/28/2023 11:59 AM Modules accepted: Orders documented in this encounter Plan of Treatment Upcoming Encounters Date Type Department Care Team (Late st Contact Info) Description 05/03/2023 8:15 AM EST Imaging Rad[facility] [place] [address] 05/26/2023 9:15 AM EST Imaging Radiology [facility] 2nd Floor, [place] [facility] [place] [address] 05/26/2023 11:15 AM EST Office Visit Gynecology/Obstetrics [facility] [address] [facility] [place] [address] Clyde Glass PA-C [address] [place] [address] Nurse Francois Healthy Beginnings Return [facility] [place] [address] 06/27/2023 8:20 AM EST Office Visit Family [facility] [place] [address] [facility] [place], [place] [address] Lowell Severino DO [address] [facility] [place], [place] [address] Pending Results Name Type Priority Associated Diagnoses Date /Time CULTURE, URINE, QUANTITATIVE Lab Routine Supervision of other normal , antepartum 04/28/2023 11:02 AM EST TYPE AND SCREEN Lab Routine Supervision of other normal , antepartum 04/28/2023 11:14 AM EST RUBELLA IGG ANTIBODY Lab Routine Supervision of other normal , antepartum 04/28/2023 11:14 AM EST HEPATITIS B SURFACE ANTIGEN Lab Routine Supervision of other normal , antepartum 04/28/2023 11:14 AM EST HIV ANTIGEN & ANTIBODY SCREEN W/ CONFIRMATION Lab Routine Supervision of other normal , antepartum 04/28/2023 11:14 AM EST CBC WITH WBC DIFFERENTIAL AND ANEMIA REFLEX WORKUP Lab Routine Supervision of other normal , antepartum 04/28/2023 11:14 AM EST HEPATITIS C ANTIBODY SCREEN WITH PROGRESSION TO HEPATITIS C RNA QUANTITATIVE Lab Routine Supervision of other normal , antepartum 04/28/2023 11:14 AM EST SYPHILIS ANTIBODY SCREEN WITH REFLEX TO RPR Lab Routine Supervision of other normal , antepartum 04/28/2023 11:14 AM EST CHLAMYDIA TRACHOMATIS AND NEISSERIA GONORRHOEAE, AMPLIFIED PROBE Lab Routine Supervision of other normal , antepartum 04/28/2023 11:02 AM EST Scheduled Orders Name Type Priority Associated Diagnoses Orde r Schedule CULTURE, URINE, QUANTITATIVE Lab Routine Supervision of other normal , antepartum Expected: 04/28/2023, Expires: 04/28/2024 TYPE AND SCREEN Lab Routine Supervision of other normal , antepartum Expected: 04/28/2023, Expires: 05/29/2024 RUBELLA IGG ANTIBODY Lab Routine Supervision of other normal , antepartum Expected: 04/28/2023, Expires: 04/28/2024 HEPATITIS B SURFACE ANTIGEN Lab Routine Supervision of other normal , antepartum Expected: 04/28/2023, Expires: 04/28/2024 HIV ANTIGEN & ANTIBODY SCREEN W/ CONFIRMATION Lab Routine Supervision of other normal , antepartum Expected: 04/28/2023, Expires: 04/28/2024 CBC WITH WBC DIFFERENTIAL AND ANEMIA REFLEX WORKUP Lab Routine Supervision of other normal , antepartum Expected: 04/28/2023, Expires: 04/28/2024 HEPATITIS C ANTIBODY SCREEN WITH PROGRESSION TO HEPATITIS C RNA QUANTITATIVE Lab Routine Supervision of other normal , antepartum Expected: 04/28/2023, Expires: 04/28/2024 SYPHILIS ANTIBODY SCREEN WITH REFLEX TO RPR Lab Routine Supervision of other normal , antepartum Expected: 04/28/2023, Expires: 04/28/2024 US PREG SINGLE/1ST GEST, 14 WEEKS OR LATER Medical Imaging Routine Supervision of other normal , antepartum Expected: 05/29/2023, Expires: 05/29/2024 CHLAMYDIA TRACHOMATIS AND NEISSERIA GONORRHOEAE, AMPLIFIED PROBE Lab Routine Supervision of other normal , antepartum Expected: 04/28/2023, Expires: 04/28/2024 US PREG LIMITED 1 OR MORE FETUSES Medical Imaging Routine Supervision of other normal , antepartum Expected: 04/28/2023, Expires: 05/29/2024 Health Maintenance Due Date Last [...] Procedure Name Priority Date/Time Associated Diagnosis Comments URINALYSIS, POINT OF CARE (ENTER/EDIT) Routine 04/28/2023 Supervision of other normal , antepartum URINE SCREEN, POINT OF CARE (ENTER/EDIT) Routine 04/28/2023 Supervision of other normal , antepartum documented in this encounter Results * URINALYSIS, POINT OF CARE (ENTER/EDIT) (04/28/2023) Color, Urine Yellow Yellow or Light Yellow Clarity, Urine Clear Clear Glucose, Urine Negative Negative mg/dL Bilirubin, Urine Negative Negative Ketone, Urine Negative Negative mg/dL Specific [place], Urine 1.020 1.003 - 1.030 Blood, Urine [...] Primary documented in this encounter Care Teams Nursery Supervisor Relationship Specialty Start Date End Date Lowell Severino DO [address] [place] [address] PCP - General Family Medicine 05/20/19 documented as of this encounter
--- OUTSIDE RECORDS SUMMARY | 2023-10-18 15:52 | External Medical Summary | Summary of Care ---
Author Name Unknown Organization [facility] Address [address] [place] [facility] [place] [address] Phone [phone] Care Team Providers Care Shop Technician Name Role Phone SusanLowell richey Belinda BRYAN Primary Care Provider Reason for Visit * Reason Comments Healthy Beginnings New Encounter Details Date Type Department Care Team (Late st Contact Info) Description 04/28/2023 9:45 AM EST Office Visit Gynecology/Obstetric s [facility] [address] [place] [address] Clyde Glass PA-C [address] [place] [address] Gw, Nurse Animal Biologist New [address] [place] [address] Supervision of other normal , antepartum* Allergies [...] resolved Need for food assistance referred to [facility] and local [employer] 10/03/2022 Viry Brown RN 10/03/2022 Problem [...] 021 Overview: Taking protein and supplements though clerk carrier rather than Vitron C. Supervision of other [...] money to get more. Never true 04/14/2023 [place] Depression Scale Answer Date Recorded [place] Depression Scale Total 0 04/28/2023 The thought [...] with patient. 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 Social Determinants of Health Food Insecurity: No Food Insecurity (04/14/2023) Hunger Vital Sign Worried About Running Out of Food in the Last Year: Never true Ran Out of Food in the Last Year: Never true Past Surgical History: Procedure Laterality Date INFORMATION elbow surgery INFORMATION 07/26/2017 07/26/2017 I & D of rectal abscess - office procedure Dr. iMramontes Current Outpatient Medications Medication Sig Dispense Refill [...] you quit n/a have you seen a online affiliate marketing manager n/a have you seen a social media campaign manager n/a are you receiving counseling no have [...] Description 05/03/2023 8:15 AM EST Imaging Radiology [facility] [place] [address] 05/26/2023 9:15 AM EST Imaging Radiology [facility] 2nd Floor, [place] [facility] [place] [address] 05/26/2023 11:15 AM EST Office Visit Gynecology/Obstetrics [facility] [place] [address] Clyde Glass PA-C [address] [place] [address] Nurse Francois Healthy Beginnings Return [facility] [place] [address] 06/27/2023 8:20 AM EST Office Visit Family [facility] [place] [address] [facility] [place], [place] [address] Lowell Severino DO [address] [facility] [place], [place] [address] Pending Results Name Type Priority Associated Diagnoses [...] Negative Ketone, Urine Negative Negative mg/dL Specific [place], Urine 1.020 1.003 - 1.030 Blood, Urine [...] Primary documented in this encounter Care Teams Shop Technician Relationship Specialty Start Date End Date Lowell Severino DO [address] [place] [address] PCP - General Family Medicine 05/20/19 documented as of this encounter
--- OUTSIDE RECORDS SUMMARY | 2023-10-18 15:52 | External Medical Summary | Summary of Care ---
Author Name Unknown Organization [facility] Address [address] [facility] [place] [address] Phone [phone] Care Team Providers Care Multiple Knife Edge Trimmer Operator Name Role Phone SusanLowell richey Primary Care Provider [phone] Reason for Visit * Reason Comments Healthy Beginnings Return Encounter Details Date Type Department Care Team (Late st Contact Info) Description 05/26/2023 11:15 AM EST Office Visit Gynecology/Obstetri [facility] [address] [place] [address] Dali Glass PA-C [address] [place] [address] Nurse Francois Healthy Beginnings Return John [address] [place] [address] 20 weeks gestation of * Allergies No known active allergiesdocumented as of this encounter (statuses as of 05/31/2023) Medications Medication Sig Dispensed Refills Start Date [...] as of this encounter (statuses as of 05/31/2023) Active Problems Problem Noted Date Diagnosed Date Health counseling 10/03/2022 Overview: Problem Action Taken Date entered Entered by Date resolved Need for food assistance referred to [facility] and local [employer] 10/03/2022 Viry Brown RN 10/03/2022 Problem Action [...] 021 Overview: Taking protein and supplements though grain drier operator rather than Vitron C. Supervision of other normal 12/23/2020 INFORMATION 05/27/2019 Overview: Daughter in law of Dr Fernandez( anesthesia) History of squamous cell carcinoma 08/07/2014 Multiple pigmented nevi 08/07/2014 Herpetic gingivostomatitis 02/15/2011 Estimated Date of Delivery Comme nts Yes 10/11/2023 Based on last me nstrual period of 01/04/2023 (Exact Date) documented as of this encounter (statuses as of 05/31/2023) Resolved Problems Problem Noted Date Diagnosed Date Resolved Date Group beta Strep positive 05/24/2019 Supervision of normal first , antepartum 12/24/2018 12/23/2020 LSC (lichen simplex chronicus) 10/04/2012 11/01/2018 Other acne 02/15/2011 11/01/2018 documented as of this encounter (statuses as of 05/31/2023) Immunizations Name Administration Dates Next Due HPV [...] money to get more. Never true 05/28/2023 [place] Depression Scale Answer Date Recorded [place] Depression Scale Total 0 04/28/2023 The thought [...] Sign Reading Time Taken Comments Blood Pressure - - Pulse - - Temperature - - Respiratory Rate - - Oxygen Saturation - - Inhaled Oxygen Concentration - - Weight 58.9 kg (129 lb 12.8 oz) 024 10:11 AM EST Height 160 cm (5' 3") 05/26/2023 10:11 AM EST Body Mass Index 22.99 05/26/2023 10:11 AM EST documented in this encounter Progress Notes * Dali Glass PA-C - 05/31/2023 4:30 PM EST Patient left without being seen. Rescheduled different date. documented in this encounter Nursing Notes * Sulma Jamison LPN - 05/26/2023 10:11 AM EST 20w2d Anatomy US today. documented in this encounter Plan of Treatment Upcoming Encounters Date Type Department Care Team (Late st Contact Info) Description 06/26/2023 7:30 AM EST Office Visit Gynecology/Obstetrics [facility] [address] [place] [address] Dali Glass PA-C [address] [place] [address] Nurse Francois Healthy Beginnings Return John [address] [place] [address] 06/27/2023 8:20 AM EST Office Visit Family Practice [facility] [address] [facility] [place], [place] [address] Lowell Severino, [address] [facility] [place] [address] Health Maintenance Due Date Last Done Comments [...] incidental documented in this encounter Care Teams Multiple Knife Edge Trimmer Operator Relationship Specialty Start Date End Date Lowell Severino DO [address] [place] [address] PCP - General Family Medicine 05/20/19 documented as of this encounter
--- OUTSIDE RECORDS SUMMARY | 2023-10-18 15:53 | External Medical Summary ---
Author Name Unknown Address Unknown Organization [id number]:LABORATORY [facility] [place] - [address] [facility] [address] Laboratory Report Ordering Provider Test Date Status CLYDELEONOR 04/28/2023 11:14:26 Final Observation Date Value Abnormality Reference (Units ) Status SYNC LEUKOCYTES IN BLOOD BY AUTOMATED COUNT 04/28/2023 11:14:26 9.12 4.00-10.80 (K/uL) Final Segs 04/28/2023 11:14:26 73.5 40.0-75.0 (%) Final Lymphs % 04/28/2023 11:14:26 19.8 18.0-42.0 (%) Final Monos 04/28/2023 11:14:26 5.8 1.0-11.0 (%) Final Eosinophils 04/28/2023 11:14:26 0.0 0.0-6.0 (%) Final Basos 04/28/2023 11:14:26 0.5 0.0-2.0 (%) Final Immature Granulocyte, Percent 04/28/2023 11:14:26 0.4 0.0-2.0 (%) Final Absolute Segs 04/28/2023 11:14:26 6.69 1.80-7.70 (K/uL) Final Lymphs, absolute 04/28/2023 11:14:26 1.81 1.00-4.80 (K/ul) Final Monos, Abs 04/28/2023 11:14:26 0.53 0.00-1.10 (K/uL) Final Eos, Abs 04/28/2023 11:14:26 0.00 0.00-0.70 (K/uL) Final Basos, Abs 04/28/2023 11:14:26 0.05 0.00-0.20 (K/uL) Final Immature Granulocytes, Number 04/28/2023 11:14:26 0.04 0.00-0.20 (K/uL) Final Performing Location LABORATORY [facility] - [address] [facility] [address]
--- OUTSIDE RECORDS SUMMARY | 2023-10-18 15:53 | External Medical Summary ---
Author Name Unknown Address Unknown Organization [id number]:[facility]ATORY [facility] [place] [facility] - [address] [place] [address] Laboratory Report Ordering Provider Test Date Status LEONOR TANG 04/28/2023 11:14:26 Final Observation Date Value Abnormality Reference (Units ) Status ABO 04/28/2023 11:14:26 A Final RH 04/28/2023 11:14:26 Positive Final RED BLOOD CELL ANTIBODY SCREEN 04/28/2023 11:14:26 Negative Final SPECIMEN EXPIRATION DATE 04/28/2023 11:14:26 05/01/2023 23:59 Final Performing Location LAB[facility]ATORY [facility] [place] [facility] - [address] [place] [address]
--- OUTSIDE RECORDS SUMMARY | 2023-10-18 15:53 | External Medical Summary | Summary of Care ---
Author Name Unknown Organization [facility] Address [address] [place] [address] Phone [phone] Care Team Providers Care Thermodynamics Teacher Name Role Phone Juan CarlosLowell joseph Primary Care Provider [phone] Reason for Visit * Reason Comments Outpatient Testing Encounter Details Date Type Department Care Team (Late st Contact Info) Description 04/28/2023 11:50 AM EST Laboratory Laboratory, [facility] [address] [place] [id number] [facility] [address] [place] [address] Supervision of other normal , antepartum Allergies [...] a day 30 g 0 08/14/2020 Active Breast Pump Use as directed. 1 Each 0 04/07/2021 Active valACYclovir HCl 1 GM Oral Tablet [...] 021 Overview: Taking protein and supplements though vest front presser rather than Vitron C. Supervision of other [...] 04/28/2023) Immunizations Name Administration Dates Next Due HPV [...] money to buy more. Never true 04/14/20 23 Within the past 12 months, t he food you bought just didn't last and you didn't have money to get more. Never true 04/14/2023 [place] Depression Scale Answer Date Recorded [place] Depression Scale Total 0 04/28/2023 The thought [...] Description 05/03/2023 8:15 AM EST Imaging Radiology [facility] [address] [facility] [place] [address] 05/26/2023 9:15 AM EST Imaging Radiology [facility] 2nd [facility] [place] [address] [place] [address] 05/26/2023 11:15 AM EST Office Visit Gynecology/Obstetrics [address] [place] [address] Dali Glass PA-C [address] [place] [address] Nurse Franc[facility] [address] [place] [address] 06/27/2023 8:20 AM EST Office Visit Family Practice [facility] [place] [address] [facility] [place] [address] Lowell Severino DO [address] [facility] [place] [address] Pending Results Name Type Priority Associated Diagnoses Date /Time TYPE AND SCREEN Lab Routine Supervision of [...] normal , antepartum 04/28/2023 11:14 AM EST ANEMIA CBC Lab Routine Supervision of other normal , antepartum 04/28/2023 11:14 AM EST DIFFERENTIAL, AUTOMATED Lab Routine Supervision of other normal , antepartum 04/28/2023 11:14 AM EST ANEMIA REFLEX CHEMISTRY HOLD Lab Routine Supervision of other normal , antepartum 04/28/2023 11:14 AM EST HEPATITIS C ANTIBODY Lab Routine Supervision of other normal , antepartum 04/28/2023 11:14 AM EST HEPATITIS C RNA ADD ON Lab Routine Supervision of other normal , antepartum 04/28/2023 11:14 AM EST SYPHILIS ANTIBODY SCREEN Lab Routine Supervision of other normal , antepartum 04/28/2023 11:14 AM EST Health Maintenance Due Date Last Done Comments [...] antepartum documented in this encounter Care Teams Thermodynamics Teacher Relationship Specialty Start Date End Date Lowell Severino DO [address] [place] [address] PCP - General Family Medicine 05/20/19 documented as of this encounter
--- OUTSIDE RECORDS SUMMARY | 2023-10-18 15:53 | External Medical Summary ---
Author Name Unknown Address Unknown Organization [id number]:LABORATORY [facility] - [address] [place] [address] Laboratory Report Ordering Provider Test Date Status LEONOR TANG 04/28/2023 11:14:26 Final Observation Date Value Abnormality Reference (Units ) Status Rubella virus IgG Ab [Presence] in Serum 04/28/2023 11:14:26 Positive Abnormal Negative Final A positive result is consist ent with having had rubella virus or vaccination. Performing Location LABORATORY [facility] - [address] [place] [address]
--- OUTSIDE RECORDS SUMMARY | 2023-10-18 15:53 | External Medical Summary ---
Author Name Unknown Address Unknown Organization K01:LABORATORY [facility] [place] - [address] [facility] [address] Laboratory Report Ordering Provider Test Date Status LEONOR TANG 04/28/2023 11:14:26 Final Observation Date Value Abnormality Reference (Units ) Status Hep B surface Ag 04/28/2023 11:14:26 Negative Neg ative Final Performing Location LABORATORY [facility] - [address] [facility] [address]
--- OUTSIDE RECORDS SUMMARY | 2023-10-18 15:53 | External Medical Summary ---
Author Name Unknown Address Unknown Organization K01:LABORATORY [place] [address] [facility] [address] Laboratory Report Ordering Provider Test Date Status LEONOR TANG 04/28/2023 11:02:46 Final Observation Date Value Abnormality Reference (Units ) Status Chlamydia trachomatis rRNA [Presence] in Specimen by HOLA with probe detection 04/28/2023 11:02:46 Negative Negative Final No Chlamydia trachomatis det ected by sheep sorter-mediated nucleic acid amplification. Neisseria gonorrhoeae rRNA [ Presence] in Specimen by HOLA with probe detection 04/28/2023 11:02:46 Negative Negative Final No Neisseria gonorrhoeae det ected by sheep sorter-mediated nucleic acid amplification. Performing Location [facility] [place] [address] [facility] [address]
--- OUTSIDE RECORDS SUMMARY | 2023-10-18 15:53 | External Medical Summary ---
Author Name Unknown Address Unknown Organization K01:[facility] [address] [facility] [address] Laboratory Report Ordering Provider Test Date Status LEONOR TANG 04/28/2023 11:14:26 Final Observation Date Value Abnormality Reference (Units ) Status Hep C Ab 04/28/2023 11:14:26 Negative Negative Final Further HCV quantitative lloyd ting not performed per protocol. Performing Location [facility] [place] [address] [place] [address]
--- OUTSIDE RECORDS SUMMARY | 2023-10-18 15:53 | External Medical Summary ---
Author Name Unknown Address Unknown Organization K01:[facility] [place] - [address] [place] [id number] Laboratory Report Ordering Provider Test Date Status LEONOR TANG 04/28/2023 11:02:46 Final Observation Date Value Abnormality Reference (Units) Status Bacteria identified in Specimen by Culture 04/28/2023 11:02:46 No significant growth Final Test: Culture, Urine, Quanti tative
Specimen Source: Urine, Clean Catch
Specimen Type: Urine
Specimen Date: 04/28/2023 11:02 AM
Result Date: 04/29/2023 11:15 AM
Result Status: Final result
Resulting Lab: [facility]
[address]
[facility] [address]

CULTURE

No significant growth

null Performing Location [facility]ORY [facility] - [address] [facility] [address]
--- OUTSIDE RECORDS SUMMARY | 2023-10-18 15:53 | External Medical Summary ---
Author Name Unknown Address Unknown Organization K01:[facility]ORY [facility] [place] - [address] [facility] [address] [facility] [address] Laboratory Report Ordering Provider Test Date Status LEONOR TANG 04/28/2023 11:14:26 Final Observation Date Value Abnormality Reference (Units ) Status Treponema pallidum Ab [Presence] in Serum by Immunoassay 04/28/2023 11:14:26 Nonreactive Nonreactive Final No serologic evidence of syp hilis. No additional testing clinicially indicated at this time. Consider repeat testing in 2-4 weeks if acute or primary syphilis is suspected. Performing Location LABORATORY [facility] - [address] [place] [address]
--- OUTSIDE RECORDS SUMMARY | 2023-10-18 15:53 | External Medical Summary ---
Author Name Unknown Address Unknown Organization K01:LABORATORY [facility] [place] - [address] [facility] [address] Laboratory Report Ordering Provider Test Date Status LEONOR TANG 04/28/2023 11:14:26 Final Observation Date Value Abnormality Reference (Units ) Status WBC, Total 04/28/2023 11:14:26 9.12 4.00-10.8 0 (K/uL) Final RBC 04/28/2023 11:14:26 4.32 3.85-5.15 (M/uL) Final Hemoglobin 04/28/2023 11:14:26 13.6 12.0-15.3 (g/dL) Final Anemia reflex testing trigge rs on a HGB < 12.0 for Females and HGB < 13.0 for Males in accordance with the WHO Anemia Guidelines
Anemia reflex testing triggers on a HGB < 12.0 for Females and HGB < 13.0 for Males in accordance with the WHO Anemia Guidelines HCT 04/28/2023 11:14:26 40.7 36.0-45.2 (%) Final MCV 04/28/2023 11:14:26 94.2 81.5-97.5 (fL) Final MCH 04/28/2023 11:14:26 31.5 27.0-34.0 (pg) Final MCHC 04/28/2023 11:14:26 33.4 32.0-36.0 (g/dL) Final RDW 04/28/2023 11:14:26 12.5 11.5-15.5 (%) Final Platelets 04/28/2023 11:14:26 217 140-400 (K /uL) Final MPV 04/28/2023 11:14:26 12.1 6.6-11.1 ( fL) Final Nucleated erythrocytes/100 leukocytes [Ratio] in Blood by Automated count 04/28/2023 11:14:26 0 <=0 (/100 WBCs) Fi nal Performing Location LABORATORY [facility] - [address] [facility] [address]
--- OUTSIDE RECORDS SUMMARY | 2023-10-18 15:53 | External Medical Summary ---
Author Name Unknown Address Unknown Organization K01:LABORATORY [address] [facility] [address] Laboratory Report Ordering Provider Test Date Status LEONOR TANG 04/28/2023 11:14:26 Final Observation Date Value Abnormality Reference (Units ) Status HIV 1+2 Ab+HIV1 p24 Ag [Presence] in Serum or Plasma by Immunoassay 04/28/2023 11:14:26 Negative Negative Final Negative HIV-1/2 antigen and antibody screening tset results usually indicate the absence of HIV-1 and HIV-2 infection. However, such negative results do not rule-out acute HIV infection. If acute HIV-1 infection is highly suspected, it is recommended that a specimen be submitted for detection of HIV-1 RNA. Performing Location LABORATORY [place] [address] [facility] [place] [address]
--- NOTE | 2023-10-18 16:00 | Anesthesiology Consultation ---
Date of Service October 18, 2023 Assessment & Plan ASA ASA2 Proposed Anesthesia Anesthesia Type: Labor Epidural Risk / Benefits Reviewed With: PT / POA / Parent / Guardian, Accepts Plan and Informed Consent Obtained History Height/Weight Height: 5 ft 3 in Weight: 73.482 kg Allergies Allergy/AdvReac Type Severity Reaction Status Date / Time No Known Allergies Allergy Verified 07/01/21 13:14 Medications Home Medications Medication Instructions Recorded Confirmed Last Taken cholecalciferol (vitamin D3) 25 mcg PO DAILY 07/01/21 10/18/23 10/18/23 06:00 vits no.124-ferrous fum 1 tab PO DAILY@08 #90 tabs 07/03/21 10/18/23 10/18/23 06:00 27 mg iron-folic acid 800 mcg tablet ( Vitamin) Active Medications Generic Name Dose Route Start Last Admin Trade Name Freq PRN Reason Stop Dose Admin Lactated Ringer's 1,000 mls @ 150 mls/hr 10/18/23 10:14 10/18/23 10:20 Lr IV 10/20/23 10:13 150 mls/hr .Q6H40M PRN Administration L&D Protocol Protocol Penicillin G Potassium 3 mu/ 106 mls @ 100 mls/hr 10/18/23 13:14 10/18/23 14:48 Dextrose IV 10/28/23 13:13 100 mls/hr Q4H PRN Administration GBS(+) Until Delivery Oxytocin 30 units in 500 mls @ 14 mls/hr 10/18/23 10:18 10/18/23 14:45 Pitocin 30 Units/Nss IV 10/20/23 10:17 0.84 units/hr .Q24H PRN 14 mls/hr Labor Induction/Augmentation Titration Protocol 0.84 UNITS/HR Past Medical History Medical History Anemia 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 Exercise / Class Metabolic Activity II 4-5 Yardwork/Stairs/Walk up hill Past Family History Family History Grandfather (Maternal) Diabetes Skin cancer Grandfather (Paternal) Skin cancer Past Surgical History Surgical History [place] teeth extracted H/O elbow surgery Past Anesthesia History No Hx of Anesthesia Complications and No Family Hx of Anesthesia Complications History of PONV No Hx of PONV and No Hx of Motion Sickness Social History Smoking Status: Never smoker Hx Alcohol Use: No Hx Substance Use: No substance use type: does not use Review of Systems denies fever/cough/ colds/ chest pain/ SOB/ LORE denies LORE Physical Exam Vital Signs Last Vital Signs Temp 36.6 C 10/18/23 10:44 Pulse 80 10/18/23 15:57 Resp 20 10/18/23 10:44 BP 131/81 10/18/23 15:51 Pulse Ox 100 10/18/23 15:57 ENMT Mouth: no TMJ abnormality and no dentition abnormality Thyromental Distance: > or= 3.5 Finger Breadths Mallampati Class: II Neck neck extension not limited Respiratory normal respiratory effort; no respiratory distress Auscultation: lungs clear to auscultation bilaterally Cardiovascular Rate/Rhythm: regular rate and regular rhythm Neurologic moves all extremities Psychiatric Orientation: alert and oriented x 3 Testing Laboratory Results 10/18/23 10:31 10/18/23 10:31
[2023-10-18] MEDS ORDERED: SODIUM CHLORIDE 0.9% PF INJ 10 ML VIAL EPI PRN (16:01)
[2023-10-18] MEDS ORDERED: fentANYL 2 MCG/ML BUPIVacaine 0.125%-NSS 100ML BAG EPI PRN (16:01)
[2023-10-18] MEDS ORDERED: NALOXONE HCL 1 MG in SODIUM CHLORIDE 0.9% 1,000 ML IV PRN (16:01)
[2023-10-18] MEDS ORDERED: diphenhydrAMINE 50 MG/ML VIAL IV PRN (16:01)
[2023-10-18] MEDS ORDERED: BUPIVACAINE 0.25% PF 30 ML VIAL EPI PRN (16:01)
[2023-10-18] MEDS ORDERED: LIDOCAINE 2% MPF LOCAL 5 ML VIAL EPI PRN (16:01)
[2023-10-18] MEDS ORDERED: ROPIVACAINE 0.5% PF 5 MG/ML 20 ML VIAL EPI PRN (16:01)
[2023-10-18] MEDS ORDERED: fentaNYL citrate PF 100 MCG/2 ML VIAL EPI PRN (16:01)
[2023-10-18] MEDS ORDERED: ONDANSETRON INJ 2 MG/ML 2 ML VIAL IV PRN (16:01)
[2023-10-18] MEDS ORDERED: ePHEDrine sulfate 50 MG/ML AMP IV PRN (16:01)
[2023-10-18] MEDS ORDERED: NALOXONE HCL 0.4 MG/1 ML VIAL/CARP IV PRN (16:01)
[2023-10-18] MEDS ORDERED: NALBUPHINE HCL 5 MG in SYRINGE 0 ML IV PRN (16:01)
[2023-10-18] MEDS: LIDOCAINE 2%/EPINEPHRINE 1:200,000 20 ML PF ONE (16:28)
[2023-10-18] MEDS: BUPIVACAINE 0.25% PF 30 ML VIAL ONE (16:28)
[2023-10-18] MEDS: fentaNYL citrate PF 100 MCG/2 ML VIAL ONE (16:28)
[2023-10-18] MEDS: fentANYL 2 MCG/ML BUPIVacaine 0.125%-NSS 100ML BAG ONE (16:29)
--- NOTE | 2023-10-18 17:30 | Obstetrical Progress Note ---
Date of Service October 18, 2023 Assessment & Plan Admission and Anticipated Discharge Date Admission Date: October 18, 2023 Subjective Patient is reevaluated. She si comfortable now, received epidural for pain FHR was having mild early decels with contractions VE; 4/ 50%/ -2, OP [place] ctxs q 2-3 min FHR categ I Continue to monitor closely Results & Data Vital Signs (Past 12 Hours) Vital Signs Temp Pulse Resp BP Pulse Ox 10/18/23 17:27 96 10/18/23 17:27 82 10/18/23 17:23 93 10/18/23 17:23 84 10/18/23 17:22 98 10/18/23 17:22 80 10/18/23 17:17 98 10/18/23 17:17 93 H 10/18/23 17:17 112/63 10/18/23 17:12 100 10/18/23 17:12 82 10/18/23 17:07 97 10/18/23 17:07 98 H 10/18/23 17:03 81 10/18/23 17:03 119/63 10/18/23 17:02 98 10/18/23 17:02 83 10/18/23 16:57 97 10/18/23 16:57 77 10/18/23 16:52 98 10/18/23 16:52 95 H 10/18/23 16:47 99 10/18/23 16:47 85 10/18/23 16:44 98 H 10/18/23 16:44 124/70 10/18/23 16:42 98 10/18/23 16:42 91 H 10/18/23 16:40 97 H 10/18/23 16:40 129/71 10/18/23 16:37 98 10/18/23 16:37 91 H 10/18/23 16:34 90 10/18/23 16:34 124/61 10/18/23 16:32 97 10/18/23 16:32 89 10/18/23 16:30 83 10/18/23 16:30 125/69 10/18/23 16:28 78 10/18/23 16:28 120/68 10/18/23 16:27 100 10/18/23 16:27 74 10/18/23 16:26 77 06/05/24 16:26 119/69 10/18/23 16:24 76 10/18/23 16:24 122/68 10/18/23 16:22 100 10/18/23 16:22 78 10/18/23 16:22 125/76 10/18/23 16:20 73 10/18/23 16:20 121/75 10/18/23 16:17 100 10/18/23 16:17 85 10/18/23 16:12 99 10/18/23 16:12 110 H 10/18/23 16:07 99 10/18/23 16:07 78 10/18/23 16:02 100 10/18/23 16:02 88 10/18/23 15:57 100 10/18/23 15:57 80 10/18/23 15:52 99 10/18/23 15:52 74 10/18/23 15:51 86 10/18/23 15:51 131/81 10/18/23 14:46 93 H 10/18/23 14:46 125/71 10/18/23 13:50 77 10/18/23 13:50 120/77 10/18/23 12:45 88 10/18/23 12:45 126/82 10/18/23 11:58 80 10/18/23 11:58 128/81 10/18/23 10:44 20 10/18/23 10:44 36.6 C 20 10/18/23 10:44 97 H 10/18/23 10:44 127/80 10/18/23 08:14 118 H 10/18/23 08:14 135/87 10/18/23 07:59 37.1 C 20 10/18/23 07:53 144 H 133/87 10/18/23 07:52 20 10/18/23 07:52 37.1 C 20
[2023-10-18] MEDS: ePHEDrine sulfate 50 MG/ML AMP ONE (18:02)
[2023-10-18] MEDS: BUPIVACAINE 0.25% PF 30 ML VIAL EPI STA (18:02)
[2023-10-18] MEDS: fentaNYL citrate PF 100 MCG/2 ML VIAL EPI STA (18:02)
[2023-10-18] MEDS: SODIUM CHLORIDE 0.9% PF INJ 10 ML VIAL ONE (18:02)
[2023-10-18] MEDS: SODIUM CHLORIDE 0.9% PF INJ 10 ML VIAL EPI STA (18:03)
[2023-10-18] MEDS: LIDOCAINE 2%/EPINEPHRINE 1:200,000 20 ML PF EPI STA (18:03)
[2023-10-18] MEDS: MINERAL OIL 30 ML UDC ONE (19:05)
[2023-10-18] MEDS ORDERED: OXYTOCIN 30 UNITS/NSS 30 UNITS/500 ML BAG IV PRN (19:22)
[2023-10-18] MEDS ORDERED: HYDROCORTISONE ACETATE 25 MG SUPP PR PRN (19:22)
[2023-10-18] MEDS ORDERED: IBUPROFEN 600 MG TAB PO PRN (19:22)
[2023-10-18] MEDS ORDERED: ACETAMINOPHEN 325 MG TAB PO PRN (19:22)
[2023-10-18] MEDS ORDERED: bisacodyL 10 MG SUPP PR PRN (19:22)
[2023-10-18] MEDS ORDERED: BENZOCAINE 20% SPRY 85 APPLN/85 GM CAN EXT PRN (19:22)
--- NOTE | 2023-10-18 19:29 | Delivery Summary ---
Vaginal Delivery Summary Date of Service October 18, 2023 Vaginal Delivery Summary Patient was found to be fully dilated and desired to push. She pushed through 2 contractions and delivered the head and then shoulders with minimal traction without difficulty. The baby was handed off to the mother. He was vigorously moving and crying and the family requested delayed cord clamping. The vagina and perineum were checked and found to be intact, no laceration. There was a small thin septum / band like mucosal tissue starting from 6 o'clock at the hymen and ending at 3 o'clock position. Both ends were held with Lyndsay clamps and incised from the thin sides. The bases were tied with 3/ 0 Vicryl and was hemostatic. The cord was clampedx2 and cut. The placenta was delivered spontaneously as intact and complete. The uterus was explored and found to be empty. QBL was 216 ml. The fundus was firm The baby was a viable male infant, Apgars 8/9, the weight is pending The mother and the baby tolerated the procedure well. No complications happened and I was present during whole procedure.
[2023-10-18] MEDS: DOCUSATE SODIUM 100 MG CAP PO SCH (22:00)
[2023-10-18] MEDS: DIPHTHER/TETAN/PERTUS Vaccine (Tdap, Adol/Adult) 0.5mL IM ONE (23:11)
[2023-10-18] MEDS: MEASLES, MUMPS & RUBELLA VIRUS VACCINE (MMR) 0.5ML VIAL SQ ONE (23:12)
[2023-10-19 06:11] LABS: Hematocrit (blood only) 33.5 % (37.0-47.0); Hemoglobin 11.1 g/dl (12.0-16.0); Mean Corpuscular Hemoglobin 30.8 pg (25.0-34.0); Mean Corpuscular Hgb Conc 33.1 g/dL (32.0-36.0); Mean Corpuscular Volume 93.1 fL (80.0-100.0); Mean Platelet Volume 12.1 fL (9.4-12.4); Platelet Count 168 K/uL (130-400); RDW Coefficient of Variation 13.4 % (11.5-14.5); RDW Standard Deviation 45.7 fL (36.4-46.3); White Blood Count 15.12 K/ul (4.8-10.8)
--- NOTE | 2023-10-19 07:39 | Anesthesia Procedure Note ---
Date of Service October 19, 2023 Anesthesia Post Epidural Note Vital Signs Vital Signs: Temp Pulse Resp BP Pulse Ox O2 Del Method 98.1 F 106 H 16 118/76 95 Room Air 10/19/23 05:10 10/19/23 05:10 10/19/23 05:10 10/19/23 05:10 10/18/23 22:12 10/19/23 05:10 Notes Mental Status: alert / awake / arousable and participated in evaluation Nausea / Vomiting: adequately controlled Pain: adequately controlled Airway Patency, RR, SpO2: stable & adequate BP & HR: stable & adequate Hydration State: stable & adequate Neuraxial Anesthesia: was administered and sensory block is resolving Anesthetic Complications: no major complications apparent and Pt Satisfied with anesthetic care Epidural: Removed without complications and With tip intact
[2023-10-19] MEDS: FERROUS SULFATE 325 MG TAB PO SCH (08:24)
[2023-10-19] MEDS: PRENATAL VITAMIN 1 TAB PO SCH (08:24)
--- NOTE | 2023-10-19 11:08 | Obstetrical Progress Note ---
Date of Service October 19, 2023 Subjective Ambulation: ambulating normally Voiding: no voiding problems Passing Gas:: Yes Diet Tolerance:: regular diet Lochia:: Small Feeding Type:: breast feeding Current Pain Level(1-10): 0 doing well. plans for d/c today Physical Exam Constitutional WD/WN, vitals as above Gastrointestinal (Abdomen) abdomen soft and non-tender. Musculoskeletal Extremities: extremities normal to inspection Skin no rashes, warm and dry Neurologic patellar DTR's 2+ bilat, sensation intact Psychiatric A+Ox3, euthymic affect Results & Data Vital Signs (Past 12 Hours) Vital Signs Temp Pulse Resp BP O2 Del Method 10/19/23 05:10 36.7 C 106 H 16 118/76 Room Air 10/19/23 00:13 36.8 C 101 H 18 118/68 Room Air Laboratory Results Laboratory Results - last 72 hr 10/18/23 10/19/23 10:31 05:48 WBC 8.66 15.12 H RBC 3.78 L 3.60 L Hgb 11.7 L 11.1 L Hct 35.2 L 33.5 L MCV 93.1 93.1 MCH 31.0 30.8 MCHC 33.2 33.1 RDW Std Deviation 46.1 45.7 RDW Coeff of [place] 13.5 13.4 Plt Count 198 168 MPV 12.2 12.1 Sodium 136 Potassium 4.0 Chloride 106 Carbon Dioxide 22 Anion Gap 8 BUN 9 Creatinine 0.50 L Est Cr Clr Drug Dosing 152.3 Est GFR ( Amer) 146.4 Est GFR (Non-Af Amer) 126.3 BUN/Creatinine Ratio 18.0 Glucose 88 Calcium 8.5 L Total Bilirubin 0.3 AST 16 ALT 11 Alkaline Phosphatase 134 H Total Protein 6.6 Albumin 3.4 Globulin 3.2 Albumin/Globulin Ratio 1.1 RPR Nonreactive
[2023-10-19] MEDS ORDERED: bisacodyL 5 MG TABEC PO SCH (20:00)
== END 2023-10-19 20:55 | disposition home or self-care (01) | DRG 807 ==
LOC: 4S1 07:45 → 4E2 22:41